=== PATIENT | female | born 1945 | race Two or more races ===

== ENCOUNTER 2016-12-18 13:26 | Inpatient (IN) | payer MEDICARE, OTHER ==
[~2016-12-18] VITALS: Ht 160 cm; Wt 63.5 kg
[~2016-12-18 13:26] MED LIST: ALENDRONATE SOD70 MG ORAL; AMLODIPINE BESY10 MG PO; ATENOLOL50 MG PO; CEFTIN500 MG ORAL; DIOVAN320 MG PO; HYDROCHLOROTHIA25 MG PO; HYDROCHLORTHIAZIDE PO; NORCO 5-325 TA1 EACH PO; OMEPRAZOLE20 M3 PO; PRAVASTATIN SOD80 M1 PO; SERTRALINE HCL50 MG ORAL; ZOFRAN4 M1 ORAL
[2016-12-18] MEDS ORDERED: Meclizine 25mg tab ORAL ONE (14:00)
[2016-12-18 14:05] VITALS: BP 135/91
[2016-12-18] MEDS ORDERED: CRESTOR20 MG ORAL (14:06)
[2016-12-18] MEDS ORDERED: NORCO 10/3251 EA ORAL (14:06)
[2016-12-18] MEDS ORDERED: COMPAZINE25 MG RECTAL ×2 (14:06→19:45)
--- NOTE | 2016-12-18 14:07 | Emergency Room Report ---
History of Present Illness General Chief Complaint: Nausea, Vomiting, and Diarrhea Source: Family Member Present Illness HPI Patient is a 71-year-old female who presented after increased dizziness. Patient reported having increased spinning sensation associated with nausea and vomiting. Patient also reported having some ringing sensation both years. She denied any recent trauma. She denied any abdominal pain. She had not been having any fever she denied recent illness. The patient is nondiabetic. Allergies: Coded Allergies: ACETAMINOPHEN (Unverified Allergy, Intermediate, Patient develop rashes all over, 06/03/15) OXYCODONE (Unverified Allergy, Intermediate, Patient develop rashes all over, 06/03/15) Uncoded Allergies: percocet (Allergy, Unknown, 06/03/15) Patient History Reviewed Nursing Documentation: PMH: Agreed, PSxH: Agreed Nursing Documentation-PMH Hx Cardiac Problems: Yes Hx Hypertension: Yes Hx Cancer: No Hx Gastrointestinal Problems: Yes Hx Neurological Problems: No Physical Exam Vital Signs Date Time Temp Pulse Resp B/P Pulse Ox O2 Delivery O2 Flow Rate FiO2 12/18/16 13:53 98.2 96 15 135/91 99 Room Air Medical Decision Making Diagnostic Impression: Primary Impression: Generalized weakness Additional Impressions: Dehydration Vertigo Unsteady gait ER Course Patient presented for generalized weakness.Patient presented for generalized weakness. Differential diagnosis included was not limited to anemia, urinary tract infection, electrolyte abnormality, hypothyroidism, myocardial infarction , myasthenia gravis, dehydration, among others. Because of complexity of patient's case laboratory testing and imaging studies were ordered. EKG interpreted by me showed normal sinus rhythm patient had a prolonged QT interval there were no acute ST or T wave changes. The patient was given IV fluids as well as IV Zofran. CT the head read by read by radiology showed mild cerebral atrophy without evident acute hemorrhage or stroke. The patient was given meclizine. The patient started on IV antibiotics for urinary tract infection Laboratory Tests Test 12/18/16 14:05 White Blood Count 9.2 K/UL (4.8-10.8) Red Blood Count 4.71 M/UL (4.20-5.40) Hemoglobin 13.6 G/DL (12.0-16.0) Hematocrit 41.8 % (37.0-47.0) Mean Corpuscular Volume 89 FL (80-99) Mean Corpuscular Hemoglobin 28.9 PG (27.0-31.0) Mean Corpuscular Hemoglobin Concent 32.5 G/DL (32.0-36.0) Red Cell Distribution Width 13.0 % (11.6-14.8) Platelet Count 319 K/UL (150-450) Mean Platelet Volume 7.5 FL (6.5-10.1) Neutrophils (%) (Auto) 65.4 % (45.0-75.0) Lymphocytes (%) (Auto) 24.7 % (20.0-45.0) Monocytes (%) (Auto) 7.0 % (1.0-10.0) Eosinophils (%) (Auto) 1.7 % (0.0-3.0) Basophils (%) (Auto) 1.2 % (0.0-2.0) Urine Color Yellow Urine Appearance Slightly cloudy Urine pH 5 (4.5-8.0) Urine Specific [place] 1.020 (1.005-1.035) Urine Protein 2+ (NEGATIVE) H Urine Glucose (UA) Negative (NEGATIVE) Urine Ketones 1+ (NEGATIVE) H Urine Occult Blood 2+ (NEGATIVE) H Urine Nitrite Negative (NEGATIVE) Urine Bilirubin 1+ (NEGATIVE) H Urine Ictotest Negative Urine Urobilinogen 1 MG/DL (0.0-1.0) H Urine Leukocyte Esterase 3+ (NEGATIVE) H Urine RBC 2-4 /HPF (0 - 2) H Urine WBC 10-15 /HPF (0 - 2) H Urine Squamous Epithelial Cells Few /LPF (NONE/OCC) Urine Bacteria Few /HPF (NONE) Sodium Level 146 mEQ/L (135-145) H Potassium Level 3.0 mEQ/L (3.4-4.9) L Chloride Level 100 mEQ/L (98-107) Carbon Dioxide Level 26 mEQ/L (20-30) Anion Gap 20 (5-15) H Blood Urea Nitrogen 9 mg/dL (7-23) Creatinine 1.0 mg/dL (0.5-0.9) H Estimate Glomerular Filtration Rate 54.8 mL/min (>60) Glucose Level 133 mg/dL (74-106) H Calcium Level 10.0 mg/dL (8.6-10.2) Total Bilirubin 0.5 mg/dL (0.0-1.2) Aspartate Amino Transferase (AST) 17 U/L (5-40) Alanine Aminotransferase (ALT) 11 U/L (3-33) Alkaline Phosphatase 84 U/L (35-104) Troponin I < 0.30 ng/mL (<=0.30) Total Protein 7.1 g/dL (6.6-8.7) Albumin 4.3 g/dL (3.5-5.2) Globulin 2.8 g/dL Albumin/Globulin Ratio 1.5 (1.0-2.7) EKG Diagnostic Results Rate: normal Rhythm: NSR ST Segments: no acute changes Rhythm Strip Diag. Results EP Interpretation: yes Rhythm: NSR, no PVC's, no ectopy Last Vital Signs Date Time Temp Pulse Resp B/P Pulse Ox O2 Delivery O2 Flow Rate FiO2 12/18/16 14:05 98.2 15 135/91 99 Room Air 12/18/16 13:53 96 Status: unchanged Disposition: ADMITTED INPATIENT Condition: Serious Anthony Ritchie Dec 18, 2016 14:07
[2016-12-18 14:21] LABS: APPEARANCE,URINE SLIGHTLY CLOUDY; BASOPHILS % (AUTO) 1.2 % (0.0-2.0); EOSINOPHILS % (AUTO) 1.7 % (0.0-3.0); KETONES,URINE 1+ (NEGATIVE); LEUKOCYTE ESTERASE ,URINE 3+ (NEGATIVE); LYMPHOCYTES % (AUTO) 24.7 % (20.0-45.0); MEAN CORPUSCULAR HEMOGLOBIN 28.9 PG (27.0-31.0); MEAN CORPUSCULAR HGB CONC 32.5 G/DL (32.0-36.0); MEAN CORPUSCULAR VOLUME 89 FL (80-99); MEAN PLATELET VOLUME 7.5 FL (6.5-10.1); NEUTROPHILS % (AUTO) 65.4 % (45.0-75.0); NITRITE,URINE NEGATIVE (NEGATIVE); PH,URINE 5 (4.5-8.0); PLATELET COUNT 319 K/UL (150-450); PROTEIN,URINE 2+ (NEGATIVE); RED BLOOD COUNT 4.71 M/UL (4.20-5.40); UROBILINOGEN,URINE 1 MG/DL (0.0-1.0); WHITE BLOOD COUNT 9.2 K/UL (4.8-10.8)
[2016-12-18 14:28] LABS: BACTERIA,URINE FEW /HPF; SQUAMOUS EPITHELIAL CELL,UR FEW /LPF (NONE/OCC)
[2016-12-18 14:29] LABS: ICTOTEST NEGATIVE
[2016-12-18 14:32] LABS: ALBUMIN/GLOBULIN RATIO 1.5 (1.0-2.7); GLOMERULAR FILTRATION RATE 54.8 mL/min (>60); TOTAL PROTEIN 7.1 g/dL (6.6-8.7); TROPONIN I < 0.30 ng/mL (<=0.30)
[2016-12-18] MEDS ORDERED: cefTRIAXone 1 GM in NS 55 ML IVPB ONE (15:15)
[2016-12-18 15:30] VITALS: BP 130/62
--- NOTE | 2016-12-18 15:44 | Diagnostic Imaging Report ---
Indication: Back pain Comparison: None Findings: 3 views of the sacrum and coccyx were obtained. The bones are osteopenic. No definite fracture is identified. Sacroiliac are relatively symmetric. Degenerative changes of the lower lumbar spine with endplate and facet spur formation noted. There is a fracture of the left pubis which appears old. Impression: No acute sacral fracture identified. If there strong clinical suspicion or continued symptoms, suggest obtaining MRI. Osteopenia Old left pubis fracture Lower lumbar spondylosis
[2016-12-18] MEDS ORDERED: cefTRIAXone 1 GM in D5W 55 ML IVPB ONE (15:45)
--- NOTE | 2016-12-18 16:01 | Diagnostic Imaging Report ---
Indication: Dizziness Technique: Contiguous 5 mm thick transaxial imaging of the head obtained in a Siemens Sensation [address] scanner. Soft tissue and bone windows generated. Total Dose length Product (DLP): [address] Dose Index Volume (CTDIvol): 70.38 mGy Comparison: none Findings: There is mild prominence of the ventricles, basal cisterns, and cerebral sulci consistent with atrophy. Mild, nonspecific, white matter hypoattenuation is noted throughout the brain consistent with chronic small vessel disease. There is no midline shift, edema, acute hemorrhage, mass effect, or abnormal extra-axial fluid collections. Bones and extra osseous soft tissues are unremarkable. Impression: No acute intracranial bleed, mass effect or edema. Mild atrophy of the brain. Nonspecific white matter hypoattenuation probably due to chronic small vessel disease. The CT scanner at [facility] is accredited by the [employer] and the scans are performed using protocols designed to limit radiation exposure to as low as reasonably achievable to attain images of sufficient resolution adequate for diagnostic evaluation.
[2016-12-18] MEDS ORDERED: SERTRALINE HCL100 MG PO (19:45)
[2016-12-18] MEDS ORDERED: TENORMIN25 MG ORAL (19:45)
[2016-12-18 20:00] VITALS: BP 138/110
[2016-12-18] MEDS ORDERED: Meclizine 25mg tab ORAL PRN (20:30)
[2016-12-18] MEDS ORDERED: Pneumococcal Vaccine 25mcg/0.5ml IM ONE (22:00)
[2016-12-18] MEDS: Heparin 5000 units/ml inj SUBQ SCH (22:50)
[2016-12-18] MEDS: Norco 10mg/325mg tab ORAL PRN (22:52)
[2016-12-19 00:43] VITALS: BP 125/111
[2016-12-19 04:00] VITALS: BP 113/81
[2016-12-19 07:21] LABS: EOSINOPHILS % (AUTO) 3.5 % (0.0-3.0); LYMPHOCYTES % (AUTO) 36.3 % (20.0-45.0); MEAN CORPUSCULAR HEMOGLOBIN 29.4 PG (27.0-31.0); MEAN CORPUSCULAR HGB CONC 33.3 G/DL (32.0-36.0); MEAN CORPUSCULAR VOLUME 88 FL (80-99); MEAN PLATELET VOLUME 8.3 FL (6.5-10.1); MONOCYTES % (AUTO) 9.4 % (1.0-10.0); NEUTROPHILS % (AUTO) 49.8 % (45.0-75.0); PLATELET COUNT 256 K/UL (150-450); RED BLOOD COUNT 3.81 M/UL (4.20-5.40); RED CELL DISTRIBUTION WIDTH 12.8 % (11.6-14.8)
[2016-12-19 07:37] LABS: ALANINE AMINOTRANSFERASE 9 U/L (3-33); ALBUMIN/GLOBULIN RATIO 1.4 (1.0-2.7); ANION GAP 14 (5-15); ASPARTATE AMINO TRANSFERASE 14 U/L (5-40); CALCIUM 9.5 mg/dL (8.6-10.2); CARBON DIOXIDE 27 mEQ/L (20-30); CHLORIDE 103 mEQ/L (98-107); CHOLESTEROL 128 mg/dL (< 200); CHOLESTEROL/HDL RATIO 2.7 (3.3-4.4); CREATININE 0.8 mg/dL (0.5-0.9); GLOMERULAR FILTRATION RATE > 60 mL/min (>60); HEMOLYSIS 3; LDL CHOLESTEROL (CALC.) 55 mg/dL (60-99); POTASSIUM 3.7 mEQ/L (3.4-4.9); SODIUM 144 mEQ/L (135-145); TOTAL PROTEIN 6.2 g/dL (6.6-8.7)
[2016-12-19 08:00] VITALS: BP 144/104
[2016-12-19] MEDS: Sertraline 100mg tab ORAL SCH (08:34)
[2016-12-19] MEDS: Atenolol 25mg tab ORAL SCH (08:34)
[2016-12-19] MEDS: Irbesartan 150mg tablet ORAL SCH (08:36)
[2016-12-19] MEDS: Heparin 5000 units/ml inj SUBQ SCH ×2 (08:39→20:44)
[2016-12-19 12:00] VITALS: BP 136/82
[2016-12-19] MEDS: Norco 10mg/325mg tab ORAL PRN ×2 (13:13→20:50)
[2016-12-19] MEDS: D5 1/2NS w/KCl 20mEq 1,000 ML IV SCH ×3 (13:14→18:28)
[2016-12-19 16:00] VITALS: BP 118/74
[2016-12-19] MEDS: cefTRIAXone 1 GM in D5W 55 ML IVPB SCH (16:23)
--- NOTE | 2016-12-19 16:51 | Consultation ---
Consult Note Consult Note NEUROLOGY CONSULTATION: Full note dictated #[id number] 71 y/o, RH, HF with PH of HTN, high cholesterol, arthritis. About 1 week ago started to have episodes of positional vertigo. Yesterday vertigo became more frequent and severe and thus hospitalized. ON EXAM: Mild memory problems. Vertigo when head turned to left with nystagmus. IMPRESSION; Labyrinthine vertigo - possibly due to labyrinthitis vs initial presentation of BPV. REC: Valium 2 mg PO q HS. Rx of UTI When better will instruct on how to perform BD Exercises. Michele Beaver M.D., M.S.P.H. MICHELE BEAVER Dec 19, 2016 16:51
[2016-12-19 18:11] LABS: HEMOGLOBIN A1C 5.2 % (< 6.0)
[2016-12-19 20:00] VITALS: BP 124/77
[2016-12-19] MEDS ORDERED: cefTRIAXone 1gm/D5W 55ml IVPB SCH ×2 (22:00)
--- NOTE | 2016-12-19 22:17 | Consultation ---
DATE OF CONSULTATION: 12/19/2016 NEUROLOGY CONSULTATION CONSULTING PHYSICIAN: Andrés Beaver M.D. REQUESTING PHYSICIAN: Aman Hardin M.D. HISTORY: Ms. Lesia Wallace is a 71-year-old, right-handed lady who does have a past history of hypertension, dyslipidemia, and arthritis. She was functioning relatively well until approximately a week ago when she started to have episodes of vertigo. These episodes of vertigo consist of a spinning sensation, and the first time she noticed this sensation she was when she was turning in bed. Since then, she has had multiple similar episodes lasting for a few seconds to what she thinks is a minute or so and these episodes almost always occur when she is turning in bed or when she is walking around. She denies any change in her hearing, any viral syndrome prior to this problem starting, any weakness on one side or the other, numbness on one side or the other, problems with speech, problems with language, problems with vision, or any other neurological symptoms. She says that she did have an episode of vertigo approximately 25 years ago but she does not remember the exact details of what happened at that time. PAST MEDICAL HISTORY: Significant for hypertension, dyslipidemia, and arthritis. FAMILY HISTORY: One of her daughters has hypertension and arthritis, another daughter from liver disease. PERSONAL HISTORY: Home: She lives with other family members. 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 Habits: There is no history of alcohol, tobacco, or illicit drug use. PRESENT MEDICATIONS: Include ceftriaxone, Norvasc, Tenormin, Zoloft, Protonix, Avapro, Pravachol, heparin for DVT prophylaxis, [place] as needed, Zofran as needed, Compazine as needed, Antivert as needed. PHYSICAL EXAMINATION: GENERAL: She is a well-developed, well-nourished, pleasant lady, lying in bed, in no acute distress. VITAL SIGNS: Pulse 96 per minute, blood pressure 136/82 mmHg, respirations 20 per minute, and temperature 98.9 degrees Fahrenheit. HEAD: Normocephalic and atraumatic. EENT: Examination benign NECK: No neck rigidity was observed. NEUROLOGICAL EXAMINATION: MENTAL STATUS EXAMINATION: She was alert and awake. She was oriented to person, place, and time except for the exact date. She was able to recall 3/3 words immediately after 1 minute and after 3 minutes. She was able to remember president Obama but could not remember presidents prior to that. Her mathematical skills were fairly good. Her visuospatial function was impaired. SPEECH: She had no dysarthria. LANGUAGE: She had no aphasia in Sami. CRANIAL NERVE EXAMINATION: II: The visual min were intact to confrontation testing. III, IV & : External ocular movements were full and the pupils 3 mm in diameter equal, round, regular, and reactive to light. V: She had normal facial sensations and the temporales, masseters, and pterygoids functioned normally. VII: She had normal facial expressions and no facial asymmetry. VIII: She was able to hear well bilaterally and had no nystagmus. IX: The palate moved symmetrically on phonation. X: She had no hoarseness of voice. XI: The sternocleidomastoids and trapezii functioned normally. XII: The tongue was in the midline without any fasciculations or atrophy. MOTOR SYSTEM: The tone was normal in all four extremities. Examination of muscle mass revealed no focal wasting. Examination of power revealed grade 5/5 power in all muscle groups tested. SENSORY EXAMINATION: She had intact sensations to pinprick, light touch, and graphesthesia. COORDINATION: She performed well on oerrow-xt-afvf and ilfg-sw-fwus testing. Romberg test was negative. REFLEXES: A 1++ and bilaterally symmetrical at the biceps, triceps, and brachioradialis. 1+ at both knees, 0 at both ankles. The plantar responses were flexor bilaterally. STANCE: She had a normal stance. GAIT: She had a normal gait. Hallpike maneuver: She had vertigo and nystagmus when the head was moved to the left side. This lasted for approximately 15 seconds and then fatigued. She felt much better when her head was placed in the midline. She had no nystagmus or vertigo when her head was turned to the right side. When the head was done to the left side again she again had a vertigo but this time the nystagmus and vertigo only lasted for approximately 5 seconds. DIAGNOSTIC IMPRESSION: 1. Ms. Lesia Wallace is a 71-year-old, right-handed lady who does have a past history of hypertension and dyslipidemia, who approximately a week ago started to have spells of vertigo, these vertiginous spells usually occur with a change in position either in bed or when she is up and about. 2. On neurological examination, at this time, she does have mild problems with orientation, memory, and visuospatial function. She also has globally diminished reflexes and has vertigo and nystagmus when the head is turned to the left side on Hallpike maneuver, this vertigo and nystagmus is fatigable. 3. Laboratory data obtained thus far revealed that she is mildly anemic with a hemoglobin of 11.2. The chemistry panel is relatively benign. The TSH is normal. However her urinalysis reveals 3+ leukocyte esterase, 2 to 4 red blood cells, and 10 to 15 white blood cells per high-power field compatible with a urinary tract infection. 4. The patient's history and neurological examination are most compatible with labyrinthine vertigo. This labyrinthine vertigo could either be due to labyrinthitis most probably of a viral nature, versus the initial presentation of benign positional vertigo. RECOMMENDATIONS: 1. The patient was given an explanation of the above mentioned findings. 2. She will be started on Valium 2 mg p.o. at bedtime. 3. If she is feeling a little better tomorrow, we will instruct her on how to perform Flowers-Daroff exercises. 4. She should be worked up thoroughly for other treatable causes of vertigo with in addition to the laboratory tests already done, a B12 level, folate level, vitamin D level, RPR glycohemoglobin, Westergren sedimentation rate, and TSH. Thank you for entrusting me with the care of Ms. Poli Wallace. I shall follow her with you. Andrés Beaver M.D., M.S.P.H. DR: Ermelinda JOB#: [id number] ALEX
--- NOTE | 2016-12-19 23:28 | History and Physical Report ---
DATE OF ADMISSION: 12/18/2016 HISTORY OF PRESENT ILLNESS: The patient is a very pleasant 71-year-old female with a history of hypertension who presented to the emergency room with complaints of dizziness over the past few days, room spinning, some nausea and vomiting. She did also complain of some ringing sensation in both ears. She denies any fall or trauma. She admits to having had a headache. She denies any fevers or chills. Denies any URI symptoms. Denies any abdominal pain. No changes in her bowel habits. Denies any fevers or chills. PAST MEDICAL HISTORY: History of hypertension, history of chronic back pain, history of vertigo in the past, history of nausea in the past, history of osteoarthritis, history of hyperlipidemia and history of arthritis. MEDICATIONS: Please see reconciled medication list. ALLERGIES: She is allergic apparently to oxycodone and acetaminophen. The patient developed a rash in June 2015. SOCIAL HISTORY: She does not smoke and does not drink any alcohol. She has a very supportive family. FAMILY HISTORY: Noncontributory. REVIEW OF SYSTEMS: She denies any visual problems. Denies any sore throat. She denies any cough. No fevers or chills. She states she fell as a result of her dizziness over the past few days. She also feels weak and fatigued. PHYSICAL EXAMINATION: GENERAL: She is well developed and well nourished, currently in no apparent distress. VITAL SIGNS: Blood pressure in the ER was 135/91, respirations of 15, temperature 98.2 degrees, pulse 96, and saturations 99% room air. HEENT: Head is normocephalic and atraumatic. Pupils are equal and reactive to light. Extraocular muscles are intact. Eyes are anicteric. NECK: Supple. No jugular venous distention. LUNGS: Clear. HEART: Tachycardic. S1 and S2. ABDOMEN: Soft. Positive bowel sounds. EXTREMITIES: No clubbing, cyanosis, or edema. NEUROLOGIC: Nonfocal. She has negative brain maneuver. LABORATORY AND DIAGNOSTIC: EKG reveals a sinus rhythm without any acute ST-T wave changes. Labs reveal a white count of 9.2, hemoglobin 13.6, hematocrit 41.8 and platelet count 319,000. Chemistry reveals a sodium 144, potassium 3.7, chloride 103, bicarbonate 27, BUN 7 and creatinine 0.8. Glycohemoglobin was 5.0. Lactic acid 0.8. Troponin less than 0.38. B12 level greater than 2000. TSH was normal. Cholesterol was 128, LDL was 55 and HDL was 48. Urinalysis reveals 10 to 15 WBCs, 3+ leukocyte esterase, 1+ ketones, and 2+ occult blood. Head CT reveals no acute intracranial bleed, mass-effect or edema. Mild atrophy of the brain. Nonspecific white matter hypoattenuation, probably due to chronic small vessel disease. They also did x-rays of her sacrum, which revealed osteopenia, old left pubis fracture. No acute sacral fracture. Lumbar spondylosis. ASSESSMENT AND PLAN: The patient is a very pleasant 71-year-old female, history of hypertension, hypercholesterolemia, and arthritis presented to the emergency room with dizziness, lightheadedness, room spinning and fall. The patient also complained of some tinnitus. The patient has been admitted. She also appears to be dehydrated and had urinary tract infection. She will be given IV fluids, given antibiotics for UTI, and check her cultures. I will order an MRI of her brain and have Neurology consultation see her as well from Dr. Beaver. The patient should be on DVT and ulcer prophylaxis. Aman Hardin M.D. DR: MARGY JOB#: [id number] CC:
[2016-12-20] VITALS: BP 136/96
[2016-12-20 04:00] VITALS: BP 128/89
[2016-12-20 07:08] LABS: EOSINOPHILS % (AUTO) 3.8 % (0.0-3.0); LYMPHOCYTES % (AUTO) 34.8 % (20.0-45.0); MEAN CORPUSCULAR HEMOGLOBIN 29.6 PG (27.0-31.0); MEAN CORPUSCULAR HGB CONC 32.9 G/DL (32.0-36.0); MEAN CORPUSCULAR VOLUME 90 FL (80-99); MEAN PLATELET VOLUME 8.2 FL (6.5-10.1); MONOCYTES % (AUTO) 8.1 % (1.0-10.0); NEUTROPHILS % (AUTO) 52.3 % (45.0-75.0); PLATELET COUNT 232 K/UL (150-450); RED BLOOD COUNT 3.84 M/UL (4.20-5.40); RED CELL DISTRIBUTION WIDTH 13.4 % (11.6-14.8)
[2016-12-20 07:24] LABS: ANION GAP 15 (5-15); CALCIUM 9.2 mg/dL (8.6-10.2); CARBON DIOXIDE 25 mEQ/L (20-30); CHLORIDE 107 mEQ/L (98-107); CREATININE 0.7 mg/dL (0.5-0.9); GLOMERULAR FILTRATION RATE > 60 mL/min (>60); HEMOLYSIS 14; POTASSIUM 4.4 mEQ/L (3.4-4.9); SODIUM 147 mEQ/L (135-145)
[2016-12-20] MEDS: D5 1/2NS w/KCl 20mEq 1,000 ML IV SCH (07:57)
[2016-12-20 08:00] VITALS: BP 133/90
[2016-12-20] MEDS: Sertraline 100mg tab ORAL SCH (08:51)
[2016-12-20] MEDS: Irbesartan 150mg tablet ORAL SCH (08:52)
[2016-12-20] MEDS: Atenolol 25mg tab ORAL SCH (08:52)
[2016-12-20] MEDS: Heparin 5000 units/ml inj SUBQ SCH (08:54)
[2016-12-20] MEDS: Norco 10mg/325mg tab ORAL PRN (09:00)
[2016-12-20 12:00] VITALS: BP 131/95
--- NOTE | 2016-12-20 12:52 | Neurology Progress Note ---
Interim History Interim History Interim History Ms. Poli Wallace feels better today. The vertigo has been less frequent and less severe. She denies any new neurologic symptoms. She specifically denies any weakness, numbness, hearing problems , visual problems, or language problems. Review of Systems Neuro Review of Systems Benign. Objective Physical Exam Last Vital Signs Date Time Temp Pulse Resp B/P Pulse Ox O2 Delivery O2 Flow Rate FiO2 12/20/16 12:00 97.2 89 18 131/95 96 Room Air Laboratory Tests Test 12/19/16 17:35 12/20/16 05:50 Erythrocyte Sedimentation Rate 40 MM/HR (0-30) H Hemoglobin A1c 5.2 % (< 6.0) Vitamin B12 Level > 2000 pg/mL (211-946) H Vitamin D 25-Hydroxy Pending 25-Hydroxy Vitamin D2 Pending 25-Hydroxy Vitamin D3 Pending Folate 13.1 ng/mL (>3.0) Rapid Plasma Reagin Non reactive (Non Reactive) White Blood Count 7.0 K/UL (4.8-10.8) Red Blood Count 3.84 M/UL (4.20-5.40) L Hemoglobin 11.4 G/DL (12.0-16.0) L Hematocrit 34.5 % (37.0-47.0) L Mean Corpuscular Volume 90 FL (80-99) Mean Corpuscular Hemoglobin 29.6 PG (27.0-31.0) Mean Corpuscular Hemoglobin Concent 32.9 G/DL (32.0-36.0) Red Cell Distribution Width 13.4 % (11.6-14.8) Platelet Count 232 K/UL (150-450) Mean Platelet Volume 8.2 FL (6.5-10.1) Neutrophils (%) (Auto) 52.3 % (45.0-75.0) Lymphocytes (%) (Auto) 34.8 % (20.0-45.0) Monocytes (%) (Auto) 8.1 % (1.0-10.0) Eosinophils (%) (Auto) 3.8 % (0.0-3.0) H Basophils (%) (Auto) 1.0 % (0.0-2.0) Sodium Level 147 mEQ/L (135-145) H Potassium Level 4.4 mEQ/L (3.4-4.9) Chloride Level 107 mEQ/L (98-107) Carbon Dioxide Level 25 mEQ/L (20-30) Anion Gap 15 (5-15) Blood Urea Nitrogen 7 mg/dL (7-23) Creatinine 0.7 mg/dL (0.5-0.9) Estimat Glomerular Filtration Rate > 60 mL/min (>60) Glucose Level 92 mg/dL (74-106) Calcium Level 9.2 mg/dL (8.6-10.2) Neurologic Exam Objective PHYSICAL EXAMINATION: GENERAL: She is a well-developed, well-nourished, pleasant lady, lying in bed, in no acute distress. HEAD: Normocephalic and atraumatic. EENT: Examination benign NECK: No neck rigidity was observed. NEUROLOGICAL EXAMINATION: MENTAL STATUS EXAMINATION: She was alert and awake. She was oriented to person, place, and time except for the exact date. She was able to recall 3/3 words immediately after 1 minute and after 3 minutes. She was able to remember president Obama but could not remember presidents prior to that. Her mathematical skills were fairly good. Her visuospatial function was impaired. SPEECH: She had no dysarthria. LANGUAGE: She had no aphasia in Yi. CRANIAL NERVE EXAMINATION: II: The visual min were intact to confrontation testing. III, IV & : External ocular movements were full and the pupils 3 mm in diameter equal, round, regular, and reactive to light. V: She had normal facial sensations and the temporales, masseters, and pterygoids functioned normally. VII: She had normal facial expressions and no facial asymmetry. VIII: She was able to hear well bilaterally and had no nystagmus. IX: The palate moved symmetrically on phonation. X: She had no hoarseness of voice. XI: The sternocleidomastoids and trapezii functioned normally. XII: The tongue was in the midline without any fasciculations or atrophy. MOTOR SYSTEM: The tone was normal in all four extremities. Examination of muscle mass revealed no focal wasting. Examination of power revealed grade 5/5 power in all muscle groups tested. SENSORY EXAMINATION: She had intact sensations to pinprick, light touch, and graphesthesia. COORDINATION: She performed well on keeeqj-hy-mfmo and xdxe-dg-dnyn testing. Romberg test was negative. REFLEXES: A 1++ and bilaterally symmetrical at the biceps, triceps, and brachioradialis. 1+ at both knees, 0 at both ankles. The plantar responses were flexor bilaterally. STANCE: She had a normal stance. GAIT: She had a normal gait. Hallpike maneuver: She had vertigo and nystagmus when the head was moved to the left side. This lasted for approximately 5 seconds and then fatigued. She felt much better when her head was placed in the midline. She had no nystagmus or vertigo when her head was turned to the right side. Impression/Recommendations Diagnostic Impression 1. Ms. Lesia Wallace is a 71-year-old, right-handed lady who does have a past history of hypertension and dyslipidemia, who approximately a week ago started to have spells of vertigo, these vertiginous spells usually occur with a change in position either in bed or when she is up and about. 2. She feels better today. The vertigo is less frequent and less severe today. 3. On neurological examination, at this time, she does have mild problems with orientation, memory, and visuospatial function. She also has globally diminished reflexes and has vertigo and nystagmus when the head is turned to the left side on Hallpike maneuver, this vertigo and nystagmus is fatigable. 4. Laboratory data obtained thus far revealed that she is mildly anemic with a hemoglobin of 11.2. The chemistry panel is relatively benign. The TSH is normal. However her urinalysis reveals 3+ leukocyte esterase, 2 to 4 red blood cells, and 10 to 15 white blood cells per high-power field compatible with a urinary tract infection. 5. The patient's history and neurological examination are most compatible with labyrinthine vertigo. This labyrinthine vertigo could either be due to labyrinthitis most probably of a viral nature, versus the initial presentation of benign positional vertigo. It is better today. Recommendations 1. Continue present management. 2. Continue Valium 2 mg p.o. at bedtime. 3. She was instructed on how to perform Flowers-Daroff exercises and was told to perform 5 rotations in the morning and at night.. 4. Increase activity as tolerated. Michele Najera M.D., eMaghan. MICHELE NAJERA Dec 20, 2016 12:52
[2016-12-20] MEDS: cefTRIAXone 1 GM in D5W 55 ML IVPB SCH (15:48)
[2016-12-20 16:00] VITALS: BP 130/88
[2016-12-20] MEDS ORDERED: Tubing IV Secondary IV ONE (19:59)
[2016-12-20] MEDS ORDERED: NS 275ml ONE (19:59)
--- NOTE | 2016-12-21 10:31 | Discharge Summary ---
Discharge Summary Hospital Course Date of Admission Dec 18, 2016 at 17:07 Date of Discharge Dec 20, 2016 at 20:00 Admitting Diagnosis GEN. WEAKNESS HPI Chitra Poli Wallace is a 71 year old female who was admitted on Dec 18, 2016 at 17:07 for Generalized Weakness Hospital Course [id number] Discharge Discharge Disposition Patient was discharged to Home (01) Discharge Diagnoses: Tammy Parsons NP Dec 21, 2016 10:31
--- NOTE | 2016-12-22 05:37 | Discharge Summary 2 SIG ---
DATE OF ADMISSION: 12/18/2016 DATE OF DISCHARGE: 12/20/2016 ABRASIVE GRINDER: Andrés Beaver M.D. BRIEF HOSPITAL COURSE: The patient is a pleasant 71-year-old female with history of hypertension, presented to emergency room complaining of dizziness for the past few days, described as the room spinning with associated nausea and vomiting. She also complained of ringing sensation in both ears. Denies any fall or trauma and admits to having headache. She has a history of hypertension, chronic back pain, vertigo in the past, osteoarthritis, hyperlipidemia, and arthritis. At ED, EKG revealed sinus rhythm without acute ST to T-wave changes. Head CT revealed no acute intracranial bleed, mass effect, or edema with mild atrophy of the brain and nonspecific white matter hypoattenuation. X-ray of the sacrum revealed osteopenia with an old left pubic fracture. No acute sacral fracture. She appeared dehydrated and urinalysis revealed 10 to 15 WBCs with 3+ leukocyte esterase, 2+ occult blood, and 1+ ketone. She was given IV fluids and IV antibiotic. Dr. Beaver was consulted. Neurologic examination was done. A Hallpike maneuver was done. The patient had vertigo and nystagmus when the head was moved to the left side. She had no nystagmus or vertigo when the head was turned to the right. The patient's history and neurologic examination are most compatible with labyrinthine vertigo. She was started on Valium 2 mg p.o. q.h.s. and was given instructions on how to perform Flowers-Daroff exercises and was told to perform five rotations in the morning and at night. Urine culture showed growth of E. coli. The patient was given IV ceftriaxone. She was eventually discharged home. FINAL DIAGNOSES: 1. Labyrinthine vertigo. 2. Urinary tract infection with Escherichia coli. 3. Hypertension. 4. Dyslipidemia. 5. Osteopenia. 6. Dehydration. 7. Arthritis. Aman Hardin M.D. I have been assigned to dictate discharge summary on this account and I was not involved in the patient's management. Tammy Parsons N.P. DR: JULIO JOB#: [id number] CC:
[2016-12-22 08:09] LABS: VITAMIN D 25-OH TOTAL 33 ng/mL (.)
--- NOTE | 2016-12-22 17:07 | Diagnostic Imaging Report ---
APPROVED REPORT CPT Code: 70860 Present Symptoms Comments: Pain R/O DVT BILATERAL: Imaging reveals a patent deep venous system bilaterally. There is no evidence of thrombus within the femoral, popliteal or tibial segments. The greater saphenous veins are also within normal limits. Doppler indicates normal spontaneous flow within these segments.
--- NOTE | 2016-12-23 11:45 | Diagnostic Imaging Report ---
Indication: Dizziness Technique: Study was performed in a 1.5 Janis magnet. Gadolinium-enhanced MR angiography of the extracranial portions of both carotid arteries performed from the thoracic arch to the skull base. Maximum intensity projection images displayed in different projections. Comparison: None Findings: Right carotid: No significant carotid stenosis is identified. Left carotid: No significant stenosis is identified. Vertebral arteries below the skull base appear unremarkable. Impression: Negative MRA of the neck. No significant extracranial carotid stenosis identified.
--- NOTE | 2016-12-23 11:45 | Diagnostic Imaging Report ---
Indication: Dizziness Technique: The head was imaged in a 1.5 Janis magnet. Sequences obtained include sagittal and axial T1 FLAIR, axial T2 fast spin echo with fat saturation, axial T2 FLAIR, diffusion and ADC map. Gadolinium-enhanced axial and coronal T1 FLAIR obtained also. Comparison: None Findings: There is mild prominence of the sulci, ventricles, and basal cisterns consistent with atrophy. Mild, nonspecific T2 hyperintensity noted within white matter. This may be due to chronic small vessel disease. No abnormal enhancement is identified. There is no restricted diffusion. Manrique-white differentiation is normal. There is no mass effect, midline shift, edema, or hemorrhage. There are no abnormal extra-axial or intra-axial fluid collections. The corpus callosum and sella are unremarkable. The brainstem and cerebellum are unremarkable. Bone marrow signal within the visualized osseous structures appears age appropriate and unremarkable otherwise. The colon thickening in the paranasal sinuses especially the right maxillary sinus noted. Impression: No acute intracranial findings. Age-related findings including atrophy and evidence of chronic small vessel disease involving white matter tracts. Sinusitis
--- NOTE | 2017-01-11 13:39 | Cardiology Report ---
APPROVED REPORT EXAM: Two-dimensional and M-mode echocardiogram with Doppler and color Doppler. INDICATION Dizziness and Vertigo M-Mode DIMENSIONS Aortic Root2.7 (2.0-3.7cm) Aortic Cusp Exc.1.8 (1.5-2.0cm) Normal left ventricular chamber size, systolic function and wall motion. M-mode measurements not obtainable due to cardiac structure. Left ventricular ejection fraction estimated to be 60-65 %. No evidence of left ventricular hypertrophy. Small anterior pericardial effusion. Moderate posterior pericardial effusion. All other cardiac chamber sizes are within normal limits. Focal aortic valve sclerosis with adequate cusp excursion Thickened mitral valve leaflets with normal excursion. Mild mitral annulus and aortic root calcification. Pulmonic valve not well visualized. Normal tricuspid valve structure. IVC is normal in size with physiologic collapse. A color flow and spectral Doppler study was performed and revealed: No aortic regurgitation. No mitral regurgitation. Left ventricular diastolic dysfunction grade 1. Mild tricuspid regurgitation. Tricuspid systolic velocities suggests peak right ventricular systolic pressure of 24 mmHg
== END 2016-12-20 20:00 | disposition home or self-care (01) | DRG 149 ==
LOC: EMR 14:28 → 3E 17:07 → EDBEDREQ 17:35
DX: H81.09 Meniere's disease, unspecified ear (principal); N39.0 Urinary tract infection, site not specified; E86.0 Dehydration; I10 Essential (primary) hypertension; E78.00 Pure hypercholesterolemia, unspecified; M19.90 Unspecified osteoarthritis, unspecified site; H93.19 Tinnitus, unspecified ear; B96.20 Unspecified Escherichia coli [E. coli] as the cause of diseases classified elsewhere; E78.5 Hyperlipidemia, unspecified; Z23 Encounter for immunization
CPT/HCPCS: 36415; 70450; 70548; 70553; 72220; 80048; 80053; 80061; 81001; 82306; 82607; 82746; 83036; 83605; 83880; 84443; 84484; 85025; 85651; 86592; 86710; 87040; 87086; 87181; 90732; 93306; 93970; A9585; J2405; J8499

== ENCOUNTER 2018-01-13 14:06 | Outpatient (CLI) | payer MEDICARE, OTHER ==
[~2018-01-13 14:06] MED LIST changes: +COMPAZINE25 MG RECTAL; +CRESTOR20 MG ORAL; +NORCO 10/3251 EA ORAL; +SERTRALINE HCL100 MG PO; +TENORMIN25 MG ORAL
--- NOTE | 2018-01-13 15:23 | Diagnostic Imaging Report ---
Indication: Dyspnea Comparison: 01/30/2013 2 views of the chest obtained. The lungs are clear. Heart size is normal. The aorta is ectatic and moderately calcified. Bones are osteopenic. IMPRESSION: No acute disease
== END 2018-01-13 16:06 | disposition home or self-care (01) ==
LOC: RAD 14:06
DX: I10 Essential (primary) hypertension (principal); M85.80 Other specified disorders of bone density and structure, unspecified site; R06.00 Dyspnea, unspecified
CPT/HCPCS: 71046

== ENCOUNTER 2018-05-21 06:32 | Day surgery (SDC) | payer MEDICARE, OTHER ==
--- NOTE | 2018-05-20 23:37 | Pre-Procedure Note/Attestation ---
Pre-Procedure Note/Attestation Complete Prior to Procedure Planned Procedure: right - Removal of cataract and placement of intraocular lens right eye Procedure Narrative: Removal of cataract and placement of intraocular lens, right eye Indications for Procedure Pre-Operative Diagnosis: Cataract, combined, right eye Attestation I attest that I discussed the nature of the procedure; its benefits; risks and complications; and alternatives (and the risks and benefits of such alternatives ), prior to the procedure, with the patient (or the patient's legal insurance healthcare representative). I attest that, if there was a reasonable possibility of needing a blood transfusion, the patient (or the patient's legal insurance healthcare representative) was given the [place] Department of Health Services standardized written summary, pursuant to the Ariel Selena Blood Safety Act ([place] Health and Safety Code # 1645, as amended). I attest that I re-evaluated the patient just prior to the surgery and that there has been no change in the patient's H&P, except as documented below: Toby Sheehan MD May 20, 2018 23:37
[~2018-05-21] VITALS: Ht 152.4 cm; Wt 67.1 kg
[2018-05-21] VITALS (8 sets, daily range): BP systolic 125–156; BP diastolic 75–98
[~2018-05-21 06:32] MED LIST changes: +Pred Forte 1% Opth Susp 1ml RIGHT EYE ONE
[2018-05-21] MEDS ORDERED: Pred Forte 1% Opth Susp 1ml ONE ×2 (07:13→13:34)
[2018-05-21] MEDS ORDERED: Pred Forte 1% Opth Susp 1ml RIGHT EYE ONE (07:30)
[2018-05-21] MEDS: Ciprofloxacin Opth Soln 2.5ml RIGHT EYE SCH ×3 (07:31→07:49)
[2018-05-21] MEDS: Cyclopentolate 1% Opth Sol 2ml RIGHT EYE SCH ×3 (07:31→07:49)
[2018-05-21] MEDS: Tropicamide 1% Opth 15ml Soln RIGHT EYE SCH ×3 (07:31→07:49)
[2018-05-21] MEDS: Phenylephrine 10% Opth Soln 5ml RIGHT EYE SCH ×3 (07:31→07:49)
[2018-05-21] MEDS: Akten 3.5% 1ml Btl RIGHT EYE SCH ×3 (07:32→07:50)
[2018-05-21] MEDS ORDERED: fentaNYL 100 mcg/2 mL IV ONE (12:05)
[2018-05-21] MEDS ORDERED: Lidocaine 1% MPF 10mg/ml 5ml ONE ×3 (12:05→13:59)
[2018-05-21] MEDS ORDERED: LR 1000ml 1,000 ML IVLG SCH (12:24)
--- NOTE | 2018-05-21 12:24 | Anethesia Preoperative Eval ---
Anesthesia Pre-op PMH/ROS General Date of Evaluation: May 21, 2018 Anesthesiologist: Ozzie ASA Score: ASA 2 Mallampati Score Class I : Soft palate, uvula, fauces, pillars visible Class II: Soft palate, uvula, fauces visible Class III: Soft palate, base of uvula visible Class IV: Only hard plate visible Mallampati Classification: Class II Surgeon: Sissy Diagnosis: Right cataract Surgical Procedure: Right cataract extraaction with IOL Anesthesia History: none Family History: no anesthesia problems Allergies: Coded Allergies: No Known Allergies (Unverified , 05/21/18) Medications: see eMAR Past Medical History Cardiovascular: Reports: HTN, other - HLD; Denies: CAD, VT, valve dz, arrhythmia Pulmonary: Denies: asthma, COPD, ERIBERTO, other Gastrointestinal/Genitourinary: Reports: GERD; Denies: CRI, ESRD, other Neurologic/Psychiatric: Reports: depression/anxiety; Denies: dementia, CVA, TIA, other Endocrine: Denies: DM, hypothyroidism, steroids, other HEENT: Denies: cataract (L), cataract (R), glaucoma, YUHAAVIATAM (L), YUHAAVIATAM (R), other Hematology/Immune: Denies: anemia, DVT, bleeding disorder, other Musculoskeletal/Integumentary: Denies: OA, RA, DJD, DDD, edema, other PSxH Narrative: Right TKR, TESSIE, T&A Anesthesia Pre-op Phys. Exam Physician Exam Last Vital Signs Date Time Temp Pulse Resp B/P (MAP) Pulse Ox O2 Delivery O2 Flow Rate FiO2 05/21/18 07:25 98.3 65 18 125/79 95 Room Air 98.3 Constitutional: NAD Cardiovascular: RRR Respiratory: CTA Airway Exam Mallampati Score: Class II MO: full ROM: full Anesthesia Pre-op A/P Labs see chart Studies Pre-op Studies: EKG - sr Risk Assessment & Plan Assessment: ASA II Plan: MAC Status Change Before Surgery: No Pre-Antibiotics Drug: N/A MARVIN RANDLE M.D. May 21, 2018 12:24
[2018-05-21] MEDS ORDERED: EPINEPHrine 1mg/1ml Amp ONE (12:25)
--- NOTE | 2018-05-21 12:25 | Immediate Post-Op Evaluation ---
Immediate Post-Op Evalulation Immediate Post-Op Evalulation Procedure: Right cataract exctraction with IOL Date of Evaluation: May 21, 2018 Time of Evaluation: 15:03 IV Fluids: 600 Blood Products: 0 Estimated Blood Loss: 0 Urinary Output: 0 Blood Pressure Systolic: 151 Blood Pressure Diastolic: 93 Pulse Rate: 80 Respiratory Rate: 17 O2 Sat by Pulse Oximetry: 99 Temperature (Fahrenheit): 98.6 Pain Score (1-10): 0 Nausea: No Vomiting: No Complications 0 Patient Status: awake, reacts, patent, none Hydration Status: adequate Drug: N/A MARVIN RANDLE M.D. May 21, 2018 12:25
[2018-05-21] MEDS ORDERED: Labetalol 5mg/ml 20ml vial IV PRN (12:30)
[2018-05-21] MEDS ORDERED: fentaNYL 100 mcg/2 mL IV PRN (12:30)
[2018-05-21] MEDS ORDERED: DiphenhydrAMINE 50mg/ml Inj IVP PRN (12:30)
[2018-05-21] MEDS ORDERED: LR 1000ml ONE (13:30)
[2018-05-21] MEDS ORDERED: NS Irrig 1000ml ONE (13:30)
[2018-05-21] MEDS ORDERED: Sterile Water Irrig 1000ml IRRIG ONE (13:30)
[2018-05-21] MEDS ORDERED: DiphenhydrAMINE 50mg/ml Inj ONE (13:30)
[2018-05-21] MEDS ORDERED: BSS 500ml btl ONE ×2 (13:34→14:28)
[2018-05-21] MEDS ORDERED: Povidone-Iodine 5% opth solution ONE (13:34)
[2018-05-21] MEDS ORDERED: BSS 15ml BTL ONE (13:34)
[2018-05-21] MEDS ORDERED: Timolol 0.5% Op Soln 2.5ml ONE (13:34)
[2018-05-21] MEDS ORDERED: Dexamethasone 4mg/ml vial ONE (13:34)
[2018-05-21] MEDS ORDERED: Lidocaine 4% Amp ONE (13:34)
[2018-05-21] MEDS ORDERED: Tetracaine 0.5% Opth 4ml Soln ONE (13:34)
[2018-05-21] MEDS ORDERED: Maxitrol Opth Oint 3.5gm ONE (13:34)
[2018-05-21] MEDS ORDERED: Sodium Hyaluronate 10 mg/ml 0.85ml ONE (13:35)
[2018-05-21] MEDS ORDERED: Midazolam 2mg/2ml Inj ONE ×2 (13:48→14:01)
--- NOTE | 2018-05-21 13:52 | 48 Hour Post Anesthesia Eval ---
Post Anesthesia Evaluation Procedure: Right cataract exctraction with IOL Date of Evaluation: May 21, 2018 Airway: patent Nausea: No Vomiting: No Pain Intensity: 0 Hydration Status: adequate Cardiopulmonary Status: at baseline Mental Status/LOC: patient returned to baseline Post-Anesthesia Complications: 0 Follow-up care needed: ready to discharge MARVIN RANDLE M.D. May 21, 2018 13:52
[2018-05-21] MEDS ORDERED: Flumazenil 0.1mg/ml 5ml Inj IV ONE (14:04)
--- NOTE | 2018-05-21 14:55 | Discharge Instructions ---
Discharge Instructions Discharge Instructions Follow Up Orders Continue pre op eye drops Wear shield at all times except to place eye drops Followup in Dr Sheehan's office tomorrow Return to Work/School on: May 21, 2018 For Congestive Heart Failure Reminder Report to your physician any weight gain of 5 pounds or more in one week. Toby Sheehan MD May 21, 2018 14:55
--- NOTE | 2018-05-21 14:56 | Brief Operative Note ---
Immediate Post Operative Note Operative Note Pre-op Diagnosis: Cataract, combined, right eye Procedure: Phaco PC IOL, OD Post-op Diagnosis: same as pre-op Surgeon: Lashonda Sheehan MD [employer] Teacher: none Anesthesiologist: Dr Walter Anesthesia: local, MAC Specimen: none Complications: none Fluids: as per chart Implant(s) used?: Yes - ajit sn 60 wf 22.5 Toby Sheehan MD May 21, 2018 14:56
--- NOTE | 2018-05-21 18:15 | Operative Note - Dictated ---
DATE OF OPERATION: 05/21/2018 SURGEON: Toby Sheehan M.D. [employer] S[employer] SPECIALIST SURGEON: None. ANESTHESIOLOGIST: Dr. Walter. ANESTHESIA: Local/standby/monitored anesthesia care. PREOPERATIVE DIAGNOSIS: Combined cataract, right eye. POSTOPERATIVE DIAGNOSIS: Combined cataract, right eye. PROCEDURE: 1. Phacoemulsification of cataract, right eye. 2. Placement of posterior chamber intraocular lens, right eye (model Phill [id number], power 22.5). SPECIMENS: None. COMPLICATIONS: None. INDICATIONS FOR SURGERY: The patient had painless progressive decrease in the visual acuity in the right eye secondary to cataract. The patient understands the risks of surgery including infection, bleeding, need for further surgery, loss of vision, no improvement in vision, loss of the eye, loss of life, glaucoma, retinal detachment, understands these risks and elects to proceed with surgery. FINDINGS: The patient had a +3 to 4 nuclear sclerotic cataract as well as a +2 cortical cataract. In addition, the capsule was thin, but it remained intact during the entire procedure. OPERATIVE NOTE: After informed consent was obtained, the patient was brought into the operating room and placed in supine position. Time-out was performed and all criteria were met and everyone in the room agreed. The right eye was then draped and prepped in sterile manner for ocular surgery. A lid speculum was placed in the eye. A 1% lidocaine preservative-free was injected at the approximate 8:30 limbus. A conjunctival peritomy from approximately 8:30 to 9:30 was made and dissected posteriorly. Hemostasis was maintained with bipolar cautery. A 2.8 mm limbal incision was made centered at approximately 8:45 and dissected anteriorly. Attention was paid to the approximate 12 o'clock limbus where paracentesis was made and Shugarcaine was injected into the anterior chamber followed by Healon. The anterior chamber was then entered using a 2.8 mm keratome through the limbal incision. An anterior capsulorrhexis was then performed. Hydrodissection and hydrodelineation of the lens was then performed. The lens was then phacoemulsified using divide and conquer four-quadrant technique. Note, the lens was denser than I thought it would be. This necessitated starting the power of the phacoemulsification unit at grade 3 right from the beginning. After the lens was phacoemulsified using a divide and conquer four-quadrant technique, residual cortical material was then aspirated. The lens was taken from its package, placed into the cartridge, and Healon was placed into the anterior chamber and capsular bag. The lens was then injected into the capsular bag, but the trailing haptic was not curved in within the taco of the lens. I used a Sinskey hook to rotate the lens and place it into the capsular bag. Then there was a small rent on the anterior capsule at approximately 10 o'clock, but this did not go past the equator of the capsular bag. The entire capsular bag otherwise was totally intact. The lens was rotated so that it was aligned at the approximate 8:30 to 2:30 axis. Healon was then aspirated from the anterior chamber and capsular bag. Miochol was injected into the anterior chamber and the pupil came down nicely. The lens was visually inspected and both haptics and the optic were within the capsular bag. Two 10-0 nylon interrupted sutures were then placed through the limbal incision and both knots were rotated and buried. The wounds were checked and found to be watertight. The conjunctiva was then closed with forceps cautery. The lid speculum and drapes were removed from the eye and drops of Timoptic, ciprofloxacin, Pred Forte were placed in the eye followed by Maxitrol ointment and a shield. The patient tolerated the procedure well and left the operating room awake, alert, in stable condition. Toby Sheehan M.D. DR: Semaj JOB#: [id number] CC:
== END 2018-05-21 16:20 | disposition home or self-care (01) ==
LOC: SUR 06:32
DX: H25.11 Age-related nuclear cataract, right eye (principal); H25.011 Cortical age-related cataract, right eye; I10 Essential (primary) hypertension; E78.5 Hyperlipidemia, unspecified; K21.9 Gastro-esophageal reflux disease without esophagitis; F32.9 Major depressive disorder, single episode, unspecified; F41.9 Anxiety disorder, unspecified; Z96.651 Presence of right artificial knee joint
CPT/HCPCS: 66984; J0171; J1100; J1200; J2250; J3010; J7120; V2632; 94003; 94150

== ENCOUNTER 2018-07-25 21:39 | Emergency (ER) | payer MEDICARE, OTHER ==
[~2018-07-25] VITALS: Ht 162.6 cm; Wt 66.2 kg
[~2018-07-25 21:39] MED LIST changes: -Pred Forte 1% Opth Susp 1ml RIGHT EYE ONE
[2018-07-25 22:11] VITALS: BP 160/88
--- NOTE | 2018-07-25 22:22 | Emergency Room Report ---
History of Present Illness General Chief Complaint: Vomiting Source: Patient, Family Member Present Illness HPI Is a 73-year-old female with a history of hypertension. She presents with chief complaint of nausea and vomiting. According to her daughter she's been feeling nauseous for the last 8-9 days. Started vomiting today. Also with fever last night. Mild abdominal pain. Has body pain from arthritis. And diarrhea initially per patient. None now. Nothing made it better. Nothing made it worse. Pain is 5 out of 10. Denies any urinary complaint. Allergies: Coded Allergies: No Known Allergies (Unverified , 05/21/18) Patient History Past Medical History: see triage record, old chart reviewed, HTN Past Surgical History: hysterectomy Pertinent Family History: none Social History: Denies: smoking Now: No Immunizations: other Reviewed Nursing Documentation: PMH: Agreed; PSxH: Agreed Nursing Documentation-PMH Hx Cardiac Problems: Yes - ARTHRITIS Hx Hypertension: Yes Hx Cancer: No Hx Gastrointestinal Problems: No Hx Neurological Problems: No Review of Systems Eye: Denies: eye pain, blurred vision ENT: Denies: ear pain, nose congestion, throat swelling Respiratory: Denies: cough, shortness of breath Cardiovascular: Denies: chest pain, palpitations Gastrointestinal: Reports: abdominal pain, nausea, vomiting; Denies: diarrhea Musculoskeletal: Denies: back pain, joint pain Skin: Denies: rash Neurological: Denies: headache, numbness Endocrine: Denies: increased thirst, increased urine Hematologic/Lymphatic: Denies: easy bruising All Other Systems: negative except mentioned in HPI Physical Exam Vital Signs Date Time Temp Pulse Resp B/P (MAP) Pulse Ox O2 Delivery O2 Flow Rate FiO2 07/25/18 21:50 98.4 74 16 162/91 95 Room Air 98.4 vitals with high blood pressure Sp02 EP Interpretation: reviewed, normal General Appearance: well appearing, no apparent distress, alert Head: normocephalic, atraumatic Eyes: bilateral eye PERRL, bilateral eye EOMI ENT: hearing grossly normal, normal pharynx Neck: full range of motion, supple, no meningismus Respiratory: chest non-tender, lungs clear, normal breath sounds Cardiovascular #1: regular rate, rhythm, no murmur Gastrointestinal: normal bowel sounds, non tender, no mass, no organomegaly, no bruit, non-distended Musculoskeletal: back normal, gait/station normal, normal range of motion Psychiatric: mood/affect normal Skin: warm/dry Medical Decision Making Diagnostic Impression: Primary Impression: Nausea vomiting and diarrhea Additional Impressions: Cholelithiasis Qualified Codes: K80.20 - Calculus of gallbladder without cholecystitis without obstruction Hypokalemia ER Course Patient presents with mild abdominal pain with nausea and vomiting. She felt better now. No evidence of obstruction. CT scan showed large gallstone. No obstruction or infection. No acute abdomen. We'll discharge home. Lab Results Impression labs unremarkable CT/MRI/US Diagnostic Results CT/MRI/US Diagnostic Results : Imaging Test Ordered: CT abdomen pelvis Impression read by radiologist. Gallstone. Last Vital Signs Date Time Temp Pulse Resp B/P (MAP) Pulse Ox O2 Delivery O2 Flow Rate FiO2 07/25/18 22:11 98.4 70 16 160/88 95 Room Air 98.4 Status: improved Disposition: HOME, SELF-CARE Condition: Stable Scripts Ondansetron (Zofran) 4 Mg Tablet 4 MG ORAL Q6H PRN for Nausea & Vomiting, #15 TAB 0 Refills Prov: RENETTA CHARLTON M.D. 07/25/18 Referrals: Aman Hardin MD (PCP) Patient Instructions: Nausea and Vomiting, Adult Additional Instructions: Follow-up with your doctor in 7 days. Return if symptom worsen. RENETTA CHARLTON M.D. Jul 25, 2018 22:22
[2018-07-25] MEDS ORDERED: Acetaminophen 500mg (ES) tab ORAL ONE (22:30)
[2018-07-25 22:31] LABS: APPEARANCE,URINE CLEAR; BILIRUBIN, URINE NEGATIVE (NEGATIVE); COLOR,URINE PALE YELLOW; GLUCOSE, URINE (UA) NEGATIVE (NEGATIVE); KETONES,URINE NEGATIVE (NEGATIVE); LEUKOCYTE ESTERASE ,URINE NEGATIVE (NEGATIVE); NITRITE,URINE NEGATIVE (NEGATIVE); PH,URINE 9 (4.5-8.0); PROTEIN,URINE 2+ (NEGATIVE); UROBILINOGEN,URINE NORMAL MG/DL (0.0-1.0)
[2018-07-25 22:33] LABS: BASOPHILS % (AUTO) 1.1 % (0.0-2.0); EOSINOPHILS % (AUTO) 3.8 % (0.0-3.0); HEMATOCRIT 44.4 % (37.0-47.0); HEMOGLOBIN 15.3 G/DL (12.0-16.0); LYMPHOCYTES % (AUTO) 27.7 % (20.0-45.0); MEAN CORPUSCULAR VOLUME 91 FL (80-99); MONOCYTES % (AUTO) 6.6 % (1.0-10.0); NEUTROPHILS % (AUTO) 60.8 % (45.0-75.0); PLATELET COUNT 261 K/UL (150-450); RED BLOOD COUNT 4.87 M/UL (4.20-5.40); RED CELL DISTRIBUTION WIDTH 12.5 % (11.6-14.8); WHITE BLOOD COUNT 7.5 K/UL (4.8-10.8)
[2018-07-25 22:43] LABS: ANION GAP 12 mmol/L (5-15); BLOOD UREA NITROGEN 10 mg/dL (7-18); CALCIUM 8.2 MG/DL (8.5-10.1); CARBON DIOXIDE 29 MMOL/L (21-32); CHLORIDE 105 MMOL/L (98-107); CREATININE 0.7 MG/DL (0.55-1.30); SODIUM 146 MMOL/L (136-145)
[2018-07-25 22:49] LABS: ALANINE AMINOTRANSFERASE 21 U/L (12-78); ALKALINE PHOSPHATASE 95 U/L (46-116); ASPARTATE AMINO TRANSFERASE 19 U/L (15-37); BILIRUBIN,TOTAL 0.4 MG/DL (0.2-1.0)
--- NOTE | 2018-07-25 23:26 | Diagnostic Imaging Report ---
EXAM: CT Abdomen and Pelvis Without Intravenous Contrast CLINICAL HISTORY: ABD PAIN TECHNIQUE: Axial computed tomography images of the abdomen and pelvis without intravenous contrast. CTDI is 0.15, 17.25 mGy and DLP is 905 mGy-cm. One or more of the following dose reduction techniques were used: automated exposure control, adjustment of the mA and/or kV according to patient size, use of iterative reconstruction technique. COMPARISON: CT abdomen and pelvis dated 11/09/2015 FINDINGS: Lung bases: Clinical atelectasis. ABDOMEN: Liver: Probable cyst in the right hepatic lobe adjacent to the gallbladder fossa. Gallbladder and bile ducts: Gallstones. No CT evidence of acute cholecystitis. Pancreas: Unremarkable. Spleen: Unremarkable. Adrenals: Unremarkable. Kidneys and ureters: Peripelvic and cortical cysts seen in the kidneys. Stomach and bowel: Noninflamed colonic diverticulosis. PELVIS: Appendix: Appendix is unremarkable. Bladder: Gas within the urinary bladder likely secondary to recent instrumentation. Reproductive: Uterus is surgically absent. ABDOMEN and PELVIS: Intraperitoneal space: Unremarkable. Bones/joints: No compression forms within the thoracolumbar spine, unchanged. No dislocation. Soft tissues: Unremarkable. Vasculature: Unremarkable. No abdominal aortic aneurysm. Lymph nodes: Unremarkable. IMPRESSION: No acute findings.
[2018-07-25] MEDS ORDERED: ZOFRAN4 MG ORAL (23:48)
[2018-07-25 23:59] VITALS: BP 142/80
[2018-07-26] VITALS: BP 160/88
== END 2018-07-26 | disposition home or self-care (01) ==
LOC: EMR 22:04
DX: K80.20 Calculus of gallbladder without cholecystitis without obstruction (principal); I10 Essential (primary) hypertension
CPT/HCPCS: 36415; 74176; 80053; 81003; 83690; 85025; 96361; 96374; 99284; J2405; J8499

== ENCOUNTER 2018-12-31 06:59 | Day surgery (SDC) | payer MEDICARE, OTHER ==
--- NOTE | 2018-12-30 13:40 | NUR ---
LEFT MESSAGE WITH INSTRUCTION VIA LIBYAN Booker,[employer] #[id number].
[2018-12-31] VITALS (7 sets, daily range): BP systolic 101–131; BP diastolic 58–77
[~2018-12-31] VITALS: Ht 160 cm; Wt 65.8 kg
[~2018-12-31 06:59] MED LIST changes: +Indocyanine Green 25mg Inj INJ ONE; +Pred Forte 1% Opth Susp 1ml RIGHT EYE SCH; +ZOFRAN4 MG ORAL
[2018-12-31] MEDS ORDERED: EPINEPHrine 1mg/1ml Amp ONE (07:05)
[2018-12-31] MEDS ORDERED: Lidocaine 2% MPF 5ml Vial INJ ONE (07:06)
[2018-12-31] MEDS ORDERED: Pred Forte 1% Opth Susp 1ml ONE (07:06)
[2018-12-31] MEDS ORDERED: Kenalog-40 1ml Vial ONE (07:06)
[2018-12-31] MEDS ORDERED: Maxitrol Opth Oint 3.5gm ONE (07:06)
[2018-12-31] MEDS ORDERED: Kenalog-10 5ml Inj ONE (07:06)
[2018-12-31] MEDS ORDERED: Dexamethasone 4mg/ml vial ONE (07:06)
[2018-12-31] MEDS ORDERED: BSS 15ml BTL ONE (07:07)
[2018-12-31] MEDS ORDERED: Bupivacaine 0.75% 30ml vial INJ ONE (07:07)
[2018-12-31] MEDS ORDERED: Tetracaine 0.5% Opth 4ml Soln ONE (07:07)
[2018-12-31] MEDS ORDERED: BSS 500ml btl ONE (07:07)
[2018-12-31] MEDS ORDERED: Sodium Hyaluronate 10 mg/ml 0.85ml ONE (07:08)
[2018-12-31] MEDS: Cyclopentolate 1% Opth Sol 2ml RIGHT EYE SCH ×3 (07:20→07:35)
[2018-12-31] MEDS: Vigamox Opth Soln 3ml RIGHT EYE SCH ×3 (07:20→07:35)
[2018-12-31] MEDS: Phenylephrine 2.5% Op 2ml Soln RIGHT EYE SCH ×3 (07:20→07:35)
[2018-12-31] MEDS: Flurbiprofen 0.03% Opth Sol 2.5ml RIGHT EYE SCH ×3 (07:20→07:35)
[2018-12-31] MEDS ORDERED: Propofol 200mg/20ml IV ONE (07:25)
[2018-12-31] MEDS ORDERED: Alfentanil 2ml Inj ONE (07:26)
[2018-12-31] MEDS ORDERED: Midazolam 2mg/2ml Inj ONE (07:26)
[2018-12-31] MEDS ORDERED: TIMOLOL MALEATE10 M1 BOTH EYES (07:28)
[2018-12-31] MEDS ORDERED: LATANOPROST 0.7.5 ML BOTH EYES (07:28)
[2018-12-31] MEDS ORDERED: TIZANIDINE HCL4 MG ORAL (07:28)
[2018-12-31] MEDS ORDERED: DIOVAN320 MG ORAL (07:28)
[2018-12-31] MEDS ORDERED: TENORMIN25 MG ORAL (07:28)
[2018-12-31] MEDS ORDERED: ZETIA10 MG ORAL (07:28)
[2018-12-31] MEDS ORDERED: NORCO 10/3251 EA ORAL (07:28)
[2018-12-31] MEDS ORDERED: AMLODIPINE BESY10 MG ORAL (07:28)
[2018-12-31] MEDS ORDERED: SERTRALINE HCL100 MG PO (07:28)
[2018-12-31] MEDS ORDERED: OMEPRAZOLE20 M2 ORAL (07:28)
--- NOTE | 2018-12-31 07:32 | Pre-Procedure Note/Attestation ---
Pre-Procedure Note/Attestation Complete Prior to Procedure Planned Procedure: right Procedure Narrative: PPV, ICG assisted membrane peel, endolaser, possible gas injection Right eye Indications for Procedure Pre-Operative Diagnosis: Macular pucker Right eye, Branch Retinal vein occlusion Right eye Attestation I attest that I discussed the nature of the procedure; its benefits; risks and complications; and alternatives (and the risks and benefits of such alternatives ), prior to the procedure, with the patient (or the patient's legal employee relations representative). I attest that, if there was a reasonable possibility of needing a blood transfusion, the patient (or the patient's legal employee relations representative) was given the [place] Department of Health Services standardized written summary, pursuant to the Ariel Selena Blood Safety Act ([place] Health and Safety Code # 1645, as amended). I attest that I re-evaluated the patient just prior to the surgery and that there has been no change in the patient's H&P, except as documented below: Fredo Sidhu MD Dec 31, 2018 07:32
[2018-12-31] MEDS ORDERED: Povidone-Iodine 5% opth solution ONE (07:33)
[2018-12-31] MEDS ORDERED: Norco 5mg/325mg tab ORAL PRN ×2 (07:45→08:00)
[2018-12-31] MEDS ORDERED: LR 1000ml 1,000 ML IVLG SCH (07:46)
--- NOTE | 2018-12-31 07:47 | Anethesia Preoperative Eval ---
Anesthesia Pre-op PMH/ROS General Date of Evaluation: Dec 31, 2018 Time of Evaluation: 07:42 Anesthesiologist: Benjamin ASA Score: ASA 3 Mallampati Score Class I : Soft palate, uvula, fauces, pillars visible Class II: Soft palate, uvula, fauces visible Class III: Soft palate, base of uvula visible Class IV: Only hard plate visible Mallampati Classification: Class II Surgeon: Thea Diagnosis: Macular Pucker OD Surgical Procedure: Cat Ext IOL OD Anesthesia History: none Family History: no anesthesia problems Allergies: Coded Allergies: No Known Allergies (Unverified , 12/30/18) Medications: see eMAR Patient NPO?: Yes Past Medical History Cardiovascular: Reports: HTN, other - HL Gastrointestinal/Genitourinary: Reports: GERD Neurologic/Psychiatric: Reports: depression/anxiety HEENT: Reports: cataract (L) PSxH Narrative: L Wrist SX, L Cat Ext IOL OS Anesthesia Pre-op Phys. Exam Physician Exam Last Vital Signs Date Time Temp Pulse Resp B/P (MAP) Pulse Ox O2 Delivery O2 Flow Rate FiO2 12/31/18 07:30 Room Air 12/31/18 07:23 98.9 66 18 122/72 99 Constitutional: NAD Neurologic: CN 2-12 intact Cardiovascular: RRR Respiratory: CTA Gastrointestinal: S/NT/ND Airway Exam Mallampati Score: Class II MO: limited ROM: limited Teeth: missing Dentures: upper Anesthesia Pre-op A/P Risk Assessment & Plan Assessment: ASA 3 Plan: GA Status Change Before Surgery: No Jere Alexander MD Dec 31, 2018 07:47
--- NOTE | 2018-12-31 07:57 | Immediate Post-Op Evaluation ---
Immediate Post-Op Evalulation Immediate Post-Op Evalulation Procedure: Cat Ext IOL OD Date of Evaluation: Dec 31, 2018 Time of Evaluation: 09:04 IV Fluids: 600 LR Blood Products: 0 Estimated Blood Loss: 1 Urinary Output: 0 Blood Pressure Systolic: 131 Blood Pressure Diastolic: 73 Pulse Rate: 69 Respiratory Rate: 16 O2 Sat by Pulse Oximetry: 93 Temperature (Fahrenheit): 97.6 Pain Score (1-10): 1 Nausea: No Vomiting: No Complications 0 Patient Status: awake, reacts, patent, none Hydration Status: adequate Jere Alexander MD Dec 31, 2018 07:57
--- NOTE | 2018-12-31 07:57 | 48 Hour Post Anesthesia Eval ---
Post Anesthesia Evaluation Procedure: Cat Ext IOL OD Date of Evaluation: Dec 31, 2018 Time of Evaluation: 11:12 Blood Pressure Systolic: 134 0: 72 Pulse Rate: 68 Respiratory Rate: 18 Temperature (Fahrenheit): 98.2 O2 Sat by Pulse Oximetry: 98 Airway: patent Nausea: No Vomiting: No Pain Intensity: 1 Hydration Status: adequate Cardiopulmonary Status: Stable Mental Status/LOC: patient returned to baseline Follow-up Care/Observations: 0 Post-Anesthesia Complications: 0 Follow-up care needed: ready to discharge Jere Alexander MD Dec 31, 2018 07:57
[2018-12-31] MEDS ORDERED: Sterile Water Irrig 1000ml IRRIG ONE (08:00)
[2018-12-31] MEDS ORDERED: fentaNYL 100 mcg/2 mL IV PRN (08:00)
[2018-12-31] MEDS ORDERED: LR 1000ml ONE (08:00)
[2018-12-31] MEDS ORDERED: Metoclopramide 10mg/2ml Inj IVP PRN (08:00)
[2018-12-31] MEDS ORDERED: Hydromorphone 0.5mg/0.5ml inj IVP PRN (08:00)
[2018-12-31] MEDS ORDERED: NS Irrig 1000ml ONE (08:00)
[2018-12-31] MEDS ORDERED: LORazepam Inj 2mg/ml 1ml IV PRN (08:00)
[2018-12-31] MEDS ORDERED: Meperidine 50mg/ml Inj(FOR RIGORS ONLY) IVP PRN (08:00)
[2018-12-31] MEDS ORDERED: DiphenhydrAMINE 50mg/ml Inj IVP PRN (08:00)
[2018-12-31] MEDS ORDERED: HYDROcodone/Acetamin 7.5/325 tab ORAL PRN (08:00)
[2018-12-31] MEDS ORDERED: Atropine Sulfate 0.4mg/ml inj IVP PRN (08:00)
[2018-12-31] MEDS ORDERED: oxyCODONE HCL/Acetaminophen 5/325mg ORAL PRN (08:00)
[2018-12-31] MEDS ORDERED: Lidocaine 1% MPF 10mg/ml 5ml ONE (08:00)
[2018-12-31] MEDS ORDERED: Midazolam 2mg/2ml Inj IVP PRN (08:00)
--- NOTE | 2018-12-31 09:00 | Pre-op HX & Phy Repo 2 SIG ---
DATE OF ADMISSION: 12/30/2018 PREOPERATIVE HISTORY AND PHYSICAL DATE OF SURGERY: 12/31/2018 PREOPERATIVE DIAGNOSIS: Macular pucker, right eye. BRIEF NOTE: This is the first [facility] admission for this patient who is a very nice 73-year-old lady with a history of poor vision in the right eye associated with vein occlusion. The vein occlusion has been successfully stabilized but she has a dense epiretinal membrane on that side which is limiting vision and causing distortion. She was admitted for vitrectomy. PAST OCULAR HISTORY: Remarkable for cataract surgery done in both eyes in 2018. She has also been treated for glaucoma. PAST MEDICAL HISTORY: Remarkable for arthritis and hypertension. MEDICATIONS: She is maintained on Zetia 10 mg daily, amlodipine 10 mg, atenolol, omeprazole, and ondansetron. ALLERGIES: She has no known allergies. PHYSICAL EXAMINATION: Best vision at the time of admission was 20/80 in the right eye and 20/30 in the left with pressures of 20 and 16. The anterior segments were quiet with posterior chamber lens on the right. A nuclear cataract was seen on the left. Funduscopic exam of the right eye showed glaucomatous cupping. There was no branch retinal vein occlusion superotemporally that was well compensated. In addition a very dense epiretinal membrane with thickening of the retina was noted. The left fundus showed glaucomatous cupping and mild hypertensive change but was otherwise benign. General physical examination will be completed by Dr. Hardin. ASSESSMENT: Macular pucker status post venous occlusive disease, right eye. The plan is to perform a pars plana vitrectomy with ICG assisted membrane peeling on the right eye. The risks and benefits of surgery have been gone over with the patient with potential for infection, hemorrhage, glaucoma, retinal detachment, remote possibility of loss of the eye. The risk of anesthesia was discussed. The patient understands and consents to surgery to be performed on tomorrow morning. Fredo Sidhu M.D. DR: Ede JOB#: [id number] CC:
--- NOTE | 2018-12-31 09:05 | Brief Operative Note ---
Immediate Post Operative Note Operative Note Pre-op Diagnosis: Macular pucker Right eye, Branch Retinal vein occlusion Right eye Procedure: PPV, ICG assisted membrane peel, Endolaser 438 spots, Kenalog injection, gas- fluid exchange Right eye. Post-op Diagnosis: same as pre-op plus - Suspect partial thickness macular hole Surgeon: sofia Anesthesiologist: Luis Anesthesia: MAC Specimen: none Complications: none Condition: stable Fluids: per anesthesia Estimated Blood Loss: none Drains: none Implant(s) used?: No Fredo Sidhu MD Dec 31, 2018 09:05
--- NOTE | 2018-12-31 14:45 | Operative Note - Dictated ---
DATE OF OPERATION: 12/31/2018 PREOPERATIVE DIAGNOSIS: Dense epiretinal membrane with partial thickness macular hole, right eye. POSTOPERATIVE DIAGNOSIS: Dense epiretinal membrane with partial thickness macular hole, right eye. PROCEDURES: 1. Pars plana vitrectomy. 2. ICG-assisted membrane peel. 3. Endolaser. 4. Kenalog injection. 5. Gas fluid exchange, right eye. SURGEON: Fredo Sidhu M.D. NETWORK OPERATIONS ANALYST: None. ANESTHESIA: Local sedation. JUSTIFICATION FOR SURGERY: This 73-year-old lady developed a branch retinal vein occlusion sometime ago, which was treated with Avastin and laser. She developed dense epiretinal membrane with distortion of the macula. She was admitted for peeling. BRIEF NOTE: The patient was brought to the operating room, placed on the OR table in supine position. After a time-out was performed and agreed upon by the staff, and general monitoring was done by Dr. Alexander. Retrobulbar and Van Lint blocks were given in the standard way. When the blocks taken effect, she was prepped and draped in normal manner. A lid speculum was inserted into the right eye. Using a 23-gauge trocar system, cannulas were placed in all except infranasal quadrant. Infusion was secured inferotemporally. Vitrectomy was begun posterior to the lens implant. A central core vitrectomy was done followed by peripheral vitrectomy leaving a small vitreous skirt. Kenalog was used to aid in visualization of the vitreous. A posterior viewing lens was then inserted and attention paid to the macula. ICG, 1 drop was used to stain the posterior pole and ILM. This went without difficulty. Using ILM forceps, the superficial membrane was engaged and lifted from the retina followed by engagement of the internal limiting lamina, which was gently removed in a circular pattern roughly 2.5 disc diameters in size. The macula was noted to be unencumbered at this point. The posterior lens was removed and the wide-angle viewing system repositioned. Vitrectomy was continued removing membrane debris and leaving an even small vitreous skirt. Scleral depression was done. No peripheral breaks, tears, or detachments were seen. Endolaser was brought to the eye and a power of 0.3 schaefer, duration 0.2 seconds, a total of 438 lesions were applied in the bed of the vein occlusion where there was light treatment. No problems were encountered. An air-fluid exchange was then performed followed by gas-gas exchange of 24% SF6. The eye was left normotensive and each sclerotomy was closed with a single stitch of 8-0 Vicryl with the knots buried. Subconjunctival Decadron and gentamicin were then injected and topical moxifloxacin drops, prednisolone drops, and Maxitrol ointments were instilled. The eye was patched and shielded. The patient was taken to recovery in excellent condition. There were no complications. Fredo Sidhu M.D. DR: OMID JOB#: [id number] CC:
== END 2018-12-31 10:30 | disposition home or self-care (01) ==
LOC: SUR 06:59 → MERGE 06:59 → SUR 10:30
DX: H35.371 Puckering of macula, right eye (principal); H35.341 Macular cyst, hole, or pseudohole, right eye; M15.9 Polyosteoarthritis, unspecified; I10 Essential (primary) hypertension; E78.5 Hyperlipidemia, unspecified; K21.9 Gastro-esophageal reflux disease without esophagitis; M81.0 Age-related osteoporosis without current pathological fracture; F32.9 Major depressive disorder, single episode, unspecified; R42 Dizziness and giddiness; Z90.49 Acquired absence of other specified parts of digestive tract
CPT/HCPCS: 67042; J0171; J1100; J2250; J2704; J3301; J3470; J3490; 94003; 94150

== ENCOUNTER 2019-07-15 14:36 | Inpatient (IN) | payer MEDICARE, OTHER ==
[~2019-07-15] VITALS: Ht 152.4 cm; Wt 74.8 kg
[~2019-07-15 14:36] MED LIST changes: +AMLODIPINE BESY10 MG ORAL; +DIOVAN320 MG ORAL; -Indocyanine Green 25mg Inj INJ ONE; +LATANOPROST 0.7.5 ML BOTH EYES; +OMEPRAZOLE20 M2 ORAL; -Pred Forte 1% Opth Susp 1ml RIGHT EYE SCH; +TIMOLOL MALEATE10 M1 BOTH EYES; +TIZANIDINE HCL4 MG ORAL; +ZETIA10 MG ORAL
--- NOTE | 2019-07-15 14:46 | NUR ---
ED Nurse Note: Patient walked in with family member from home due to generalized body pain, fever x 2 days and wheezing. Spo2 89 and afebrile 98.2 at the ER. Patient is alert and oriented x4, verbally reponsive. VS is stable. Family member at bedside.
[2019-07-15] MEDS ORDERED: Albuterol ud Inhalation HHN ONE (15:15)
[2019-07-15] MEDS ORDERED: Acetaminophen 500mg (ES) tab ORAL ONE (15:15)
[2019-07-15] MEDS ORDERED: Ipratropium 0.02% Inh Soln 2.5ml UD HHN ONE (15:15)
--- NOTE | 2019-07-15 15:31 | Emergency Room Report ---
History of Present Illness General Chief Complaint: Dyspnea/Respdistress Source: Patient Present Illness HPI 74-year-old female presents ED for evaluation. Complaining of body aches and weakness for the last 2 days. Also states that she is wheezing. States she has a cough which is productive with yellowish phlegm. States she has chills. Afebrile in triage. Denies chest pain or shortness of breath. Denies sick contacts or recent travel. No other aggravating relieving factors. Denies any other associated symptoms Allergies: Coded Allergies: No Known Allergies (Unverified , 05/21/18) Patient History Past Medical History: HTN Past Surgical History: none Pertinent Family History: none Social History: Denies: smoking, alcohol use, drug use Last Menstrual Period: menopause Now: No Immunizations: UTD Reviewed Nursing Documentation: PMH: Agreed; PSxH: Agreed Nursing Documentation-PMH Hx Cardiac Problems: Yes - ARTHRITIS Hx Hypertension: Yes Hx Cancer: No Hx Gastrointestinal Problems: No Hx Neurological Problems: No Review of Systems All Other Systems: negative except mentioned in HPI Physical Exam Vital Signs Date Time Temp Pulse Resp B/P (MAP) Pulse Ox O2 Delivery O2 Flow Rate FiO2 07/15/19 14:46 98.4 72 20 92/60 (71) 88 Room Air Sp02 EP Interpretation: reviewed, normal General Appearance: no apparent distress, alert, GCS 15, non-toxic Head: normocephalic, atraumatic Eyes: bilateral eye normal inspection, bilateral eye PERRL ENT: hearing grossly normal, normal pharynx, no angioedema, normal voice Neck: full range of motion, supple/symm/no masses Respiratory: chest non-tender, lungs clear, normal breath sounds, speaking full sentences Cardiovascular #1: regular rate, rhythm, no edema Cardiovascular #2: 2+ carotid (R), 2+ carotid (L), 2+ radial (R), 2+ radial (L) , 2+ dorsalis pedis (R), 2+ dorsalis pedis (L) Gastrointestinal: normal bowel sounds, non tender, soft, non-distended, no guarding, no rebound Rectal: deferred Genitourinary: normal inspection, no CVA tenderness Musculoskeletal: back normal, gait/station normal, normal range of motion, non- tender Neurologic: alert, oriented x3, responsive, motor strength/tone normal, sensory intact, speech normal Psychiatric: judgement/insight normal, memory normal, mood/affect normal, no suicidal/homicidal ideation Reflexes: 3+ bicep (R), 3+ bicep (L), 3+ tricep (R), 3+ tricep (L), 3+ knee (R) , 3+ knee (L) Skin: no rash Lymphatic: no adenopathy Medical Decision Making Diagnostic Impression: Primary Impression: CHF exacerbation Qualified Codes: I50.9 - Heart failure, unspecified ER Course Hospital Course 74-year-old female presents ED complaining of shortness of breath, wheezing Differential diagnoses include: SC/unstable angina, contusion, muscle strain, PTX, rib fracture Clinical course Patient placed on stretcher. on hall monitor. After initial history and physical I ordered labs, EKG, chest x-ray, nebs labs reviewed- no leukocytosis, hemoglobin/hematocrit stable, trop negative, BNP elevated EKG - NSR no acute ischemic changes interpreted by me Chest x-ray- widened cardiac silouette. no prior history of CHF. concern for dissection - ordering CTA CTA shows no evidence of PE or dissection Initially hypotensive improved with IV fluids. Case discussed with Dr. Hardin and he agreed to accept the patient to his service for further care and support I. I feel this is a highly complex case requiring extensive working including EKG/Rhythm strip, Xray/CT/US, Blood/urine lab work, repeat exams while in ED, and administration of strong opiates/narcotics for pain control, admission to hospital or close patient follow up. Diagnosis - CHF exacerbation admitted to telemetry in serious condition Labs Test 07/15/19 15:18 07/15/19 16:44 White Blood Count 10.6 K/UL (4.8-10.8) Red Blood Count 3.36 M/UL (4.20-5.40) Hemoglobin 10.1 G/DL (12.0-16.0) Hematocrit 29.7 % (37.0-47.0) Mean Corpuscular Volume 88 FL (80-99) Mean Corpuscular Hemoglobin 30.1 PG (27.0-31.0) Mean Corpuscular Hemoglobin Concent 34.1 G/DL (32.0-36.0) Red Cell Distribution Width 13.2 % (11.6-14.8) Platelet Count 161 K/UL (150-450) Mean Platelet Volume 6.4 FL (6.5-10.1) Neutrophils (%) (Auto) 71.4 % (45.0-75.0) Lymphocytes (%) (Auto) 17.2 % (20.0-45.0) Monocytes (%) (Auto) 5.3 % (1.0-10.0) Eosinophils (%) (Auto) 5.4 % (0.0-3.0) Basophils (%) (Auto) 0.7 % (0.0-2.0) Sodium Level 136 MMOL/L (136-145) Potassium Level 3.9 MMOL/L (3.5-5.1) Chloride Level 101 MMOL/L (98-107) Carbon Dioxide Level 27 MMOL/L (21-32) Anion Gap 8 mmol/L (5-15) Blood Urea Nitrogen 24 mg/dL (7-18) Creatinine 1.2 MG/DL (0.55-1.30) Estimat Glomerular Filtration Rate mL/min (>60) Glucose Level 133 MG/DL (74-106) Calcium Level 9.3 MG/DL (8.5-10.1) Total Bilirubin 0.7 MG/DL (0.2-1.0) Aspartate Amino Transf (AST/SGOT) 29 U/L (15-37) Alanine Aminotransferase (ALT/SGPT) 33 U/L (12-78) Alkaline Phosphatase 89 U/L (46-116) Troponin I 0.000 ng/mL (0.000-0.056) Pro-B-Type Natriuretic Peptide 1440 pg/mL (0-125) Total Protein 7.2 G/DL (6.4-8.2) Albumin 3.3 G/DL (3.4-5.0) Globulin 3.9 g/dL Albumin/Globulin Ratio 0.8 (1.0-2.7) EKG Diagnostic Results Rate: normal Rhythm: NSR ST Segments: no acute changes ASA given to the pt in ED: No Rhythm Strip Diag. Results EP Interpretation: yes Rhythm: NSR, no PVC's, no ectopy Chest X-Ray Diagnostic Results Chest X-Ray Diagnostic Results : Chest X-Ray Ordered: Yes # of Views/Limited/Complete: 1 View Indication: Shortness of Breath EP Interpretation: Yes Interpretation: no consolidation, no effusion, other - cardiac silouette widened Impression: Other - ?CHF Electronically Signed by: Electronically signed by Yon Ching MD CT/MRI/US Diagnostic Results CT/MRI/US Diagnostic Results : Imaging Test Ordered: CTA chest/abd/pelvis Impression IMPRESSION: No evidence of aortic dissection or aneurysm. Moderate atherosclerotic vascular disease demonstrated. Multiple additional incidental findings as described above The CT scanner at [facility] is accredited by the [employer] and the scans are performed using dose optimization techniques as appropriate to a performed exam including Automatic Exposure control. Last Vital Signs Date Time Temp Pulse Resp B/P (MAP) Pulse Ox O2 Delivery O2 Flow Rate FiO2 07/15/19 14:46 98.4 72 20 92/60 (71) 88 Room Air Status: improved Disposition: ADMITTED INPATIENT Condition: Serious Referrals: Aman Hardin MD (PCP) Yon Chnig MD Jul 15, 2019 15:31
[2019-07-15] MEDS ORDERED: OYSTER SHELL+D1 EACH PO (15:39)
[2019-07-15] MEDS ORDERED: VITAMIN D22000 UNIT PO (15:39)
[2019-07-15] MEDS ORDERED: CRESTOR20 MG ORAL (15:39)
[2019-07-15] MEDS ORDERED: VENTOLIN HFA18 GM INH (15:39)
[2019-07-15] MEDS ORDERED: ZYPREXA2.5 MG ORAL (15:39)
[2019-07-15] MEDS ORDERED: TIZANIDINE HCL4 MG ORAL (15:40)
[2019-07-15 15:43] VITALS: BP 100/58
[2019-07-15 15:45] LABS: ANION GAP 8 mmol/L (5-15); BLOOD UREA NITROGEN 24 mg/dL (7-18); CALCIUM 9.3 MG/DL (8.5-10.1); CARBON DIOXIDE 27 MMOL/L (21-32); CHLORIDE 101 MMOL/L (98-107); CREATININE 1.2 MG/DL (0.55-1.30); POTASSIUM 3.9 MMOL/L (3.5-5.1); SODIUM 136 MMOL/L (136-145)
[2019-07-15 15:56] LABS: ALANINE AMINOTRANSFERASE 33 U/L (12-78); ALBUMIN 3.3 G/DL (3.4-5.0); ALBUMIN/GLOBULIN RATIO 0.8 (1.0-2.7); ALKALINE PHOSPHATASE 89 U/L (46-116); ASPARTATE AMINO TRANSFERASE 29 U/L (15-37); BILIRUBIN,TOTAL 0.7 MG/DL (0.2-1.0)
[2019-07-15] MEDS ORDERED: Isovue-370 150ml vial INJ PRN (16:00)
[2019-07-15 16:02] LABS: BASOPHILS % (AUTO) 0.7 % (0.0-2.0); EOSINOPHILS % (AUTO) 5.4 % (0.0-3.0); HEMATOCRIT 29.7 % (37.0-47.0); HEMOGLOBIN 10.1 G/DL (12.0-16.0); LYMPHOCYTES % (AUTO) 17.2 % (20.0-45.0); MEAN CORPUSCULAR VOLUME 88 FL (80-99); MONOCYTES % (AUTO) 5.3 % (1.0-10.0); NEUTROPHILS % (AUTO) 71.4 % (45.0-75.0); PLATELET COUNT 161 K/UL (150-450); RED BLOOD COUNT 3.36 M/UL (4.20-5.40); RED CELL DISTRIBUTION WIDTH 13.2 % (11.6-14.8); WHITE BLOOD COUNT 10.6 K/UL (4.8-10.8)
--- NOTE | 2019-07-15 16:34 | Diagnostic Imaging Report ---
Indication: Dyspnea Comparison: 01/13/2018 A single view chest radiograph was obtained. Findings: Lung volumes are low. The right hemidiaphragm is slightly obscured. Heart size is probably normal accounting for the low lung volumes. Aorta is calcified and slightly enlarged. Bones are osteopenic. IMPRESSION: Question of a right basilar pathology such as a pleural effusion or pneumonia. Correlate clinically. Consider repeating the study with better lung volumes
--- NOTE | 2019-07-15 16:40 | Diagnostic Imaging Report ---
Indication: Chest and abdominal pain. Shortness of breath. Concern for aortic dissection Technique: Continuous helical transaxial imaging of the chest, abdomen and pelvis was obtained from the thoracic inlet to the pubic symphysis during rapid intravenous contrast administration. Arterial phase of enhancement obtained. Coronal 2-D reformats were also obtained and maximum intensity projection images in multiple planes. Study obtained in a Siemens sensation [address] Total Dose length Product (DLP): [address] Dose Index Volume (CTDIvol): 0.15, 8.11, 56.78, 15.27 mGy Comparison: None Findings: The thoracic and abdominal aorta demonstrates mural calcium but is normal in caliber without evidence of dissection or aneurysm. Heart is unremarkable. The major aortic arch vessels including the left subclavian artery, left common carotid artery and brachiocephalic artery appear widely patent. There is some calcific plaque at the origin of the left subclavian artery which does not appear significant hemodynamically. In terms of the abdominal aorta there is mild calcific plaque at the origins of the celiac artery and SMA. This does not appear significant. Mild calcific plaque at the origins of both renal arteries also demonstrated. The iliac arteries are unremarkable. Nonvascular findings include multiple coarse linear densities at the lung bases likely atelectasis or scarring. Large gallstone demonstrated. Cortical and parapelvic renal cysts are present bilaterally. There is a 6 cm cyst noted in the left kidney. Appendix is normal. Diverticula demonstrated in the colon. There is a small left inguinal hernia containing fat. There is no ascites. Bowel gas pattern is nonobstructive. The liver may be slightly fatty with diffuse low-attenuation. IMPRESSION: No evidence of aortic dissection or aneurysm. Moderate atherosclerotic vascular disease demonstrated. Multiple additional incidental findings as described above The CT scanner at [facility] is accredited by the [employer] and the scans are performed using dose optimization techniques as appropriate to a performed exam including Automatic Exposure control.
[2019-07-15 17:09] VITALS: BP 103/56
--- NOTE | 2019-07-15 17:20 | NUR ---
ED Nurse Note: [facility].
[2019-07-15 17:26] LABS: APPEARANCE,URINE CLEAR; BILIRUBIN, URINE NEGATIVE (NEGATIVE); COLOR,URINE PALE YELLOW; GLUCOSE, URINE (UA) NEGATIVE (NEGATIVE); KETONES,URINE NEGATIVE (NEGATIVE); LEUKOCYTE ESTERASE ,URINE NEGATIVE (NEGATIVE); NITRITE,URINE NEGATIVE (NEGATIVE); PH,URINE 5 (4.5-8.0); PROTEIN,URINE 2+ (NEGATIVE); UROBILINOGEN,URINE NORMAL MG/DL (0.0-1.0)
--- NOTE | 2019-07-15 17:45 | NUR ---
TRANSFER TO FLOOR: Patient transferred to Telemetry unit as ordered accompannied by 2 RNs. Belongings given to the patient. Family and or S/O informed of transfer.
--- NOTE | 2019-07-15 17:50 | NUR ---
NURSE NOTES: Patient transferred from ED, and received report from Rima/RN, Patient is awake and alert no sing of distress/ SOB noted at this time. Heart monitor in place, Belonging check done. IV site patent, no bleeding or infiltration noted. Personal belonging and call light within reach. Bed in lowest position and locked. Will continue plan of care.
--- NOTE | 2019-07-15 18:00 | NUR ---
NURSE NOTES: Admission Vital :-Temp-99.0, B/P -117/67, HR -88, RR - 23, O2 - 92%
--- NOTE | 2019-07-15 18:05 | NUR ---
NURSE NOTES: Called Dr. Hardin for Admission order and left message. Awaiting assistant golf professional back.
[2019-07-15] MEDS ORDERED: Milk of Magnesia 30ml Ud ORAL PRN (19:15)
--- NOTE | 2019-07-15 19:57 | NUR ---
NURSE NOTES: RECEIVED PATIENT RESTING IN BED. BEATER HEAD AT BEDSIDE AND ECHO TEST IN PROGRESS. FALL PRECAUTIONS IN PLACE: CALL LIGHT AND BEDSIDE TABLE WITHIN REACH. WILL CONTINUE WITH PLAN OF CARE.
--- NOTE | 2019-07-15 19:58 | NUR ---
HAND-OFF: Report given to Gabriela/RN, Patient is in stable condition, Endorsed plan of care.
[2019-07-15 20:00] VITALS: BP 95/64
[2019-07-15] MEDS: Heparin 5000 units/ml inj SUBQ SCH (21:27)
[2019-07-15] MEDS: Doxycycline Monohydrate 100mg ORAL SCH (21:27)
[2019-07-15] MEDS: cefTRIAXone 1 GM in D5W 55 ML IVPB SCH (22:05)
[2019-07-15] MEDS: HYDROcodone/Acetamin 10/325 tab ORAL PRN (22:14)
[2019-07-16] VITALS: BP 101/57
[2019-07-16 04:00] VITALS: BP 111/66
[2019-07-16] MEDS: HYDROcodone/Acetamin 10/325 tab ORAL PRN ×2 (04:52→11:13)
--- NOTE | 2019-07-16 05:30 | History and Physical Report ---
DATE OF ADMISSION: 07/15/2019 HISTORY: The patient is a 74-year-old female with a history of chronic back pain, arthritis, history of compression fractures of the spine, history of osteoporosis, history of hypertension, and hyperlipidemia who presented to the emergency room with complaints of fevers, chills, cough, dyspnea, and wheezing. She denies any chest pain. Denies any sore throat or headaches. No abdominal pain. No urinary symptoms. She admits to body aches. Denies any urinary symptoms. PAST MEDICAL HISTORY: Includes a history of chronic back pain, history of osteoporosis, history of compression fractures of the spine, history of hypertension, history of hyperlipidemia, history of depression, history of vertigo, history of right foot surgery in the past, history of thyroid surgery in the past, history of cholecystectomy many years ago, history of osteoarthritis, and history of right knee surgery in 2018. MEDICATIONS: Medications she is on, please see reconciled med list. ALLERGIES: She is allergic to Keflex. SOCIAL HISTORY: She does not smoke. Does not drink any alcohol. Does not use any drugs. She has supportive family. REVIEW OF SYSTEMS: A 12-point review of systems reviewed, negative except for above. FAMILY HISTORY: Noncontributory. PHYSICAL EXAMINATION: GENERAL: She is well developed, well nourished, currently in no apparent distress. VITAL SIGNS: Revealed blood pressure 103/56, pulse of 85, respirations 14, saturations on room air 100%. T-max 99.1. HEENT: Head is normocephalic and atraumatic. Pupils are equal, reactive to light. Extraocular muscles are intact. Eyes are anicteric. LUNGS: She does have end-expiratory wheezes. Few crackles at the bases. HEART: Regular rate and rhythm. ABDOMEN: Soft. Positive bowel sounds. EXTREMITIES: No clubbing, cyanosis, or edema. NEUROLOGIC: Nonfocal. LABORATORY DATA: White count 10.6, hemoglobin 10.1, hematocrit 29.7, and platelet count 161,000. Sodium 136, potassium 3.9, chloride 101, bicarbonate 27, BUN 24, creatinine 1.2, and glucose 133. Troponin is 0. ProBNP is 1440. Urinalysis with 2 to 4 RBCs, 2+ blood, 2+ protein. Chest x-ray reveals a question of right basilar pathology, such as effusion or pneumonia. ASSESSMENT AND PLAN: The patient is a 74-year-old female who presents to the emergency room with fevers, chills, cough, dyspnea, wheezing, noted to be in CHF. White count is normal. Blood culture is pending. We will empirically start her on Rocephin and doxycycline. We will order sputum studies including viral studies. She does appear to be in CHF. We will order a 2D echo. Placed her on monitored bed. We will have Dr. Garnett from Cardiology see her. She is also anemic. We will order stools for occult blood, iron panel, and ferritin. She should be on DVT and ulcer prophylaxis. Aman Hardin M.D. DR: Hieug JOB#: [id number] CC:
--- NOTE | 2019-07-16 07:16 | NUR ---
HAND-OFF: Report given to Omaira GARCIA RN. PATIENT ASLEEP, NO SIGNS OF DISTRESS NOTED.
[2019-07-16 07:24] LABS: BASOPHILS % (AUTO) 0.6 % (0.0-2.0); EOSINOPHILS % (AUTO) 5.3 % (0.0-3.0); HEMATOCRIT 27.9 % (37.0-47.0); HEMOGLOBIN 9.2 G/DL (12.0-16.0); LYMPHOCYTES % (AUTO) 16.4 % (20.0-45.0); MEAN CORPUSCULAR VOLUME 91 FL (80-99); MONOCYTES % (AUTO) 6.8 % (1.0-10.0); PLATELET COUNT 152 K/UL (150-450); RED BLOOD COUNT 3.09 M/UL (4.20-5.40); RED CELL DISTRIBUTION WIDTH 13.1 % (11.6-14.8); WHITE BLOOD COUNT 7.8 K/UL (4.8-10.8)
--- NOTE | 2019-07-16 07:25 | NUR ---
NURSE NOTES: Received report from Gabriela/RN, Patient is asleep, lying semi-bennett, resting comfortably, No sign of distress/SOB noted. IV site patent, no bleeding or infiltration noted. Bed in low position and locked. Call light and personal belonging within reach. Will continue plan of care.
[2019-07-16 07:40] LABS: ANION GAP 6 mmol/L (5-15); BLOOD UREA NITROGEN 14 mg/dL (7-18); CALCIUM 8.8 MG/DL (8.5-10.1); CARBON DIOXIDE 29 MMOL/L (21-32); CHLORIDE 104 MMOL/L (98-107); CHOLESTEROL 126 MG/DL (< 200); CREATININE 0.8 MG/DL (0.55-1.30); HDL CHOLESTEROL 48 MG/DL (40-60); POTASSIUM 3.4 MMOL/L (3.5-5.1); SODIUM 138 MMOL/L (136-145); TRIGLYCERIDES 68 MG/DL (30-150)
[2019-07-16 07:51] LABS: % IRON SATURATION 10 % (15-50); IRON 35 ug/dL (50-175); TOTAL IRON BINDING CAPACITY 345 ug/dL (250-450)
[2019-07-16 08:00] VITALS: BP 112/55
--- NOTE | 2019-07-16 09:05 | NUR ---
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 Chest/Abdomen/Pelvis CTA: Moderate atherosclerotic vascular disease demonstrate IS: Proventil 5mg HHN Atrovent 500mcg HHN NS 1000ml IV Tylenol 500mg Oral Admitted to Telemetry Telemetry status DCP: Pending Hospital Stay
[2019-07-16] MEDS: Docusate 100mg cap ORAL SCH ×2 (09:21→17:20)
[2019-07-16] MEDS: Atenolol 25mg tab ORAL SCH (09:21)
[2019-07-16] MEDS: Sertraline 100mg tab ORAL SCH (09:21)
[2019-07-16] MEDS: Doxycycline Monohydrate 100mg ORAL SCH ×2 (09:21→21:07)
[2019-07-16] MEDS: OLANZapine 2.5mg tab ORAL SCH (09:21)
[2019-07-16] MEDS: Timolol 0.5% Op Soln 2.5ml BOTH EYES SCH ×2 (09:21→17:20)
[2019-07-16] MEDS: Heparin 5000 units/ml inj SUBQ SCH ×2 (09:30→21:17)
--- NOTE | 2019-07-16 09:40 | Consultation ---
History of Present Illness General Date patient seen: Jul 16, 2019 Time patient seen: 09:36 Chief Complaint: Dyspnea/Respdistress Present Illness HPI The patient is a 74-year-old female with a history of chronic back pain, arthritis, history of compression fractures of the spine, history of osteoporosis, history of hypertension, and hyperlipidemia who presented to the emergency room with complaints of fevers, chills, cough, dyspnea, and wheezing. She denies any chest pain. Denies any sore throat or headaches. No abdominal pain. No urinary symptoms. She admits to body aches. Denies any urinary symptoms. Cardiology consulted for SOB/HTN/HLD management Echo pending Troponin negative Allergies: Coded Allergies: No Known Allergies (Unverified , 05/21/18) Medication History Scheduled Albuterol Sulfate (Ventolin Hfa), 2 PUFFS INH EVERY 6 HOURS, (Reported) Amlodipine Besylate* (Amlodipine Besylate*), 10 MG PO DAILY, (Reported) Amlodipine Besylate* (Amlodipine Besylate*), 10 MG ORAL DAILY, (Reported) Atenolol (Tenormin), 25 MG ORAL DAILY, (Reported) Atenolol (Tenormin), 25 MG ORAL DAILY, (Reported) Ezetimibe (Zetia*), 10 MG ORAL BEDTIME, (Reported) Latanoprost/Pf (Latanoprost 0.005% Eye Drop), 1 DROP BOTH EYES DA, (Reported) Olanzapine* (Zyprexa*), 2.5 MG ORAL DAILY, (Reported) Omeprazole (Omeprazole), 20 MG ORAL DAILY, (Reported) Pravastatin Sod (Pravastatin Sod), 80 MG PO DAILY, (Reported) Rosuvastatin Calcium* (Crestor*), 20 MG ORAL DAILY, (Reported) Sertraline Hcl* (Zoloft*), 100 MG PO DAILY, (Reported) Sertraline Hcl* (Zoloft*), 100 MG PO DAILY, (Reported) Timolol Maleate (Timolol Maleate), 1 DROP BOTH EYES BID, (Reported) Tizanidine Hcl* (Zanaflex*), 4 MG ORAL BEDTIME, (Reported) Tizanidine Hcl* (Zanaflex*), 4 MG ORAL THREE TIMES A DAY, (Reported) Valsartan (Diovan), 320 MG PO DAILY, (Reported) Valsartan (Diovan), 320 MG ORAL DAILY, (Reported) Scheduled PRN Hydrocodone/Acetaminophen (Hydrocodon-Acetaminophn 10-325), 1 TAB ORAL Q6H PRN for For Pain, (Reported) Ondansetron (Zofran), 4 MG ORAL Q6H PRN for Nausea & Vomiting Miscellaneous Medications Calcium Carbonate/Vitamin D3 ([place]yster [place]+D 250 Mg Tablet), 1 EACH PO, ( Reported) Ergocalciferol (Vitamin D2) (Vitamin D2), 50,000 UNIT PO, (Reported) Patient History Healthcare decision maker N Resuscitation status Advanced Directive on File Review of Systems Constitutional: Reports: no symptoms Eye: Reports: no symptoms ENT: Reports: no symptoms Respiratory: Reports: orthopnea, shortness of breath, SOTO Cardiovascular: Reports: chest pain Gastrointestinal: Reports: no symptoms Genitourinary: Reports: no symptoms Musculoskeletal: Reports: no symptoms Skin: Reports: no symptoms Psychiatric: Reports: no symptoms Neurological: Reports: no symptoms Endocrine: Reports: no symptoms Hematologic/Lymphatic: Reports: no symptoms Physical Exam General Appearance: no apparent distress, alert Lines, tubes and drains: peripheral HEENT: normocephalic, mucous membranes moist, PERRL Neck: non-tender, supple, normal inspection, abnormal alignment Respiratory/Chest: lungs clear, normal breath sounds, crackles/rales Cardiovascular/Chest: normal peripheral pulses, normal rate, regular rhythm Extremities: normal range of motion, non-tender, normal inspection 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 grossly normal, no motor/sensory deficits Last 24 Hour Vital Signs Date Time Temp Pulse Resp B/P (MAP) Pulse Ox O2 Delivery O2 Flow Rate FiO2 07/16/19 09:21 68 112/55 07/16/19 09:21 68 112/55 07/16/19 08:00 99.9 68 18 112/55 (74) 94 07/16/19 04:00 72 07/16/19 04:00 98.8 71 18 111/66 (81) 98 07/16/19 00:00 99.3 70 18 101/57 (72) 95 07/16/19 00:00 72 07/15/19 21:00 Room Air 07/15/19 20:00 99.1 78 18 95/64 (74) 95 07/15/19 20:00 78 07/15/19 18:16 Room Air 07/15/19 17:45 97.3 85 19 103/56 100 Room Air 07/15/19 17:09 97.1 85 14 103/56 100 Room Air 21 07/15/19 16:06 98.3 07/15/19 15:47 73 16 07/15/19 15:44 70 16 100 Room Air 21 07/15/19 15:43 98.3 73 16 100/58 100 Room Air 07/15/19 15:30 70 18 100 Room Air 21 07/15/19 15:30 70 18 100 Room Air 21 07/15/19 14:46 98.4 72 20 92/60 (71) 88 Room Air Intake and Output 07/15/19 07/16/19 19:00 07:00 Intake Total 1240 ml 175 ml Output Total 550 ml Balance 1240 ml -375 ml Intake Oral 240 ml 120 ml IV Total 1000 ml 55 ml Output Urine Total 550 ml # Voids 3 Laboratory Tests Test 07/15/19 15:18 07/15/19 16:44 07/16/19 05:40 White Blood Count 10.6 K/UL (4.8-10.8) 7.8 K/UL (4.8-10.8) Red Blood Count 3.36 M/UL (4.20-5.40) L 3.09 M/UL (4.20-5.40) L Hemoglobin 10.1 G/DL (12.0-16.0) L 9.2 G/DL (12.0-16.0) L Hematocrit 29.7 % (37.0-47.0) L 27.9 % (37.0-47.0) L Mean Corpuscular Volume 88 FL (80-99) 91 FL (80-99) Mean Corpuscular Hemoglobin 30.1 PG (27.0-31.0) 29.7 PG (27.0-31.0) Mean Corpuscular Hemoglobin Concent 34.1 G/DL (32.0-36.0) 32.8 G/DL (32.0-36.0) Red Cell Distribution Width 13.2 % (11.6-14.8) 13.1 % (11.6-14.8) Platelet Count 161 K/UL (150-450) 152 K/UL (150-450) Mean Platelet Volume 6.4 FL (6.5-10.1) L 7.1 FL (6.5-10.1) Neutrophils (%) (Auto) 71.4 % (45.0-75.0) 71.0 % (45.0-75.0) Lymphocytes (%) (Auto) 17.2 % (20.0-45.0) L 16.4 % (20.0-45.0) L Monocytes (%) (Auto) 5.3 % (1.0-10.0) 6.8 % (1.0-10.0) Eosinophils (%) (Auto) 5.4 % (0.0-3.0) H 5.3 % (0.0-3.0) H Basophils (%) (Auto) 0.7 % (0.0-2.0) 0.6 % (0.0-2.0) Sodium Level 136 MMOL/L (136-145) 138 MMOL/L (136-145) Potassium Level 3.9 MMOL/L (3.5-5.1) 3.4 MMOL/L (3.5-5.1) L Chloride Level 101 MMOL/L (98-107) 104 MMOL/L (98-107) Carbon Dioxide Level 27 MMOL/L (21-32) 29 MMOL/L (21-32) Anion Gap 8 mmol/L (5-15) 6 mmol/L (5-15) Blood Urea Nitrogen 24 mg/dL (7-18) H 14 mg/dL (7-18) Creatinine 1.2 MG/DL (0.55-1.30) 0.8 MG/DL (0.55-1.30) Estimat Glomerular Filtration Rate mL/min (>60) mL/min (>60) Glucose Level 133 MG/DL (74-106) H 98 MG/DL (74-106) Calcium Level 9.3 MG/DL (8.5-10.1) 8.8 MG/DL (8.5-10.1) Total Bilirubin 0.7 MG/DL (0.2-1.0) Aspartate Amino Transf (AST/SGOT) 29 U/L (15-37) Alanine Aminotransferase (ALT/SGPT) 33 U/L (12-78) Alkaline Phosphatase 89 U/L (46-116) Troponin I 0.000 ng/mL (0.000-0.056) 0.000 ng/mL (0.000-0.056) Pro-B-Type Natriuretic Peptide 1440 pg/mL (0-125) H 1079 pg/mL (0-125) H Total Protein 7.2 G/DL (6.4-8.2) Albumin 3.3 G/DL (3.4-5.0) L Globulin 3.9 g/dL Albumin/Globulin Ratio 0.8 (1.0-2.7) L Urine Color Pale yellow Urine Appearance Clear Urine pH 5 (4.5-8.0) Urine Specific [place] 1.010 (1.005-1.035) Urine Protein 2+ (NEGATIVE) H Urine Glucose (UA) Negative (NEGATIVE) Urine Ketones Negative (NEGATIVE) Urine Blood 2+ (NEGATIVE) H Urine Nitrite Negative (NEGATIVE) Urine Bilirubin Negative (NEGATIVE) Urine Urobilinogen Normal MG/DL (0.0-1.0) Urine Leukocyte Esterase Negative (NEGATIVE) Urine RBC 2-4 /HPF (0 - 2) H Urine WBC 0-2 /HPF (0 - 2) Urine Squamous Epithelial Cells Few /LPF (NONE/OCC) Urine Bacteria Few /HPF (NONE) Hemoglobin A1c 5.5 % (4.3-6.0) Iron Level 35 ug/dL (50-175) L Total Iron Binding Capacity 345 ug/dL (250-450) Percent Iron Saturation 10 % (15-50) L Unsaturated Iron Binding 310 ug/dL (112-346) Ferritin 40 NG/ML (8-388) Triglycerides Level 68 MG/DL (30-150) Cholesterol Level 126 MG/DL (< 200) LDL Cholesterol 64 mg/dL (<100) HDL Cholesterol 48 MG/DL (40-60) Cholesterol/HDL Ratio 2.6 (3.3-4.4) L Vitamin B12 Level 1779 PG/ML (193-986) H Folate 10.3 NG/ML (8.6-58.9) Thyroid Stimulating Hormone (TSH) 0.908 uiU/mL (0.358-3.740) Height (Feet): 5 Height (Inches): 0.00 Weight (Pounds): 148 Medications Current Medications Medications (Trade) Dose Ordered Sig/Ethan Route PRN Reason Start Time Stop Time Status Last Admin Dose Admin Acetaminophen (Tylenol) 650 mg Q6H PRN ORAL Mild Pain/Temp > 100.5 07/15/19 19:15 08/14/19 19:14 Acetaminophen/ Hydrocodone Bitart ([place] 10/325) 1 tab Q6H PRN ORAL For Pain 4-10 07/15/19 19:15 07/22/19 19:14 07/16/19 04:52 Al Hydroxide/Mg Hydroxide (Mylanta) 30 ml BIDPRN PRN ORAL Abdominal cramps 07/15/19 21:00 08/14/19 20:59 Amlodipine Besylate (Norvasc) 10 mg DAILY ORAL 07/16/19 09:00 08/15/19 08:59 07/16/19 09:21 Atenolol (Tenormin) 25 mg DAILY ORAL 07/16/19 09:00 08/15/19 08:59 07/16/19 09:21 Ceftriaxone Sodium 1 gm/ Dextrose 55 ml @ 110 mls/hr Q24H IVPB 07/15/19 22:00 07/22/19 21:59 07/15/19 22:05 Docusate Sodium (Colace) 100 mg TWICE A DAY ORAL 07/16/19 09:00 08/15/19 08:59 07/16/19 09:21 Doxycycline Monohydrate (Doxycycline Monohydrate) 100 mg EVERY 12 HOURS ORAL 07/15/19 21:00 07/22/19 20:59 07/16/19 09:21 EZETIMIBE (Zetia) 10 mg BEDTIME ORAL 07/15/19 21:00 08/14/19 20:59 07/15/19 21:26 Heparin Sodium (Porcine) (Heparin 5000 units/ml) 5,000 units EVERY 12 HOURS SUBQ 07/15/19 21:00 08/14/19 20:59 07/16/19 09:30 Iopamidol (Isovue-370 150ml) 150 ml NOW PRN INJ Radiology Procedure 07/15/19 16:00 07/17/19 15:59 Magnesium Hydroxide (Mom) 30 ml BEDTIME PRN ORAL Constipation 07/15/19 19:15 08/14/19 19:14 Olanzapine (ZyPREXA) 2.5 mg DAILY ORAL 07/16/19 09:00 08/15/19 08:59 07/16/19 09:21 Ondansetron HCl (Zofran) 4 mg Q6H PRN ORAL Nausea & Vomiting 07/15/19 19:15 08/14/19 19:14 Pravastatin Sodium (Pravachol) 80 mg QHS ORAL 07/15/19 21:00 08/14/19 20:59 07/15/19 21:25 Sertraline HCl (Zoloft) 100 mg DAILY ORAL 07/16/19 09:00 08/15/19 08:59 07/16/19 09:21 Timolol Maleate (Timoptic 0.5% Op Soln) 1 drop BID BOTH EYES 07/16/19 09:00 08/15/19 08:59 07/16/19 09:21 Tizanidine HCl (Zanaflex) 4 mg BEDTIME ORAL 07/15/19 21:00 08/14/19 20:59 07/15/19 21:26 Assessment/Plan Status: stable Assessment/Plan: Assessment: HTN HLD SOB CHF Plan: Echocardiogram, BNP elevated CXR pleural effusion CTA with aortic atherosclerosis Serial EKG/Troponin - negative Outpatient stress test Mild diuresis as tolerated Maintain blood pressure medications Kosta Lawson MD Jul 16, 2019 09:39
[2019-07-16 12:00] VITALS: BP 117/78
[2019-07-16 16:00] VITALS: BP 122/70
[2019-07-16 20:00] VITALS: BP 116/58
--- NOTE | 2019-07-16 20:08 | NUR ---
NURSE NOTES: Received pt from CLARENCE Hutchinson. Pt awake, alert, and talkative. Bed in lowest position. Call light within reach. Will continue to monitor.
--- NOTE | 2019-07-16 20:13 | NUR ---
HAND-OFF: Report given to Jaycee/RN, Patient is in stable condition. Endorsed plan of care.
[2019-07-16] MEDS: cefTRIAXone 1 GM in D5W 55 ML IVPB SCH (21:11)
--- NOTE | 2019-07-16 22:16 | General Progress Note ---
Assessment/Plan Status: stable Assessment/Plan: fever cough chf chronic back pain anemia diabetes abx per ID fup culture reutls pulmonay hygine diuresis cards fup check 2decho start venofer check stool ob PT ambulate dvt and ulcer rpohylaxis Subjective Allergies: Coded Allergies: No Known Allergies (Unverified , 05/21/18) Subjective co fever wheezing some body aches no chest pain Objective Last 24 Hour Vital Signs Date Time Temp Pulse Resp B/P (MAP) Pulse Ox O2 Delivery O2 Flow Rate FiO2 07/16/19 20:00 98.3 63 18 116/58 (77) 97 07/16/19 16:00 66 07/16/19 16:00 98.7 67 18 122/70 (87) 99 07/16/19 12:00 96.6 66 18 117/78 (91) 100 07/16/19 12:00 61 07/16/19 09:21 68 112/55 07/16/19 09:21 68 112/55 07/16/19 09:00 Room Air 07/16/19 08:00 86 07/16/19 08:00 99.9 68 18 112/55 (74) 94 07/16/19 04:00 72 07/16/19 04:00 98.8 71 18 111/66 (81) 98 07/16/19 00:00 99.3 70 18 101/57 (72) 95 07/16/19 00:00 72 Intake and Output 07/15/19 07/16/19 19:00 07:00 Intake Total 1240 ml 175 ml Output Total 550 ml Balance 1240 ml -375 ml Intake Oral 240 ml 120 ml IV Total 1000 ml 55 ml Output Urine Total 550 ml # Voids 3 Laboratory Tests 07/16/19 05:40: White Blood Count 7.8, Red Blood Count 3.09L, Hemoglobin 9.2L, Hematocrit 27.9L , Mean Corpuscular Volume 91, Mean Corpuscular Hemoglobin 29.7, Mean Corpuscular Hemoglobin Concent 32.8, Red Cell Distribution Width 13.1, Platelet Count 152, Mean Platelet Volume 7.1, Neutrophils (%) (Auto) 71.0, Lymphocytes (% ) (Auto) 16.4L, Monocytes (%) (Auto) 6.8, Eosinophils (%) (Auto) 5.3H, Basophils (%) (Auto) 0.6, Sodium Level 138, Potassium Level 3.4L, Chloride Level 104, Carbon Dioxide Level 29, Anion Gap 6, Blood Urea Nitrogen 14, Creatinine 0.8, Estimat Glomerular Filtration Rate , Glucose Level 98, Hemoglobin A1c 5.5, Calcium Level 8.8, Iron Level 35L, Total Iron Binding Capacity 345, Percent Iron Saturation 10L, Unsaturated Iron Binding 310, Ferritin 40, Troponin I 0.000, Pro-B-Type Natriuretic Peptide 1079H, Triglycerides Level 68, Cholesterol Level 126, LDL Cholesterol 64, HDL Cholesterol 48, Cholesterol/HDL Ratio 2.6L, Vitamin B12 Level 1779H, Folate 10.3 , Thyroid Stimulating Hormone (TSH) 0.908 Height (Feet): 5 Height (Inches): 0.00 Weight (Pounds): 148 General Appearance: WD/WN, no apparent distress Neck: supple Cardiovascular: normal rate Respiratory/Chest: lungs clear Abdomen: soft 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
[2019-07-17] VITALS: BP 120/63
--- NOTE | 2019-07-17 01:15 | Consultation ---
DATE OF CONSULTATION: 07/16/2019 INFECTIOUS DISEASE CONSULTATION CONSULTING PHYSICIAN: Jonh Joel M.D. PRIMARY ATTENDING PHYSICIAN: Aman Hardin M.D. REASON FOR CONSULT: Bronchitis. HISTORY OF PRESENT ILLNESS: This is a 74-year-old female admitted yesterday from home complaining of body aches, weakness, wheezing, productive cough, and subjective fever. PAST MEDICAL HISTORY: Significant for hypertension, arthritis, chronic back pain, spinal compression fracture, hyperlipidemia, history of thyroid surgery, and history of right knee surgery. ALLERGIES: No known drug allergy. MEDICATIONS: Amlodipine, atenolol, olanzapine, sertraline,Doxycycline, ceftriaxone, pravastatin, tizanidine, magnesium hydroxide. SOCIAL HISTORY: No history of alcohol, drug abuse, or smoking. . REVIEW OF SYSTEMS: Subjective fever. No chest pain or wheezing. No significant coughing today. No nausea. No vomiting. No problem passing urine. PHYSICAL EXAMINATION: VITAL SIGNS: Temperature is 96.6, T-max is 99.9, pulse 66, respirations 17, and blood pressure 170/78. GENERAL APPEARANCE: No acute distress. Well developed. HEAD AND NECK: [place] conjunctivae. Has no teeth. HEART: Normal rate. LUNGS: Seems to be clear. ABDOMEN: Soft and nontender. EXTREMITIES: No edema. NEUROLOGIC: Awake, alert, and oriented x3. LABORATORY AND DIAGNOSTIC DATA: WBC 11.8, hemoglobin 9.2, hematocrit 27.9, and platelets 152,000. Sodium 138, potassium 3.4, chloride 104, bicarb 29, BUN 13, creatinine 0.8, and glucose 98. BNP was 1079. CT scan of the chest, abdomen and pelvis was done, no artery dissection or aneurysm. Incidental finding including slightly fatty liver, diverticulosis of colon, large gallstone, atelectasis or scarring in the base of lung. IMPRESSION: 1. Bronchitis. 2. Hypertension. 3. Arthritis. 4. Anemia. 5. Diastolic congestive heart failure. 6. Low back pain. 7. Spinal compression fracture. 8. Hyperlipidemia. RECOMMENDATION: 1. Continue ceftriaxone and doxycycline. 2. We will follow up the culture. At the end of my exam, I thank Dr. Hardin for involving me in the care of this patient. Jonh Joel M.D. DR: BRUNA JOB#: [id number] CC: ALEX
[2019-07-17 03:47] VITALS: BP 132/74
[2019-07-17] MEDS: HYDROcodone/Acetamin 10/325 tab ORAL PRN ×2 (04:09→16:37)
[2019-07-17 07:04] LABS: BASOPHILS % (AUTO) 0.9 % (0.0-2.0); EOSINOPHILS % (AUTO) 12.3 % (0.0-3.0); HEMATOCRIT 32.1 % (37.0-47.0); HEMOGLOBIN 10.5 G/DL (12.0-16.0); LYMPHOCYTES % (AUTO) 20.7 % (20.0-45.0); MEAN CORPUSCULAR VOLUME 90 FL (80-99); MONOCYTES % (AUTO) 6.4 % (1.0-10.0); NEUTROPHILS % (AUTO) 59.8 % (45.0-75.0); PLATELET COUNT 180 K/UL (150-450); RED BLOOD COUNT 3.58 M/UL (4.20-5.40); RED CELL DISTRIBUTION WIDTH 12.9 % (11.6-14.8); WHITE BLOOD COUNT 7.5 K/UL (4.8-10.8)
[2019-07-17 07:20] LABS: ANION GAP 7 mmol/L (5-15); BLOOD UREA NITROGEN 10 mg/dL (7-18); CALCIUM 9.4 MG/DL (8.5-10.1); CARBON DIOXIDE 28 MMOL/L (21-32); CHLORIDE 106 MMOL/L (98-107); CREATININE 0.6 MG/DL (0.55-1.30); POTASSIUM 3.8 MMOL/L (3.5-5.1); SODIUM 141 MMOL/L (136-145)
--- NOTE | 2019-07-17 07:23 | NUR ---
NURSE NOTES: Received report from Lola Champion. Pt is laying in bed. No distress noted. Bed is in lowest position, side rails up X2, and call light is within reach. Will continue to monitor.
--- NOTE | 2019-07-17 07:24 | NUR ---
HAND-OFF: Report given to CLARENCE Serna. Pt stable.
[2019-07-17 08:00] VITALS: BP 111/64
[2019-07-17] MEDS: Doxycycline Monohydrate 100mg ORAL SCH ×2 (08:46→20:42)
[2019-07-17] MEDS: OLANZapine 2.5mg tab ORAL SCH (08:46)
[2019-07-17] MEDS: Timolol 0.5% Op Soln 2.5ml BOTH EYES SCH ×2 (08:47→17:27)
[2019-07-17] MEDS: Docusate 100mg cap ORAL SCH ×2 (08:47→17:28)
[2019-07-17] MEDS: Atenolol 25mg tab ORAL SCH (08:47)
[2019-07-17] MEDS: Sertraline 100mg tab ORAL SCH (08:47)
[2019-07-17] MEDS: Heparin 5000 units/ml inj SUBQ SCH ×2 (08:49→20:44)
[2019-07-17] MEDS ORDERED: Iron Sucrose 100 MG in NS 55 ML IV SCH ×2 (09:00→21:00)
[2019-07-17] MEDS ORDERED: Tubing IV Secondary IV ONE (09:04)
[2019-07-17] MEDS ORDERED: NS 275ml ONE (09:04)
--- NOTE | 2019-07-17 09:48 | Infectious Diseases Prog Note ---
Assessment/Plan Assessment/Plan IMPRESSION: 1. Bronchitis. 2. Hypertension. 3. Arthritis. 4. Anemia. 5. Diastolic congestive heart failure. 6. Low back pain. 7. Spinal compression fracture. 8. Hyperlipidemia. RECOMMENDATION: 1. Continue ceftriaxone and doxycycline. 2. case was D/W Dr. Hardin Subjective ROS Limited/Unobtainable: No Constitutional: Reports: other - feels cold Respiratory: Reports: no symptoms Cardiovascular: Reports: no symptoms Gastrointestinal/Abdominal: Reports: no symptoms Genitourinary: Reports: no symptoms Allergies: Coded Allergies: No Known Allergies (Unverified , 05/21/18) Objective Vital Signs Last 24 Hour Vital Signs Date Time Temp Pulse Resp B/P (MAP) Pulse Ox O2 Delivery O2 Flow Rate FiO2 07/17/19 09:00 Room Air 07/17/19 08:47 76 111/64 07/17/19 08:46 76 111/64 07/17/19 08:00 74 07/17/19 08:00 97.7 76 18 111/64 (80) 97 07/17/19 04:00 67 07/17/19 03:47 97.4 59 19 132/74 (93) 96 07/17/19 00:00 54 07/17/19 00:00 96.6 65 18 120/63 (82) 97 07/16/19 21:00 Room Air 07/16/19 20:00 60 07/16/19 20:00 98.3 63 18 116/58 (77) 97 07/16/19 16:00 66 07/16/19 16:00 98.7 67 18 122/70 (87) 99 07/16/19 12:00 96.6 66 18 117/78 (91) 100 07/16/19 12:00 61 Height (Feet): 5 Height (Inches): 0.00 Weight (Pounds): 148 General Appearance: no acute distress HEENT: mucous membranes moist Cardiovascular: normal rate Abdomen: soft, non tender Extremities: no edema, other - arthritic changes, fingers & knees Neurologic/Psychiatric: alert, oriented x 3, responsive Laboratory Tests Test 07/17/19 05:43 White Blood Count 7.5 K/UL (4.8-10.8) Red Blood Count 3.58 M/UL (4.20-5.40) L Hemoglobin 10.5 G/DL (12.0-16.0) L Hematocrit 32.1 % (37.0-47.0) L Mean Corpuscular Volume 90 FL (80-99) Mean Corpuscular Hemoglobin 29.3 PG (27.0-31.0) Mean Corpuscular Hemoglobin Concent 32.7 G/DL (32.0-36.0) Red Cell Distribution Width 12.9 % (11.6-14.8) Platelet Count 180 K/UL (150-450) Mean Platelet Volume 7.4 FL (6.5-10.1) Neutrophils (%) (Auto) 59.8 % (45.0-75.0) Lymphocytes (%) (Auto) 20.7 % (20.0-45.0) Monocytes (%) (Auto) 6.4 % (1.0-10.0) Eosinophils (%) (Auto) 12.3 % (0.0-3.0) H Basophils (%) (Auto) 0.9 % (0.0-2.0) Sodium Level 141 MMOL/L (136-145) Potassium Level 3.8 MMOL/L (3.5-5.1) Chloride Level 106 MMOL/L (98-107) Carbon Dioxide Level 28 MMOL/L (21-32) Anion Gap 7 mmol/L (5-15) Blood Urea Nitrogen 10 mg/dL (7-18) Creatinine 0.6 MG/DL (0.55-1.30) Estimat Glomerular Filtration Rate mL/min (>60) Glucose Level 76 MG/DL (74-106) Calcium Level 9.4 MG/DL (8.5-10.1) Pro-B-Type Natriuretic Peptide 988 pg/mL (0-125) H Current Medications Medications (Trade) Dose Ordered Sig/Ethan Route PRN Reason Start Time Stop Time Status Last Admin Dose Admin Acetaminophen (Tylenol) 650 mg Q6H PRN ORAL Mild Pain/Temp > 100.5 07/15/19 19:15 08/14/19 19:14 07/16/19 15:35 Acetaminophen/ Hydrocodone Bitart ([place] 10/325) 1 tab Q6H PRN ORAL For Pain 4-10 07/15/19 19:15 07/22/19 19:14 07/17/19 04:09 Al Hydroxide/Mg Hydroxide (Mylanta) 30 ml BIDPRN PRN ORAL Abdominal cramps 07/15/19 21:00 08/14/19 20:59 Amlodipine Besylate (Norvasc) 10 mg DAILY ORAL 07/16/19 09:00 08/15/19 08:59 07/17/19 08:46 Atenolol (Tenormin) 25 mg DAILY ORAL 07/16/19 09:00 08/15/19 08:59 07/17/19 08:47 Ceftriaxone Sodium 1 gm/ Dextrose 55 ml @ 110 mls/hr Q24H IVPB 07/15/19 22:00 07/22/19 21:59 07/16/19 21:11 Docusate Sodium (Colace) 100 mg TWICE A DAY ORAL 07/16/19 09:00 08/15/19 08:59 07/17/19 08:47 Doxycycline Monohydrate (Doxycycline Monohydrate) 100 mg EVERY 12 HOURS ORAL 07/15/19 21:00 07/22/19 20:59 07/17/19 08:46 EZETIMIBE (Zetia) 10 mg BEDTIME ORAL 07/15/19 21:00 08/14/19 20:59 07/16/19 21:10 Heparin Sodium (Porcine) (Heparin 5000 units/ml) 5,000 units EVERY 12 HOURS SUBQ 07/15/19 21:00 08/14/19 20:59 07/17/19 08:49 Iopamidol (Isovue-370 150ml) 150 ml NOW PRN INJ Radiology Procedure 07/15/19 16:00 07/17/19 15:59 Iron Sucrose 100 mg/Sodium Chloride 60 ml @ 240 mls/hr QHS IV 07/17/19 21:00 07/21/19 21:14 Magnesium Hydroxide (Mom) 30 ml BEDTIME PRN ORAL Constipation 07/15/19 19:15 08/14/19 19:14 Olanzapine (ZyPREXA) 2.5 mg DAILY ORAL 07/16/19 09:00 08/15/19 08:59 07/17/19 08:46 Ondansetron HCl (Zofran) 4 mg Q6H PRN ORAL Nausea & Vomiting 07/15/19 19:15 08/14/19 19:14 Pravastatin Sodium (Pravachol) 80 mg QHS ORAL 07/15/19 21:00 08/14/19 20:59 07/16/19 21:09 Sertraline HCl (Zoloft) 100 mg DAILY ORAL 07/16/19 09:00 08/15/19 08:59 07/17/19 08:47 Timolol Maleate (Timoptic 0.5% Op Soln) 1 drop BID BOTH EYES 07/16/19 09:00 08/15/19 08:59 07/17/19 08:47 Tizanidine HCl (Zanaflex) 4 mg BEDTIME ORAL 07/15/19 21:00 08/14/19 20:59 07/16/19 21:10 Jonh Joel MD Jul 17, 2019 09:48
--- NOTE | 2019-07-17 10:44 | GI Initial Consult Note ---
History of Present Illness General Date patient seen: Jul 17, 2019 Time patient seen: 10:39 Reason for Hospitalization: Dyspnea/Respdistress Referring physician: CAROL LACEY Reason for Consultation: ANEMIA Present Illness HPI 74-year-old female presents ED for evaluation. Complaining of body aches and weakness for the last 2 days. Also states that she is wheezing. States she has a cough which is productive with yellowish phlegm. States she has chills. Afebrile in triage. Denies chest pain or shortness of breath. Denies sick contacts or recent travel. No other aggravating relieving factors. Denies any other associated symptoms GI consulted for anemia. Patient seen, awake alert oriented x4 no apparent distress. Patient denies any abdominal pain at this time. Denies any nausea vomiting, constipation or diarrhea. Patient presents today with hemoglobin of 10.5, iron saturation of 10. She stated that her last endoscopy and colonoscopy was approximately 3 years ago with unremarkable findings. Home Meds Active Scripts Ondansetron (Zofran) 4 Mg Tablet, 4 MG ORAL Q6H PRN for Nausea & Vomiting, #15 TAB 0 Refills Prov:Roque Crawford MD 07/25/18 Reported Medications Tizanidine Hcl* (ZANAFLEX*) 4 Mg Tablet, 4 MG ORAL THREE TIMES A DAY, #90 TAB 0 Refills 07/15/19 Albuterol Sulfate (VENTOLIN HFA) 18 Gm Hfa.aer.ad, 2 PUFFS INH EVERY 6 HOURS, # 18 GM 0 Refills 07/15/19 Olanzapine* (ZYPREXA*) 2.5 Mg Tablet, 2.5 MG ORAL DAILY, #30 TAB 0 Refills 07/15/19 Rosuvastatin Calcium* (CRESTOR*) 20 Mg Tablet, 20 MG ORAL DAILY, TAB 07/15/19 Calcium Carbonate/Vitamin D3 (OYSTER SHELL+D 250 MG TABLET) 1 Each Tablet, 1 EACH PO, TAB 07/15/19 Ergocalciferol (Vitamin D2) (VITAMIN D2) 2,000 Unit Tablet, 98740 UNIT PO, TAB 07/15/19 Latanoprost/Pf (Latanoprost 0.005% Eye Drop) 7.5 Ml Drops, 1 DROP BOTH EYES DA, ML 12/31/18 Timolol Maleate (Timolol Maleate) 5 Ml Drops, 1 DROP BOTH EYES BID, ML 12/31/18 Sertraline Hcl* (ZOLOFT*) 100 Mg Tablet, 100 MG PO DAILY, TAB 12/31/18 Valsartan (DIOVAN) 320 Mg Tablet, 320 MG ORAL DAILY, TAB 12/31/18 Amlodipine Besylate* (AMLODIPINE BESYLATE*) 10 Mg Tablet, 10 MG ORAL DAILY, TAB 12/31/18 Tizanidine Hcl* (ZANAFLEX*) 4 Mg Tablet, 4 MG ORAL BEDTIME, #90 TAB 0 Refills 12/31/18 Omeprazole (OMEPRAZOLE) 20 Mg Capsule.dr, 20 MG ORAL DAILY, CAP 12/31/18 Atenolol (Tenormin) 25 Mg Tablet, 25 MG ORAL DAILY, TAB 12/31/18 Ezetimibe (ZETIA*) 10 Mg Tablet, 10 MG ORAL BEDTIME, TAB 12/31/18 Hydrocodone/Acetaminophen (Hydrocodon-Acetaminophn 10-325) 1 Each Tablet, 1 TAB ORAL Q6H PRN for For Pain, #30 TAB 0 Refills 12/31/18 Sertraline Hcl* (ZOLOFT*) 100 Mg Tablet, 100 MG PO DAILY, TAB 12/18/16 Atenolol (Tenormin) 25 Mg Tablet, 25 MG ORAL DAILY, TAB 12/18/16 Amlodipine Besylate* (AMLODIPINE BESYLATE*) 10 Mg Tablet, 10 MG PO DAILY 01/30/13 Valsartan (DIOVAN) 320 Mg Tablet, 320 MG PO DAILY, TAB Take one tablet by mouth daily 01/30/13 Pravastatin Sod (PRAVASTATIN SOD) 80 Mg Tablet, 80 MG PO DAILY 01/30/13 Med list reviewed/reconciled: Yes Allergies: Coded Allergies: No Known Allergies (Unverified , 05/21/18) Patient History History Provided By: Patient, Medical Record PMH Narrative Past Medical History: HTN Past Surgical History: none Pertinent Family History: none Social History: Denies: smoking, alcohol use, drug use Last Menstrual Period: menopause Now: No Immunizations: UTD Reviewed Nursing Documentation: PMH: Agreed; PSxH: Agreed Nursing Documentation-PMH Hx Cardiac Problems: Yes - ARTHRITIS Hx Hypertension: Yes Hx Cancer: No Hx Gastrointestinal Problems: No Hx Neurological Problems: No Social History: Denies: smoking, alcohol use, drug use, other Review of Systems All Other Systems: negative except mentioned in HPI Physical Exam Vital Signs Date Time Temp Pulse Resp B/P (MAP) Pulse Ox O2 Delivery O2 Flow Rate FiO2 07/15/19 14:46 98.4 72 20 92/60 (71) 88 Room Air 07/15/19 15:30 21 Sp02 EP Interpretation: reviewed, normal Labs Laboratory Tests Test 07/17/19 05:43 White Blood Count 7.5 K/UL (4.8-10.8) Red Blood Count 3.58 M/UL (4.20-5.40) L Hemoglobin 10.5 G/DL (12.0-16.0) L Hematocrit 32.1 % (37.0-47.0) L Mean Corpuscular Volume 90 FL (80-99) Mean Corpuscular Hemoglobin 29.3 PG (27.0-31.0) Mean Corpuscular Hemoglobin Concent 32.7 G/DL (32.0-36.0) Red Cell Distribution Width 12.9 % (11.6-14.8) Platelet Count 180 K/UL (150-450) Mean Platelet Volume 7.4 FL (6.5-10.1) Neutrophils (%) (Auto) 59.8 % (45.0-75.0) Lymphocytes (%) (Auto) 20.7 % (20.0-45.0) Monocytes (%) (Auto) 6.4 % (1.0-10.0) Eosinophils (%) (Auto) 12.3 % (0.0-3.0) H Basophils (%) (Auto) 0.9 % (0.0-2.0) Sodium Level 141 MMOL/L (136-145) Potassium Level 3.8 MMOL/L (3.5-5.1) Chloride Level 106 MMOL/L (98-107) Carbon Dioxide Level 28 MMOL/L (21-32) Anion Gap 7 mmol/L (5-15) Blood Urea Nitrogen 10 mg/dL (7-18) Creatinine 0.6 MG/DL (0.55-1.30) Estimat Glomerular Filtration Rate mL/min (>60) Glucose Level 76 MG/DL (74-106) Calcium Level 9.4 MG/DL (8.5-10.1) Pro-B-Type Natriuretic Peptide 988 pg/mL (0-125) H General Appearance: well appearing, no apparent distress, alert Head: normocephalic EENT: PERRL/EOMI, normal ENT inspection Neck: supple Respiratory: normal breath sounds, no respiratory distress Cardiovascular: normal rate Gastrointestinal: normal inspection, non tender, soft, normal bowel sounds, non -distended Rectal: deferred Genitourinary: no CVA tenderness Musculoskeletal: normal inspection, back normal Neurologic: normal inspection, alert, oriented x3, responsive Psychiatric: normal inspection, judgement/insight normal, memory normal Skin: normal inspection, normal color, no rash, warm/dry, palpation normal, well hydrated Lymphatic: normal inspection, no adenopathy Other Organ Systems Abdomen is soft, nontender, nondistended. Bowel sounds active in all 4 quadrants. Current Medications Current Medications Medications (Trade) Dose Ordered Sig/Ethan Route PRN Reason Start Time Stop Time Status Last Admin Dose Admin Acetaminophen (Tylenol) 650 mg Q6H PRN ORAL Mild Pain/Temp > 100.5 07/15/19 19:15 08/14/19 19:14 07/16/19 15:35 Acetaminophen/ Hydrocodone Bitart ([place] 10/325) 1 tab Q6H PRN ORAL For Pain 4-10 07/15/19 19:15 07/22/19 19:14 07/17/19 04:09 Al Hydroxide/Mg Hydroxide (Mylanta) 30 ml BIDPRN PRN ORAL Abdominal cramps 07/15/19 21:00 08/14/19 20:59 Amlodipine Besylate (Norvasc) 10 mg DAILY ORAL 07/16/19 09:00 08/15/19 08:59 07/17/19 08:46 Atenolol (Tenormin) 25 mg DAILY ORAL 07/16/19 09:00 08/15/19 08:59 07/17/19 08:47 Ceftriaxone Sodium 1 gm/ Dextrose 55 ml @ 110 mls/hr Q24H IVPB 07/15/19 22:00 07/22/19 21:59 07/16/19 21:11 Docusate Sodium (Colace) 100 mg TWICE A DAY ORAL 07/16/19 09:00 08/15/19 08:59 07/17/19 08:47 Doxycycline Monohydrate (Doxycycline Monohydrate) 100 mg EVERY 12 HOURS ORAL 07/15/19 21:00 07/22/19 20:59 07/17/19 08:46 EZETIMIBE (Zetia) 10 mg BEDTIME ORAL 07/15/19 21:00 08/14/19 20:59 07/16/19 21:10 Heparin Sodium (Porcine) (Heparin 5000 units/ml) 5,000 units EVERY 12 HOURS SUBQ 07/15/19 21:00 08/14/19 20:59 07/17/19 08:49 Iopamidol (Isovue-370 150ml) 150 ml NOW PRN INJ Radiology Procedure 07/15/19 16:00 07/17/19 15:59 Iron Sucrose 100 mg/Sodium Chloride 60 ml @ 240 mls/hr QHS IV 07/17/19 21:00 07/21/19 21:14 Magnesium Hydroxide (Mom) 30 ml BEDTIME PRN ORAL Constipation 07/15/19 19:15 08/14/19 19:14 Olanzapine (ZyPREXA) 2.5 mg DAILY ORAL 07/16/19 09:00 08/15/19 08:59 07/17/19 08:46 Ondansetron HCl (Zofran) 4 mg Q6H PRN ORAL Nausea & Vomiting 07/15/19 19:15 08/14/19 19:14 Pravastatin Sodium (Pravachol) 80 mg QHS ORAL 07/15/19 21:00 08/14/19 20:59 07/16/19 21:09 Sertraline HCl (Zoloft) 100 mg DAILY ORAL 07/16/19 09:00 08/15/19 08:59 07/17/19 08:47 Timolol Maleate (Timoptic 0.5% Op Soln) 1 drop BID BOTH EYES 07/16/19 09:00 08/15/19 08:59 07/17/19 08:47 Tizanidine HCl (Zanaflex) 4 mg BEDTIME ORAL 07/15/19 21:00 08/14/19 20:59 07/16/19 21:10 GI: Plan Problems: (1) Anemia (2) SOB (shortness of breath) (3) Nausea vomiting and diarrhea (4) CHF exacerbation (5) Iron deficiency Plan We will consider GI procedures to evaluate anemia pending work-up anemia work up OB stool r/o GI bleed monitor H&H, prn transfusions bowel regimen zofran prn ppi venofer fu labs Discussed with Dr. Putnam. Thank you for this patient referral, we will follow. The patient was seen and examined at bedside and all new and available data was reviewed in the patients chart. I agree with the above findings, impression and plan. (Patient seen earlier today. Signature stamp does not reflect patient encounter time.). - MD Yvette Mosley AnhRene JIMENEZ Jul 17, 2019 10:44
[2019-07-17 12:00] VITALS: BP 144/80
--- NOTE | 2019-07-17 12:57 | Cardiology Progress Note ---
Assessment/Plan Status: stable Assessment/Plan Assessment/Plan Status: stable Assessment/Plan: Assessment: HTN HLD SOB CHF Plan: Echocardiogram, BNP elevated -LVEF 65%, diastolic dysfunction CXR pleural effusion CTA with aortic atherosclerosis Serial EKG/Troponin - negative Outpatient stress test Mild diuresis as tolerated Maintain blood pressure medications Subjective Cardiovascular: Reports: no symptoms Respiratory: Reports: no symptoms Gastrointestinal/Abdominal: Reports: no symptoms Genitourinary: Reports: no symptoms Subjective Coverage for [place] NO acute events, vitals stable, nursing notes reviewed Objective Last 24 Hour Vital Signs Date Time Temp Pulse Resp B/P (MAP) Pulse Ox O2 Delivery O2 Flow Rate FiO2 07/17/19 12:00 97.7 74 18 144/80 (101) 94 07/17/19 09:00 Room Air 07/17/19 08:47 76 111/64 07/17/19 08:46 76 111/64 07/17/19 08:00 74 07/17/19 08:00 97.7 76 18 111/64 (80) 97 07/17/19 04:00 67 07/17/19 03:47 97.4 59 19 132/74 (93) 96 07/17/19 00:00 54 07/17/19 00:00 96.6 65 18 120/63 (82) 97 07/16/19 21:00 Room Air 07/16/19 20:00 60 07/16/19 20:00 98.3 63 18 116/58 (77) 97 07/16/19 16:00 66 07/16/19 16:00 98.7 67 18 122/70 (87) 99 General Appearance: no apparent distress, alert EENT: PERRL/EOMI, normal ENT inspection, TMs normal, pharynx normal Neck: non-tender, normal alignment, supple, normal inspection, no JVD Rhythm: NSR Cardiovascular: normal peripheral pulses, normal rate, regular rhythm Respiratory/Chest: chest wall non-tender, lungs clear, normal breath sounds, no respiratory distress Abdomen: normal bowel sounds, non tender, soft, no organomegaly, no mass Extremities: normal range of motion, non-tender, normal inspection Neurologic: pediatric dental hygienist II-XII grossly normal, no motor/sensory deficits Intake and Output 07/16/19 07/17/19 19:00 07:00 Intake Total 650 ml Output Total 1300 ml Balance -650 ml Intake Oral 650 ml Output Urine Total 1300 ml # Voids 2 Laboratory Tests Test 07/17/19 05:43 White Blood Count 7.5 K/UL (4.8-10.8) Red Blood Count 3.58 M/UL (4.20-5.40) L Hemoglobin 10.5 G/DL (12.0-16.0) L Hematocrit 32.1 % (37.0-47.0) L Mean Corpuscular Volume 90 FL (80-99) Mean Corpuscular Hemoglobin 29.3 PG (27.0-31.0) Mean Corpuscular Hemoglobin Concent 32.7 G/DL (32.0-36.0) Red Cell Distribution Width 12.9 % (11.6-14.8) Platelet Count 180 K/UL (150-450) Mean Platelet Volume 7.4 FL (6.5-10.1) Neutrophils (%) (Auto) 59.8 % (45.0-75.0) Lymphocytes (%) (Auto) 20.7 % (20.0-45.0) Monocytes (%) (Auto) 6.4 % (1.0-10.0) Eosinophils (%) (Auto) 12.3 % (0.0-3.0) H Basophils (%) (Auto) 0.9 % (0.0-2.0) Sodium Level 141 MMOL/L (136-145) Potassium Level 3.8 MMOL/L (3.5-5.1) Chloride Level 106 MMOL/L (98-107) Carbon Dioxide Level 28 MMOL/L (21-32) Anion Gap 7 mmol/L (5-15) Blood Urea Nitrogen 10 mg/dL (7-18) Creatinine 0.6 MG/DL (0.55-1.30) Estimat Glomerular Filtration Rate mL/min (>60) Glucose Level 76 MG/DL (74-106) Calcium Level 9.4 MG/DL (8.5-10.1) Pro-B-Type Natriuretic Peptide 988 pg/mL (0-125) H Kosta Lawson MD Jul 17, 2019 12:57
[2019-07-17 16:00] VITALS: BP 128/63
--- NOTE | 2019-07-17 16:41 | Pulmonology Progress Note ---
Assessment/Plan Assessment/Plan Pulmonary Consultation HPI Patient is a 74-year-old woman with previous history of Hypertension. Admitted complaining of body aches, weakness and wheezing for the last 2 days. She has a cough which is productive with yellowish phlegm. States she has chills. Afebrile in triage. Denies chest pain or shortness of breath. Denies sick contacts or recent travel. No other aggravating relieving factors. Denies any other associated symptoms Allergies: No Known Allergies Past Medical History: Hypertension, Arthritis All Other Systems: negative except mentioned in HPI Physical Exam Vital Signs Noted General Appearance: no apparent distress, alert, GCS 15, non-toxic Head: normocephalic, atraumatic Eyes: bilateral eye normal inspection, bilateral eye PERRL ENT: hearing grossly normal, normal pharynx, no angioedema, normal voice, no lN Neck: no masses Respiratory: chest non-tender, lungs clear, normal breath sounds, occasional wheezes Cardiovascular : regular rate, rhythm, normal HS1, HS2, no edema Gastrointestinal: normal bowel sounds, non tender, soft, non-distended, no guarding, no rebound Musculoskeletal: back normal, gait/station normal, normal range of motion, non- tender Neurologic: alert, oriented x3, responsive, motor strength/tone normal, no focal signs Skin: no rash, no edema Impression: Possible Pneumonia CHF exacerbation Obstructive airways disease Hypertension Plan IV antibiotics Monitor labs HHN O2 PRN PPX Diuresis PRN per Cardiology Labs Test 07/15/19 15:18 07/15/19 16:44 White Blood Count 10.6 K/UL (4.8-10.8) Red Blood Count 3.36 M/UL (4.20-5.40) Hemoglobin 10.1 G/DL (12.0-16.0) Hematocrit 29.7 % (37.0-47.0) Mean Corpuscular Volume 88 FL (80-99) Mean Corpuscular Hemoglobin 30.1 PG (27.0-31.0) Mean Corpuscular Hemoglobin Concent 34.1 G/DL (32.0-36.0) Red Cell Distribution Width 13.2 % (11.6-14.8) Platelet Count 161 K/UL (150-450) Mean Platelet Volume 6.4 FL (6.5-10.1) Neutrophils (%) (Auto) 71.4 % (45.0-75.0) Lymphocytes (%) (Auto) 17.2 % (20.0-45.0) Monocytes (%) (Auto) 5.3 % (1.0-10.0) Eosinophils (%) (Auto) 5.4 % (0.0-3.0) Basophils (%) (Auto) 0.7 % (0.0-2.0) Sodium Level 136 MMOL/L (136-145) Potassium Level 3.9 MMOL/L (3.5-5.1) Chloride Level 101 MMOL/L (98-107) Carbon Dioxide Level 27 MMOL/L (21-32) Anion Gap 8 mmol/L (5-15) Blood Urea Nitrogen 24 mg/dL (7-18) Creatinine 1.2 MG/DL (0.55-1.30) Estimat Glomerular Filtration Rate mL/min (>60) Glucose Level 133 MG/DL (74-106) Calcium Level 9.3 MG/DL (8.5-10.1) Total Bilirubin 0.7 MG/DL (0.2-1.0) Aspartate Amino Transf (AST/SGOT) 29 U/L (15-37) Alanine Aminotransferase (ALT/SGPT) 33 U/L (12-78) Alkaline Phosphatase 89 U/L (46-116) Troponin I 0.000 ng/mL (0.000-0.056) Pro-B-Type Natriuretic Peptide 1440 pg/mL (0-125) Total Protein 7.2 G/DL (6.4-8.2) Albumin 3.3 G/DL (3.4-5.0) Globulin 3.9 g/dL Albumin/Globulin Ratio 0.8 (1.0-2.7) EKG: Rate: normal Rhythm: NSR ST Segments: no acute changes Chest X-Ray: Possible infiltrate RLZ, no effusion, other - cardiac silhouette widened, possible CHF CTA Chest/abd/pelvis No evidence of aortic dissection or aneurysm. Moderate atherosclerotic vascular disease demonstrated. Subjective ROS Limited/Unobtainable: No Allergies: Coded Allergies: No Known Allergies (Unverified , 05/21/18) Objective Last 24 Hour Vital Signs Date Time Temp Pulse Resp B/P (MAP) Pulse Ox O2 Delivery O2 Flow Rate FiO2 07/17/19 16:00 96.5 76 18 128/63 (84) 93 07/17/19 12:00 77 07/17/19 12:00 97.7 74 18 144/80 (101) 94 07/17/19 09:00 Room Air 07/17/19 08:47 76 111/64 07/17/19 08:46 76 111/64 07/17/19 08:00 74 07/17/19 08:00 97.7 76 18 111/64 (80) 97 07/17/19 04:00 67 07/17/19 03:47 97.4 59 19 132/74 (93) 96 07/17/19 00:00 54 07/17/19 00:00 96.6 65 18 120/63 (82) 97 07/16/19 21:00 Room Air 07/16/19 20:00 60 07/16/19 20:00 98.3 63 18 116/58 (77) 97 Intake and Output 07/16/19 07/17/19 19:00 07:00 Intake Total 650 ml Output Total 1300 ml Balance -650 ml Intake Oral 650 ml Output Urine Total 1300 ml # Voids 2 Laboratory Tests 07/17/19 05:43: White Blood Count 7.5, Red Blood Count 3.58L, Hemoglobin 10.5L, Hematocrit 32.1L , Mean Corpuscular Volume 90, Mean Corpuscular Hemoglobin 29.3, Mean Corpuscular Hemoglobin Concent 32.7, Red Cell Distribution Width 12.9, Platelet Count 180, Mean Platelet Volume 7.4, Neutrophils (%) (Auto) 59.8, Lymphocytes (% ) (Auto) 20.7, Monocytes (%) (Auto) 6.4, Eosinophils (%) (Auto) 12.3H, Basophils (%) (Auto) 0.9, Sodium Level 141, Potassium Level 3.8, Chloride Level 106, Carbon Dioxide Level 28, Anion Gap 7, Blood Urea Nitrogen 10, Creatinine 0.6, Estimat Glomerular Filtration Rate , Glucose Level 76, Calcium Level 9.4, Pro-B-Type Natriuretic Peptide 988H Current Medications Medications (Trade) Dose Ordered Sig/Ethan Route PRN Reason Start Time Stop Time Status Last Admin Dose Admin Acetaminophen (Tylenol) 650 mg Q6H PRN ORAL Mild Pain/Temp > 100.5 07/15/19 19:15 08/14/19 19:14 07/16/19 15:35 Acetaminophen/ Hydrocodone Bitart ([place] 10/325) 1 tab Q6H PRN ORAL For Pain 4-10 07/15/19 19:15 07/22/19 19:14 07/17/19 04:09 Al Hydroxide/Mg Hydroxide (Mylanta) 30 ml BIDPRN PRN ORAL Abdominal cramps 07/15/19 21:00 08/14/19 20:59 Amlodipine Besylate (Norvasc) 10 mg DAILY ORAL 07/16/19 09:00 08/15/19 08:59 07/17/19 08:46 Atenolol (Tenormin) 25 mg DAILY ORAL 07/16/19 09:00 08/15/19 08:59 07/17/19 08:47 Ceftriaxone Sodium 1 gm/ Dextrose 55 ml @ 110 mls/hr Q24H IVPB 07/15/19 22:00 07/22/19 21:59 07/16/19 21:11 Docusate Sodium (Colace) 100 mg TWICE A DAY ORAL 07/16/19 09:00 08/15/19 08:59 07/17/19 08:47 Doxycycline Monohydrate (Doxycycline Monohydrate) 100 mg EVERY 12 HOURS ORAL 07/15/19 21:00 07/22/19 20:59 07/17/19 08:46 EZETIMIBE (Zetia) 10 mg BEDTIME ORAL 07/15/19 21:00 08/14/19 20:59 07/16/19 21:10 Heparin Sodium (Porcine) (Heparin 5000 units/ml) 5,000 units EVERY 12 HOURS SUBQ 07/15/19 21:00 08/14/19 20:59 07/17/19 08:49 Iron Sucrose 100 mg/Sodium Chloride 60 ml @ 240 mls/hr QHS IV 07/17/19 21:00 07/21/19 21:14 Magnesium Hydroxide (Mom) 30 ml BEDTIME PRN ORAL Constipation 07/15/19 19:15 08/14/19 19:14 Olanzapine (ZyPREXA) 2.5 mg DAILY ORAL 07/16/19 09:00 08/15/19 08:59 07/17/19 08:46 Ondansetron HCl (Zofran) 4 mg Q6H PRN ORAL Nausea & Vomiting 07/15/19 19:15 08/14/19 19:14 Pravastatin Sodium (Pravachol) 80 mg QHS ORAL 07/15/19 21:00 08/14/19 20:59 07/16/19 21:09 Sertraline HCl (Zoloft) 100 mg DAILY ORAL 07/16/19 09:00 08/15/19 08:59 07/17/19 08:47 Timolol Maleate (Timoptic 0.5% Op Soln) 1 drop BID BOTH EYES 07/16/19 09:00 08/15/19 08:59 07/17/19 08:47 Tizanidine HCl (Zanaflex) 4 mg BEDTIME ORAL 07/15/19 21:00 08/14/19 20:59 07/16/19 21:10 Kosta Robb MD Jul 17, 2019 16:41
--- NOTE | 2019-07-17 19:20 | NUR ---
HAND-OFF: Report given to CLARENCE Lombardo. Plan of care endorsed.
--- NOTE | 2019-07-17 19:42 | NUR ---
NURSE NOTES: Received pt and report from CLARENCE Serna. Observed pt resting in bed with both eyes open and talking on the phone. Pt is A/Ox4. lunchroom monitor is in placed, IV site intact, asymptomatic, and patent. Bed is in the lowest position and locked. Call light within reach. No signs and symptoms of acute distress noted at this time. Will continue plan of care.
[2019-07-17 20:00] VITALS: BP 123/78
--- NOTE | 2019-07-17 20:37 | General Progress Note ---
Assessment/Plan Status: stable Assessment/Plan: fever cough chf chronic back pain anemia diabetes abx per ID fup culture reutls pulmonay hygine diuresis diastolic dysfuntion echo noted EF 65% start venofer check stool ob GI eval PT ambulate dvt and ulcer rpohylaxis Subjective Allergies: Coded Allergies: No Known Allergies (Unverified , 05/21/18) Subjective some dyspnea persists no cp Objective Last 24 Hour Vital Signs Date Time Temp Pulse Resp B/P (MAP) Pulse Ox O2 Delivery O2 Flow Rate FiO2 07/17/19 20:00 99.5 75 19 123/78 (93) 93 07/17/19 16:00 76 07/17/19 16:00 96.5 76 18 128/63 (84) 93 07/17/19 12:00 77 07/17/19 12:00 97.7 74 18 144/80 (101) 94 07/17/19 09:00 Room Air 07/17/19 08:47 76 111/64 07/17/19 08:46 76 111/64 07/17/19 08:00 74 07/17/19 08:00 97.7 76 18 111/64 (80) 97 07/17/19 04:00 67 07/17/19 03:47 97.4 59 19 132/74 (93) 96 07/17/19 00:00 54 07/17/19 00:00 96.6 65 18 120/63 (82) 97 07/16/19 21:00 Room Air Intake and Output 07/16/19 07/17/19 19:00 07:00 Intake Total 650 ml Output Total 1300 ml Balance -650 ml Intake Oral 650 ml Output Urine Total 1300 ml # Voids 2 Laboratory Tests 07/17/19 05:43: White Blood Count 7.5, Red Blood Count 3.58L, Hemoglobin 10.5L, Hematocrit 32.1L , Mean Corpuscular Volume 90, Mean Corpuscular Hemoglobin 29.3, Mean Corpuscular Hemoglobin Concent 32.7, Red Cell Distribution Width 12.9, Platelet Count 180, Mean Platelet Volume 7.4, Neutrophils (%) (Auto) 59.8, Lymphocytes (% ) (Auto) 20.7, Monocytes (%) (Auto) 6.4, Eosinophils (%) (Auto) 12.3H, Basophils (%) (Auto) 0.9, Sodium Level 141, Potassium Level 3.8, Chloride Level 106, Carbon Dioxide Level 28, Anion Gap 7, Blood Urea Nitrogen 10, Creatinine 0.6, Estimat Glomerular Filtration Rate , Glucose Level 76, Calcium Level 9.4, Pro-B-Type Natriuretic Peptide 988H 07/17/19 16:54: Stool Occult Blood [Pending] Height (Feet): 5 Height (Inches): 0.00 Weight (Pounds): 148 General Appearance: WD/WN, no apparent distress Neck: supple Cardiovascular: normal rate Respiratory/Chest: lungs clear Aman Hardin MD Jul 17, 2019 20:37
[2019-07-17] MEDS ORDERED: Iron Sucrose 100 MG in NS 55 ML IVPB SCH (21:00)
[2019-07-17] MEDS: cefTRIAXone 1 GM in D5W 55 ML IVPB SCH (21:30)
--- NOTE | 2019-07-17 23:00 | Diagnostic Imaging Report ---
APPROVED REPORT CPT Code: 70304 Present Symptoms Comments: BILATERAL LEGS PAIN. BILATERAL: Imaging reveals a patent deep venous system bilaterally. There is no evidence of thrombus within the femoral, popliteal or tibial segments. The greater saphenous veins are also within normal limits. Doppler indicates normal spontaneous flow within these segments.
[2019-07-18] VITALS: BP 129/69
[2019-07-18 04:00] VITALS: BP 123/73
--- NOTE | 2019-07-18 07:00 | NUR ---
NURSE NOTES: receive dpatient report from brooke rn. patient is on bed awake. not in acute distress. arabic speaking. bed is low and lcoked for safety. no arrythmias reported during the night. SR on the monitor. will follow plan of care.
--- NOTE | 2019-07-18 07:29 | NUR ---
HAND-OFF: Report given to CLARENCE Medina.
[2019-07-18 08:00] VITALS: BP 120/76
[2019-07-18 08:35] LABS: BASOPHILS % (AUTO) 0.7 % (0.0-2.0); EOSINOPHILS % (AUTO) 13.6 % (0.0-3.0); HEMATOCRIT 34.7 % (37.0-47.0); HEMOGLOBIN 11.4 G/DL (12.0-16.0); LYMPHOCYTES % (AUTO) 23.8 % (20.0-45.0); MEAN CORPUSCULAR VOLUME 89 FL (80-99); PLATELET COUNT 218 K/UL (150-450); RED BLOOD COUNT 3.91 M/UL (4.20-5.40); RED CELL DISTRIBUTION WIDTH 12.8 % (11.6-14.8); WHITE BLOOD COUNT 7.3 K/UL (4.8-10.8)
[2019-07-18] MEDS: OLANZapine 2.5mg tab ORAL SCH (08:35)
[2019-07-18] MEDS: Doxycycline Monohydrate 100mg ORAL SCH ×2 (08:35→21:31)
[2019-07-18] MEDS: Timolol 0.5% Op Soln 2.5ml BOTH EYES SCH ×2 (08:35→18:06)
[2019-07-18] MEDS: Sertraline 100mg tab ORAL SCH (08:35)
[2019-07-18] MEDS: Heparin 5000 units/ml inj SUBQ SCH ×2 (08:36→21:35)
[2019-07-18] MEDS: Docusate 100mg cap ORAL SCH ×2 (08:36→18:06)
[2019-07-18] MEDS: Atenolol 25mg tab ORAL SCH (08:36)
[2019-07-18] MEDS: HYDROcodone/Acetamin 10/325 tab ORAL PRN ×2 (08:42→21:45)
--- NOTE | 2019-07-18 08:47 | General Progress Note ---
Assessment/Plan Problem List: (1) Anemia ICD Codes: D64.9 - Anemia, unspecified SNOMED: 637841740 (2) CHF exacerbation ICD Codes: I50.9 - Heart failure, unspecified SNOMED: 813685585, 68170267743340 Qualifiers: Qualified Codes: I50.9 - Heart failure, unspecified (3) SOB (shortness of breath) ICD Codes: R06.02 - Shortness of breath SNOMED: 794034878 (4) Nausea vomiting and diarrhea ICD Codes: R11.2 - Nausea with vomiting, unspecified; R19.7 - Diarrhea, unspecified SNOMED: 8698202 (5) Iron deficiency ICD Codes: E61.1 - Iron deficiency SNOMED: 55681334 Status: stable Assessment/Plan: plan EGD and colonoscopy for Saturday iv iron fu labs Subjective ROS Limited/Unobtainable: Yes Allergies: Coded Allergies: No Known Allergies (Unverified , 05/21/18) Objective Last 24 Hour Vital Signs Date Time Temp Pulse Resp B/P (MAP) Pulse Ox O2 Delivery O2 Flow Rate FiO2 07/18/19 08:36 93 120/76 07/18/19 08:35 93 120/76 07/18/19 08:00 99.1 93 18 120/76 (91) 99 07/18/19 04:00 76 07/18/19 04:00 98.6 79 18 123/73 (90) 97 07/18/19 00:00 98.9 77 19 129/69 (89) 96 07/18/19 00:00 64 07/17/19 21:00 Room Air 07/17/19 20:00 100 07/17/19 20:00 99.5 75 19 123/78 (93) 93 07/17/19 16:00 76 07/17/19 16:00 96.5 76 18 128/63 (84) 93 07/17/19 12:00 77 07/17/19 12:00 97.7 74 18 144/80 (101) 94 07/17/19 09:00 Room Air 07/17/19 08:47 76 111/64 Intake and Output 07/17/19 07/18/19 19:00 07:00 # Voids 3 4 # Bowel Movements 1 Laboratory Tests 07/17/19 16:54: Stool Occult Blood [Pending] 07/18/19 07:25: White Blood Count 7.3, Red Blood Count 3.91L, Hemoglobin 11.4L, Hematocrit 34.7L , Mean Corpuscular Volume 89, Mean Corpuscular Hemoglobin 29.3, Mean Corpuscular Hemoglobin Concent 33.0, Red Cell Distribution Width 12.8, Platelet Count 218, Mean Platelet Volume 6.4L, Neutrophils (%) (Auto) 55.0, Lymphocytes ( %) (Auto) 23.8, Monocytes (%) (Auto) 7.0, Eosinophils (%) (Auto) 13.6H, Basophils (%) (Auto) 0.7, Sodium Level [Pending], Potassium Level [Pending], Chloride Level [Pending], Carbon Dioxide Level [Pending], Blood Urea Nitrogen [ Pending], Creatinine [Pending], Estimat Glomerular Filtration Rate [Pending], Glucose Level [Pending], Calcium Level [Pending] Height (Feet): 5 Height (Inches): 0.00 Weight (Pounds): 148 General Appearance: alert EENT: normal ENT inspection Neck: supple Cardiovascular: normal rate Respiratory/Chest: decreased breath sounds Abdomen: normal bowel sounds, non tender, soft Extremities: non-tender Baltazar Putnam MD Jul 18, 2019 08:47
[2019-07-18 08:59] LABS: ANION GAP 10 mmol/L (5-15); BLOOD UREA NITROGEN 9 mg/dL (7-18); CALCIUM 9.8 MG/DL (8.5-10.1); CARBON DIOXIDE 26 MMOL/L (21-32); CHLORIDE 109 MMOL/L (98-107); CREATININE 0.7 MG/DL (0.55-1.30); POTASSIUM 3.6 MMOL/L (3.5-5.1); SODIUM 145 MMOL/L (136-145)
[2019-07-18] MEDS ORDERED: cefTRIAXone 1 GM in D5W 55 ML IVPB SCH ×2 (09:00→22:00)
--- NOTE | 2019-07-18 10:08 | Cardiology Progress Note ---
Assessment/Plan Status: stable Assessment/Plan Assessment/Plan Status: stable Assessment/Plan: Assessment: HTN HLD SOB CHF Plan: Echocardiogram, BNP elevated -LVEF 65%, diastolic dysfunction CXR pleural effusion CTA with aortic atherosclerosis Serial EKG/Troponin - negative Outpatient stress test Mild diuresis as tolerated Maintain blood pressure medications Ok to proceed wtih EGD saturday Subjective Cardiovascular: Reports: no symptoms Respiratory: Reports: no symptoms Gastrointestinal/Abdominal: Reports: no symptoms Genitourinary: Reports: no symptoms Subjective Coverage for [place] NO acute events, vitals stable, nursing notes reviewed EGD saturday Objective Last 24 Hour Vital Signs Date Time Temp Pulse Resp B/P (MAP) Pulse Ox O2 Delivery O2 Flow Rate FiO2 07/18/19 09:00 Room Air 07/18/19 08:36 93 120/76 07/18/19 08:35 93 120/76 07/18/19 08:00 99.1 93 18 120/76 (91) 99 07/18/19 04:00 76 07/18/19 04:00 98.6 79 18 123/73 (90) 97 07/18/19 00:00 98.9 77 19 129/69 (89) 96 07/18/19 00:00 64 07/17/19 21:00 Room Air 07/17/19 20:00 100 07/17/19 20:00 99.5 75 19 123/78 (93) 93 07/17/19 16:00 76 07/17/19 16:00 96.5 76 18 128/63 (84) 93 07/17/19 12:00 77 07/17/19 12:00 97.7 74 18 144/80 (101) 94 General Appearance: no apparent distress, alert EENT: PERRL/EOMI, normal ENT inspection, TMs normal, pharynx normal Neck: non-tender, normal alignment, supple, normal inspection, no JVD Rhythm: NSR Cardiovascular: normal peripheral pulses, normal rate Respiratory/Chest: chest wall non-tender, lungs clear Abdomen: normal bowel sounds, non tender Extremities: normal range of motion, non-tender Intake and Output 07/17/19 07/18/19 19:00 07:00 # Voids 3 4 # Bowel Movements 1 Laboratory Tests Test 07/17/19 16:54 07/18/19 07:25 Stool Occult Blood Positive (NEGATIVE) White Blood Count 7.3 K/UL (4.8-10.8) Red Blood Count 3.91 M/UL (4.20-5.40) L Hemoglobin 11.4 G/DL (12.0-16.0) L Hematocrit 34.7 % (37.0-47.0) L Mean Corpuscular Volume 89 FL (80-99) Mean Corpuscular Hemoglobin 29.3 PG (27.0-31.0) Mean Corpuscular Hemoglobin Concent 33.0 G/DL (32.0-36.0) Red Cell Distribution Width 12.8 % (11.6-14.8) Platelet Count 218 K/UL (150-450) Mean Platelet Volume 6.4 FL (6.5-10.1) L Neutrophils (%) (Auto) 55.0 % (45.0-75.0) Lymphocytes (%) (Auto) 23.8 % (20.0-45.0) Monocytes (%) (Auto) 7.0 % (1.0-10.0) Eosinophils (%) (Auto) 13.6 % (0.0-3.0) H Basophils (%) (Auto) 0.7 % (0.0-2.0) Sodium Level 145 MMOL/L (136-145) Potassium Level 3.6 MMOL/L (3.5-5.1) Chloride Level 109 MMOL/L (98-107) H Carbon Dioxide Level 26 MMOL/L (21-32) Anion Gap 10 mmol/L (5-15) Blood Urea Nitrogen 9 mg/dL (7-18) Creatinine 0.7 MG/DL (0.55-1.30) Estimat Glomerular Filtration Rate mL/min (>60) Glucose Level 85 MG/DL (74-106) Calcium Level 9.8 MG/DL (8.5-10.1) Kosta Lawson MD Jul 18, 2019 10:08
[2019-07-18 12:00] VITALS: BP 109/62
--- NOTE | 2019-07-18 14:30 | NUR ---
TRANSFER TO FLOOR: Patient transferred to Mick RN, per Dr. Hardin. Report given to RN. Belongings and medications given to RN. Family and or S/O informed of transfer.
--- NOTE | 2019-07-18 14:50 | NUR ---
NURSE NOTES: Pt was transferred to 301-2, all belongings accounted for. Pt ox4 calm and cooperative.
[2019-07-18 16:00] VITALS: BP 128/77
--- NOTE | 2019-07-18 19:14 | NUR ---
HAND-OFF: Report given to Thais FORTUNE .
--- NOTE | 2019-07-18 19:30 | NUR ---
NURSE NOTES: RECEIVED PATIENT LYING IN BED, AWAKE, ALERT/ORIENTED X4, ICELANDIC SPEAKING, ABLE TO VERBALIZE SIMPLE NEEDS IN [place], CHRONIC PAIN SECONDARY TO ARTHRITIS 8/10 "ALL OVER"/THROBBING. NO SIGNS AND SYMPTOMS OF ACUTE CARDIO RESPIRATORY DISTRESS/SHORTNESS OF BREATH, DENIES CHEST PAIN. NO COMPLAINTS OF GI DISCOMFORT, NO N/V/D. SIDE RAILS UP X3 FOR SAFETY,BED IN LOWEST POSITION FOR SAFETY. ENCOURAGED PATIENT TO UTILIZE CALL LIGHT FOR ASSISTANCE, VERBALIZED UNDERSTANDING. NAD.
[2019-07-18 20:00] VITALS: BP 138/82
--- NOTE | 2019-07-18 20:59 | General Progress Note ---
Assessment/Plan Status: stable Assessment/Plan: fever cough chf chronic back pain anemia diabetes abx per ID fup culture reutls pulmonay hygine diuresis diastolic dysfuntion echo noted EF 65% on venofer check stool ob GI eval appreciated planning on colonospu saturday PT ambulate dvt and ulcer rpohylaxis Subjective Allergies: Coded Allergies: No Known Allergies (Unverified , 05/21/18) Subjective overall feels better no chest painbreathing improved dw Dr Chambers planning on doing colonpsy due to anemia Objective Last 24 Hour Vital Signs Date Time Temp Pulse Resp B/P (MAP) Pulse Ox O2 Delivery O2 Flow Rate FiO2 07/18/19 20:00 98.2 82 18 138/82 (100) 96 07/18/19 16:08 99.3 07/18/19 16:00 98.7 85 16 128/77 (94) 97 07/18/19 12:00 99.3 73 18 109/62 (78) 97 07/18/19 09:00 Room Air 07/18/19 08:36 93 120/76 07/18/19 08:35 93 120/76 07/18/19 08:00 90 07/18/19 08:00 99.1 93 18 120/76 (91) 99 07/18/19 04:00 76 07/18/19 04:00 98.6 79 18 123/73 (90) 97 07/18/19 00:00 98.9 77 19 129/69 (89) 96 07/18/19 00:00 64 07/17/19 21:00 Room Air Intake and Output 07/17/19 07/18/19 18:59 06:59 # Voids 3 4 # Bowel Movements 1 Laboratory Tests 07/18/19 07:25: White Blood Count 7.3, Red Blood Count 3.91L, Hemoglobin 11.4L, Hematocrit 34.7L , Mean Corpuscular Volume 89, Mean Corpuscular Hemoglobin 29.3, Mean Corpuscular Hemoglobin Concent 33.0, Red Cell Distribution Width 12.8, Platelet Count 218, Mean Platelet Volume 6.4L, Neutrophils (%) (Auto) 55.0, Lymphocytes ( %) (Auto) 23.8, Monocytes (%) (Auto) 7.0, Eosinophils (%) (Auto) 13.6H, Basophils (%) (Auto) 0.7, Sodium Level 145, Potassium Level 3.6, Chloride Level 109H, Carbon Dioxide Level 26, Anion Gap 10, Blood Urea Nitrogen 9, Creatinine 0.7, Estimat Glomerular Filtration Rate , Glucose Level 85, Calcium Level 9.8 Height (Feet): 5 Height (Inches): 0.00 Weight (Pounds): 148 General Appearance: WD/WN, no apparent distress Neck: supple Cardiovascular: normal rate Respiratory/Chest: lungs clear Aman Hardin MD Jul 18, 2019 20:59
[2019-07-18] MEDS ORDERED: Milk of Magnesia 30ml Ud ORAL PRN (21:00)
[2019-07-18] MEDS: Iron Sucrose 100 MG in NS 55 ML IV SCH (21:59)
[2019-07-19] VITALS: BP 134/76
[2019-07-19 04:00] VITALS: BP 137/72
--- NOTE | 2019-07-19 05:54 | General Progress Note ---
Assessment/Plan Problem List: (1) Anemia ICD Codes: D64.9 - Anemia, unspecified SNOMED: 619733943 (2) CHF exacerbation ICD Codes: I50.9 - Heart failure, unspecified SNOMED: 593901665, 61681438739822 Qualifiers: Qualified Codes: I50.9 - Heart failure, unspecified (3) SOB (shortness of breath) ICD Codes: R06.02 - Shortness of breath SNOMED: 517559732 (4) Nausea vomiting and diarrhea ICD Codes: R11.2 - Nausea with vomiting, unspecified; R19.7 - Diarrhea, unspecified SNOMED: 1751857 (5) Iron deficiency ICD Codes: E61.1 - Iron deficiency SNOMED: 44917179 Status: stable Assessment/Plan: plan EGD and colonoscopy for Saturday iv iron fu labs stool ob positive Subjective ROS Limited/Unobtainable: Yes Allergies: Coded Allergies: No Known Allergies (Unverified , 05/21/18) Objective Last 24 Hour Vital Signs Date Time Temp Pulse Resp B/P (MAP) Pulse Ox O2 Delivery O2 Flow Rate FiO2 07/19/19 04:00 97.3 72 18 137/72 (93) 96 07/19/19 00:00 97.9 78 18 134/76 (95) 97 07/18/19 22:33 98.2 07/18/19 22:15 98.2 07/18/19 20:52 Room Air 07/18/19 20:00 98.2 82 18 138/82 (100) 96 07/18/19 16:08 99.3 07/18/19 16:00 98.7 85 16 128/77 (94) 97 07/18/19 12:00 99.3 73 18 109/62 (78) 97 07/18/19 09:00 Room Air 07/18/19 08:36 93 120/76 07/18/19 08:35 93 120/76 07/18/19 08:00 90 07/18/19 08:00 99.1 93 18 120/76 (91) 99 Intake and Output 07/18/19 07/19/19 19:00 07:00 Intake Total 780 ml 115 ml Output Total 200 ml Balance 580 ml 115 ml Intake Oral 780 ml IV Total 115 ml Output Urine Total 200 ml # Voids 1 # Bowel Movements 1 1 Laboratory Tests 07/18/19 07:25: White Blood Count 7.3, Red Blood Count 3.91L, Hemoglobin 11.4L, Hematocrit 34.7L , Mean Corpuscular Volume 89, Mean Corpuscular Hemoglobin 29.3, Mean Corpuscular Hemoglobin Concent 33.0, Red Cell Distribution Width 12.8, Platelet Count 218, Mean Platelet Volume 6.4L, Neutrophils (%) (Auto) 55.0, Lymphocytes ( %) (Auto) 23.8, Monocytes (%) (Auto) 7.0, Eosinophils (%) (Auto) 13.6H, Basophils (%) (Auto) 0.7, Sodium Level 145, Potassium Level 3.6, Chloride Level 109H, Carbon Dioxide Level 26, Anion Gap 10, Blood Urea Nitrogen 9, Creatinine 0.7, Estimat Glomerular Filtration Rate , Glucose Level 85, Calcium Level 9.8 Height (Feet): 5 Height (Inches): 0.00 Weight (Pounds): 148 General Appearance: no apparent distress EENT: normal ENT inspection Neck: supple Cardiovascular: normal rate Respiratory/Chest: decreased breath sounds Abdomen: normal bowel sounds, non tender, soft Extremities: non-tender Baltazar Putnam MD Jul 19, 2019 05:54
[2019-07-19 06:23] LABS: BASOPHILS % (AUTO) 0.9 % (0.0-2.0); HEMATOCRIT 31.8 % (37.0-47.0); HEMOGLOBIN 10.5 G/DL (12.0-16.0); LYMPHOCYTES % (AUTO) 31.7 % (20.0-45.0); MEAN CORPUSCULAR VOLUME 90 FL (80-99); MONOCYTES % (AUTO) 7.2 % (1.0-10.0); NEUTROPHILS % (AUTO) 45.2 % (45.0-75.0); PLATELET COUNT 231 K/UL (150-450); RED BLOOD COUNT 3.54 M/UL (4.20-5.40); RED CELL DISTRIBUTION WIDTH 13.2 % (11.6-14.8); WHITE BLOOD COUNT 6.8 K/UL (4.8-10.8)
--- NOTE | 2019-07-19 06:34 | NUR ---
NURSE NOTES: RESTED WELL, NO SIGNIFICANT CHANGE OF CONDITION NOTED THROUGHOUT THE NIGHT. SAFETY MAINTAINED. NAD.
[2019-07-19 06:39] LABS: ANION GAP 10 mmol/L (5-15); BLOOD UREA NITROGEN 12 mg/dL (7-18); CALCIUM 9.7 MG/DL (8.5-10.1); CARBON DIOXIDE 27 MMOL/L (21-32); CHLORIDE 109 MMOL/L (98-107); CREATININE 0.8 MG/DL (0.55-1.30); POTASSIUM 3.2 MMOL/L (3.5-5.1); SODIUM 146 MMOL/L (136-145)
--- NOTE | 2019-07-19 07:10 | NUR ---
NURSE NOTES: Report received from Thais LIMA, rounds made. Patient sleeping in semi-fowlers position, in bed. No distress on RA. LFA heplock intact. Call light in reach, bed in lowest position, will continue to monitor.
--- NOTE | 2019-07-19 07:20 | NUR ---
HAND-OFF: Report given to CLARENCE EASLEY.
[2019-07-19 08:00] VITALS: BP 124/86
--- NOTE | 2019-07-19 09:54 | Cardiology Progress Note ---
Assessment/Plan Status: stable Assessment/Plan Assessment/Plan Status: stable Assessment/Plan: Assessment: HTN HLD SOB CHF Plan: Echocardiogram, BNP elevated -LVEF 65%, diastolic dysfunction CXR pleural effusion CTA with aortic atherosclerosis Serial EKG/Troponin - negative Outpatient stress test Mild diuresis as tolerated Maintain blood pressure medications Ok to proceed wtih EGD saturday Subjective Cardiovascular: Reports: no symptoms Respiratory: Reports: no symptoms Gastrointestinal/Abdominal: Reports: no symptoms Genitourinary: Reports: no symptoms Subjective Coverage for [place] NO acute events, vitals stable, nursing notes reviewed EGD saturday Objective Last 24 Hour Vital Signs Date Time Temp Pulse Resp B/P (MAP) Pulse Ox O2 Delivery O2 Flow Rate FiO2 07/19/19 08:00 98.1 90 18 124/86 (99) 95 07/19/19 04:00 97.3 72 18 137/72 (93) 96 07/19/19 00:00 97.9 78 18 134/76 (95) 97 07/18/19 22:33 98.2 07/18/19 22:15 98.2 07/18/19 20:52 Room Air 07/18/19 20:00 98.2 82 18 138/82 (100) 96 07/18/19 16:08 99.3 07/18/19 16:00 98.7 85 16 128/77 (94) 97 07/18/19 12:00 99.3 73 18 109/62 (78) 97 General Appearance: no apparent distress, alert EENT: PERRL/EOMI, normal ENT inspection, TMs normal, pharynx normal Neck: non-tender, normal alignment, supple, normal inspection, no JVD Rhythm: NSR Cardiovascular: normal peripheral pulses, normal rate, regular rhythm Respiratory/Chest: chest wall non-tender, lungs clear, normal breath sounds, no respiratory distress Abdomen: normal bowel sounds, non tender, soft, no organomegaly, no mass Extremities: normal range of motion, non-tender, normal inspection, no calf tenderness, no swelling Neurologic: break out man II-XII grossly normal, no motor/sensory deficits Intake and Output 07/18/19 07/19/19 19:00 07:00 Intake Total 780 ml 355 ml Output Total 200 ml Balance 580 ml 355 ml Intake Oral 780 ml 240 ml IV Total 115 ml Output Urine Total 200 ml # Voids 1 2 # Bowel Movements 1 1 Laboratory Tests Test 8/18/19 05:05 White Blood Count 6.8 K/UL (4.8-10.8) Red Blood Count 3.54 M/UL (4.20-5.40) L Hemoglobin 10.5 G/DL (12.0-16.0) L Hematocrit 31.8 % (37.0-47.0) L Mean Corpuscular Volume 90 FL (80-99) Mean Corpuscular Hemoglobin 29.6 PG (27.0-31.0) Mean Corpuscular Hemoglobin Concent 33.0 G/DL (32.0-36.0) Red Cell Distribution Width 13.2 % (11.6-14.8) Platelet Count 231 K/UL (150-450) Mean Platelet Volume 6.8 FL (6.5-10.1) Neutrophils (%) (Auto) 45.2 % (45.0-75.0) Lymphocytes (%) (Auto) 31.7 % (20.0-45.0) Monocytes (%) (Auto) 7.2 % (1.0-10.0) Eosinophils (%) (Auto) 15.0 % (0.0-3.0) H Basophils (%) (Auto) 0.9 % (0.0-2.0) Sodium Level 146 MMOL/L (136-145) H Potassium Level 3.2 MMOL/L (3.5-5.1) L Chloride Level 109 MMOL/L (98-107) H Carbon Dioxide Level 27 MMOL/L (21-32) Anion Gap 10 mmol/L (5-15) Blood Urea Nitrogen 12 mg/dL (7-18) Creatinine 0.8 MG/DL (0.55-1.30) Estimat Glomerular Filtration Rate mL/min (>60) Glucose Level 78 MG/DL (74-106) Calcium Level 9.7 MG/DL (8.5-10.1) Carcinoembryonic Antigen Pending Filsoof,Kosta Chu MD Jul 19, 2019 09:54
[2019-07-19] MEDS: Timolol 0.5% Op Soln 2.5ml BOTH EYES SCH ×2 (10:46→18:49)
[2019-07-19] MEDS: Atenolol 25mg tab ORAL SCH (10:46)
[2019-07-19] MEDS: Sertraline 100mg tab ORAL SCH (10:46)
[2019-07-19] MEDS: OLANZapine 2.5mg tab ORAL SCH (10:46)
[2019-07-19] MEDS: Docusate 100mg cap ORAL SCH ×2 (10:47→18:50)
[2019-07-19] MEDS: Doxycycline Monohydrate 100mg ORAL SCH ×2 (10:47→20:52)
[2019-07-19] MEDS: Heparin 5000 units/ml inj SUBQ SCH ×2 (10:50→20:53)
--- NOTE | 2019-07-19 10:53 | NUR ---
NURSE NOTES: Dr. Putnam and Dr. Hardin notified of K level 3.2. Order received from Dr. Hardin for KCL 40 MEQ POx1. Order in place from Dr. Putnam for IVF D5 1/2 + 20 KCL at 75 ml/hr to start at 1600 for colonoscopy prep. Will follow as ordered, see eMAR.
[2019-07-19 12:00] VITALS: BP 112/84
--- NOTE | 2019-07-19 12:50 | Infectious Diseases Prog Note ---
Assessment/Plan Assessment/Plan IMPRESSION: 1. Bronchitis. 2. Hypertension. 3. Arthritis. 4. Anemia. 5. Diastolic congestive heart failure. 6. Low back pain. 7. Spinal compression fracture. 8. Hyperlipidemia. RECOMMENDATION: 1. discontinue ceftriaxone . 2 Continue doxycycline X 1 day Subjective ROS Limited/Unobtainable: No Constitutional: Reports: no symptoms Respiratory: Reports: no symptoms Cardiovascular: Reports: no symptoms Gastrointestinal/Abdominal: Reports: no symptoms Genitourinary: Reports: no symptoms Allergies: Coded Allergies: No Known Allergies (Unverified , 05/21/18) Objective Vital Signs Last 24 Hour Vital Signs Date Time Temp Pulse Resp B/P (MAP) Pulse Ox O2 Delivery O2 Flow Rate FiO2 07/19/19 10:47 90 124/86 07/19/19 10:46 90 124/86 07/19/19 08:00 98.1 90 18 124/86 (99) 95 07/19/19 04:00 97.3 72 18 137/72 (93) 96 07/19/19 00:00 97.9 78 18 134/76 (95) 97 07/18/19 22:33 98.2 07/18/19 22:15 98.2 07/18/19 20:52 Room Air 07/18/19 20:00 98.2 82 18 138/82 (100) 96 07/18/19 16:08 99.3 07/18/19 16:00 98.7 85 16 128/77 (94) 97 Height (Feet): 5 Height (Inches): 0.00 Weight (Pounds): 162 General Appearance: no acute distress HEENT: mucous membranes moist Respiratory/Chest: lungs clear Cardiovascular: normal rate Abdomen: soft, non tender Extremities: no edema Neurologic/Psychiatric: alert, responsive Laboratory Tests Test 07/19/19 05:05 White Blood Count 6.8 K/UL (4.8-10.8) Red Blood Count 3.54 M/UL (4.20-5.40) L Hemoglobin 10.5 G/DL (12.0-16.0) L Hematocrit 31.8 % (37.0-47.0) L Mean Corpuscular Volume 90 FL (80-99) Mean Corpuscular Hemoglobin 29.6 PG (27.0-31.0) Mean Corpuscular Hemoglobin Concent 33.0 G/DL (32.0-36.0) Red Cell Distribution Width 13.2 % (11.6-14.8) Platelet Count 231 K/UL (150-450) Mean Platelet Volume 6.8 FL (6.5-10.1) Neutrophils (%) (Auto) 45.2 % (45.0-75.0) Lymphocytes (%) (Auto) 31.7 % (20.0-45.0) Monocytes (%) (Auto) 7.2 % (1.0-10.0) Eosinophils (%) (Auto) 15.0 % (0.0-3.0) H Basophils (%) (Auto) 0.9 % (0.0-2.0) Sodium Level 146 MMOL/L (136-145) H Potassium Level 3.2 MMOL/L (3.5-5.1) L Chloride Level 109 MMOL/L (98-107) H Carbon Dioxide Level 27 MMOL/L (21-32) Anion Gap 10 mmol/L (5-15) Blood Urea Nitrogen 12 mg/dL (7-18) Creatinine 0.8 MG/DL (0.55-1.30) Estimat Glomerular Filtration Rate mL/min (>60) Glucose Level 78 MG/DL (74-106) Calcium Level 9.7 MG/DL (8.5-10.1) Carcinoembryonic Antigen Pending Current Medications Medications (Trade) Dose Ordered Sig/Ethan Route PRN Reason Start Time Stop Time Status Last Admin Dose Admin Acetaminophen (Tylenol) 650 mg Q6H PRN ORAL Mild Pain/Temp > 100.5 07/18/19 15:00 08/14/19 14:59 07/18/19 15:38 Acetaminophen/ Hydrocodone Bitart ([place] 10/325) 1 tab Q6H PRN ORAL For Pain 4-10 07/18/19 15:00 07/22/19 14:59 07/18/19 21:45 Al Hydroxide/Mg Hydroxide (Mylanta) 30 ml BIDPRN PRN ORAL Abdominal cramps 07/18/19 15:00 08/14/19 14:59 Amlodipine Besylate (Norvasc) 10 mg DAILY ORAL 07/19/19 09:00 08/15/19 08:59 07/19/19 10:47 Atenolol (Tenormin) 25 mg DAILY ORAL 07/19/19 09:00 08/15/19 08:59 07/19/19 10:46 Ceftriaxone Sodium 1 gm/ Dextrose 55 ml @ 110 mls/hr Q24H IVPB 07/18/19 22:00 07/22/19 21:59 07/18/19 22:00 Dextrose/ Electrolytes 1,000 ml @ 75 mls/hr [id number] IV 07/19/19 16:00 08/18/19 15:59 Docusate Sodium (Colace) 100 mg TWICE A DAY ORAL 07/18/19 18:00 08/15/19 08:59 07/19/19 10:47 Doxycycline Monohydrate (Doxycycline Monohydrate) 100 mg EVERY 12 HOURS ORAL 07/18/19 21:00 07/22/19 20:59 07/19/19 10:47 EZETIMIBE (Zetia) 10 mg BEDTIME ORAL 07/18/19 21:00 08/14/19 20:59 07/18/19 21:32 Heparin Sodium (Porcine) (Heparin 5000 units/ml) 5,000 units EVERY 12 HOURS SUBQ 07/18/19 21:00 08/14/19 20:59 07/19/19 10:50 Iron Sucrose 100 mg/Sodium Chloride 60 ml @ 240 mls/hr QHS IV 07/18/19 21:00 07/21/19 21:14 07/18/19 21:59 Magnesium Hydroxide (Mom) 30 ml BEDTIME PRN ORAL Constipation 07/18/19 21:00 08/14/19 19:14 Olanzapine (ZyPREXA) 2.5 mg DAILY ORAL 07/19/19 09:00 08/15/19 08:59 07/19/19 10:46 Ondansetron HCl (Zofran) 4 mg Q6H PRN ORAL Nausea & Vomiting 07/18/19 15:00 08/14/19 14:59 Polyethylene Glycol/ Electrolytes (Nulytely) 4,000 ml ONCE ONCE ORAL 07/19/19 14:00 07/19/19 14:01 Pravastatin Sodium (Pravachol) 80 mg QHS ORAL 07/18/19 21:00 08/14/19 20:59 07/18/19 21:32 Sertraline HCl (Zoloft) 100 mg DAILY ORAL 07/19/19 09:00 08/15/19 08:59 07/19/19 10:46 Timolol Maleate (Timoptic 0.5% Op Soln) 1 drop BID BOTH EYES 07/18/19 18:00 08/15/19 08:59 07/19/19 10:46 Tizanidine HCl (Zanaflex) 4 mg BEDTIME ORAL 07/18/19 21:00 08/14/19 20:59 07/18/19 21:34 Jonh Joel MD Jul 19, 2019 12:50
[2019-07-19] MEDS ORDERED: Nulytely 4L ORAL ONE (14:00)
[2019-07-19 16:00] VITALS: BP 121/71
[2019-07-19] MEDS: D5 1/2NS w/KCl 20mEq 1,000 ML IV SCH (16:06)
--- NOTE | 2019-07-19 16:56 | NUR ---
NURSE NOTES: Spoke with Rohini in Pharmacy, regarding patient requesting [place] 10 mg at this time and last dose of Tylenol 2 tabs was given at 1423. Okay to give [place] 10 mg one tablet at this time.
[2019-07-19] MEDS: HYDROcodone/Acetamin 10/325 tab ORAL PRN (16:59)
--- NOTE | 2019-07-19 17:00 | NUR ---
NURSE NOTES: Patient started NuLytely Bowel Prep at 1450, completed first liter at 1550, started second liter at 1600, tolerating well, no NV, IVF (D5 1/2 +20 KCL @75 ml/hr) started as ordered, see eMAR. Patient sitting up on BSC, has had 3 soft, brown, moderate amount. Complains of abdominal cramping, medicated with [place] 10 mg one tablet. Will continue to monitor, will endorse to next shift.
--- NOTE | 2019-07-19 19:17 | NUR ---
HAND-OFF: Report given to Thais LIMA. Endorsed that patient will start Nulytely at scheduled time 1999, will drink 2 liters of remaining prep solution for Colonoscopy/EGD for tomorrow.
[2019-07-19 20:00] VITALS: BP 136/80
--- NOTE | 2019-07-19 20:00 | NUR ---
NURSE NOTES: RECEIVED PATIENT LYING IN BED, AWAKE, ALERT/ORIENTED X3, [place] SPEAKING, ABLE TO VERBALIZE SIMPLE NEEDS IN YI, NO SIGNS AND SYMPTOMS OF ACUTE CARDIO RESPIRATORY DISTRESS/SHORTNESS OF BREATH, DENIES CHEST PAIN. COLONOSCOPY/EGD SCHEDULED FOR 07/20, MANOJLY PREP ONGOING, TOLERATING WELL, CONSENTS SIGNED BY PATIENT. POTASSIUM 3.2 RECEIVED PO/IV SUPPLEMENT. IV FLUIDS INFUSING RIGHT FOREARM/GAUGE 22, NO REDNESS/SWELLING NOTED TO SITE. SIDE RAILS UP X2 FOR MOBILITY, BED IN LOWEST POSITION FOR SAFETY. CALL LIGHT WITHIN REACH. HOURLY ROUNDING FOR SAFETY/NEEDS. NAD.
[2019-07-19] MEDS: Iron Sucrose 100 MG in NS 55 ML IV SCH (20:45)
--- NOTE | 2019-07-19 22:20 | General Progress Note ---
Assessment/Plan Status: stable Assessment/Plan: fever cough chf chronic back pain anemia diabetes abx per ID fup culture reutls pulmonay hygine diuresis diastolic dysfuntion echo noted EF 65% on venofer GI eval appreciated planning on colonospsaturday PT ambulate dvt and ulcer rpohylaxis Subjective Allergies: Coded Allergies: No Known Allergies (Unverified , 05/21/18) Subjective overall feels better no chest painbreathing improved dw Dr Chambers planning on doing colonpsy due to anemia tomorrow Objective Last 24 Hour Vital Signs Date Time Temp Pulse Resp B/P (MAP) Pulse Ox O2 Delivery O2 Flow Rate FiO2 07/19/19 21:50 98.2 07/19/19 21:00 Room Air 07/19/19 20:00 98.9 86 20 136/80 (98) 100 07/19/19 16:30 Room Air 07/19/19 16:00 98.2 81 20 121/71 (88) 97 07/19/19 12:00 97.3 83 18 112/84 (93) 95 07/19/19 10:47 90 124/86 07/19/19 10:46 90 124/86 07/19/19 09:00 Room Air 07/19/19 08:00 98.1 90 18 124/86 (99) 95 07/19/19 04:00 97.3 72 18 137/72 (93) 96 07/19/19 00:00 97.9 78 18 134/76 (95) 97 Intake and Output 07/18/19 07/19/19 18:59 06:59 Intake Total 780 ml 355 ml Output Total 200 ml Balance 580 ml 355 ml Intake Oral 780 ml 240 ml IV Total 115 ml Output Urine Total 200 ml # Voids 1 2 # Bowel Movements 1 1 Laboratory Tests 07/19/19 05:05: White Blood Count 6.8, Red Blood Count 3.54L, Hemoglobin 10.5L, Hematocrit 31.8L , Mean Corpuscular Volume 90, Mean Corpuscular Hemoglobin 29.6, Mean Corpuscular Hemoglobin Concent 33.0, Red Cell Distribution Width 13.2, Platelet Count 231, Mean Platelet Volume 6.8, Neutrophils (%) (Auto) 45.2, Lymphocytes (% ) (Auto) 31.7, Monocytes (%) (Auto) 7.2, Eosinophils (%) (Auto) 15.0H, Basophils (%) (Auto) 0.9, Sodium Level 146H, Potassium Level 3.2L, Chloride Level 109H, Carbon Dioxide Level 27, Anion Gap 10, Blood Urea Nitrogen 12, Creatinine 0.8, Estimat Glomerular Filtration Rate , Glucose Level 78, Calcium Level 9.7, Carcinoembryonic Antigen [Pending] Height (Feet): 5 Height (Inches): 0.00 Weight (Pounds): 162 General Appearance: WD/WN, no apparent distress Neck: supple Cardiovascular: normal rate Respiratory/Chest: lungs clear Aman Hardin MD Jul 19, 2019 22:20
[2019-07-20] VITALS (11 sets, daily range): BP systolic 93–144; BP diastolic 53–91
[2019-07-20] MEDS: HYDROcodone/Acetamin 10/325 tab ORAL PRN (03:10)
--- NOTE | 2019-07-20 05:26 | NUR ---
NURSE NOTES: STOOL LIGHT BROWN LIQUID WITH PARTICLES-
--- NOTE | 2019-07-20 06:02 | NUR ---
NURSE NOTES: NPO PENDING EGD/COLONOSCOPY-
--- NOTE | 2019-07-20 06:03 | NUR ---
NURSE NOTES: RESTED WELL, NO SIGNIFICANT CHANGE OF CONDITION NOTED THROUGHOUT THE NIGHT. SAFETY MAINTAINED. NAD.
[2019-07-20 06:33] LABS: EOSINOPHILS % (AUTO) 13.5 % (0.0-3.0); HEMATOCRIT 32.4 % (37.0-47.0); HEMOGLOBIN 10.8 G/DL (12.0-16.0); MEAN CORPUSCULAR VOLUME 89 FL (80-99); MONOCYTES % (AUTO) 6.3 % (1.0-10.0); NEUTROPHILS % (AUTO) 53.2 % (45.0-75.0); PLATELET COUNT 227 K/UL (150-450); RED BLOOD COUNT 3.63 M/UL (4.20-5.40); RED CELL DISTRIBUTION WIDTH 13.2 % (11.6-14.8); WHITE BLOOD COUNT 7.5 K/UL (4.8-10.8)
[2019-07-20 06:52] LABS: ANION GAP 10 mmol/L (5-15); BLOOD UREA NITROGEN 8 mg/dL (7-18); CALCIUM 9.8 MG/DL (8.5-10.1); CARBON DIOXIDE 24 MMOL/L (21-32); CHLORIDE 111 MMOL/L (98-107); CREATININE 0.7 MG/DL (0.55-1.30); POTASSIUM 3.5 MMOL/L (3.5-5.1); SODIUM 145 MMOL/L (136-145)
--- NOTE | 2019-07-20 07:05 | Anethesia Preoperative Eval ---
Anesthesia Pre-op PMH/ROS General Date of Evaluation: Jul 20, 2019 Time of Evaluation: 07:05 Anesthesiologist: calin ASA Score: ASA 4 Mallampati Score Class I : Soft palate, uvula, fauces, pillars visible Class II: Soft palate, uvula, fauces visible Class III: Soft palate, base of uvula visible Class IV: Only hard plate visible Mallampati Classification: Class II Surgeon: isaiah Diagnosis: nausea,vomiting, diarhhea Surgical Procedure: egd/colonoscopy Anesthesia History: none Social History: smoking - nonsmoker Family History: no anesthesia problems Allergies: Coded Allergies: No Known Allergies (Unverified , 05/21/18) Medications: see eMAR Patient NPO?: Yes Past Medical History Cardiovascular: Reports: HTN, other - hypercholesterolemia, chf Pulmonary: Reports: other - sob Gastrointestinal/Genitourinary: Reports: GERD, other - fibroids, abnormal uterine bleeding, pyelonephritis Neurologic/Psychiatric: Reports: depression/anxiety HEENT: Reports: cataract (L), cataract (R), glaucoma Hematology/Immune: Reports: anemia, other - iron deficiency Musculoskeletal/Integumentary: Reports: OA, other - dog-bite wound, osteoporosis, back injury Anesthesia Pre-op Phys. Exam Physician Exam Last Vital Signs Date Time Temp Pulse Resp B/P (MAP) Pulse Ox O2 Delivery O2 Flow Rate FiO2 07/20/19 04:00 97.8 84 18 128/85 (99) 97 07/19/19 21:00 Room Air 07/15/19 17:09 21 Constitutional: NAD Neurologic: CN 2-12 intact Cardiovascular: RRR Respiratory: CTA Gastrointestinal: S/NT/ND Airway Exam Mallampati Score: Class II MO: limited Neck: short TMD: 2fb ROM: limited Teeth: missing Anesthesia Pre-op A/P Labs Hematology Test 07/20/19 04:45 White Blood Count Pending Red Blood Count Pending Hemoglobin Pending Hematocrit Pending Mean Corpuscular Volume Pending Mean Corpuscular Hemoglobin Pending Mean Corpuscular Hemoglobin Concent Pending Red Cell Distribution Width Pending Platelet Count Pending Mean Platelet Volume Pending Neutrophils (%) (Auto) Pending Lymphocytes (%) (Auto) Pending Monocytes (%) (Auto) Pending Eosinophils (%) (Auto) Pending Basophils (%) (Auto) Pending Chemistry Test 8/19/19 04:45 Sodium Level 145 MMOL/L (136-145) Potassium Level 3.5 MMOL/L (3.5-5.1) Chloride Level 111 MMOL/L (98-107) H Carbon Dioxide Level 24 MMOL/L (21-32) Anion Gap 10 mmol/L (5-15) Blood Urea Nitrogen 8 mg/dL (7-18) Creatinine 0.7 MG/DL (0.55-1.30) Estimat Glomerular Filtration Rate mL/min (>60) Glucose Level 90 MG/DL (74-106) Calcium Level 9.8 MG/DL (8.5-10.1) Magnesium Level Pending Risk Assessment & Plan Assessment: asa4 Plan: mac Status Change Before Surgery: No Pre-Antibiotics Drug: Ileana Iverson MD Jul 20, 2019 07:05
--- NOTE | 2019-07-20 07:14 | NUR ---
HAND-OFF: Report given to CLARENCE LIU.
[2019-07-20] MEDS ORDERED: fentaNYL 100 mcg/2 mL IV PRN (07:15)
[2019-07-20] MEDS ORDERED: Atropine Inj 1mg/10ml Syr IV PRN (07:15)
[2019-07-20] MEDS ORDERED: Midazolam 2mg/2ml Inj IVP PRN (07:15)
[2019-07-20] MEDS ORDERED: DiphenhydrAMINE 50mg/ml Inj IVP PRN (07:15)
--- NOTE | 2019-07-20 07:23 | NUR ---
NURSE NOTES: Received report from CLARENCE Plascencia. Pt is resting in bed. She is alert and oriented X4. Bed is in lowest position, side rails up X2, and call light is within reach. WIll continue to monitor.
[2019-07-20] MEDS: D5 1/2NS w/KCl 20mEq 1,000 ML IV SCH (07:26)
[2019-07-20] MEDS: Heparin 5000 units/ml inj SUBQ SCH (08:26)
[2019-07-20] MEDS: Docusate 100mg cap ORAL SCH (08:26)
[2019-07-20] MEDS: Sertraline 100mg tab ORAL SCH (08:29)
[2019-07-20] MEDS: Doxycycline Monohydrate 100mg ORAL SCH (08:29)
[2019-07-20] MEDS: Timolol 0.5% Op Soln 2.5ml BOTH EYES SCH (08:29)
[2019-07-20] MEDS: OLANZapine 2.5mg tab ORAL SCH (08:29)
--- NOTE | 2019-07-20 08:35 | NUR ---
NURSE NOTES: Pt wants to take only 3 of her medications prior to her procedure. Per pt, "I can take the other meds later".
--- NOTE | 2019-07-20 08:46 | NUR ---
NURSE NOTES: Pt left floor for procedure
[2019-07-20] MEDS ORDERED: NS 500ML IVPB ONE (08:55)
[2019-07-20] MEDS ORDERED: Lidocaine 1% MPF 10mg/ml 5ml ONE (09:00)
[2019-07-20] MEDS ORDERED: Propofol 200mg/20ml IV ONE (09:00)
--- NOTE | 2019-07-20 09:03 | Pre-Procedure Note/Attestation ---
Pre-Procedure Note/Attestation Complete Prior to Procedure Planned Procedure: not applicable Procedure Narrative: esophagogastroduodenoscopy and colonoscopy Indications for Procedure Pre-Operative Diagnosis: anemia Attestation I attest that I discussed the nature of the procedure; its benefits; risks and complications; and alternatives (and the risks and benefits of such alternatives ), prior to the procedure, with the patient (or the patient's legal apprenticeship representative). I attest that, if there was a reasonable possibility of needing a blood transfusion, the patient (or the patient's legal apprenticeship representative) was given the [facility] standardized written summary, pursuant to the Ariel Selena Blood Safety Act ([place] Health and Safety Code # 1645, as amended). I attest that I re-evaluated the patient just prior to the surgery and that there has been no change in the patient's H&P, except as documented below: Baltazar Putnam MD Jul 20, 2019 09:03
--- NOTE | 2019-07-20 09:30 | Endoscopy Procedure Note ---
Endoscopy Procedure Note General Indication for Procedure: anemia Procedures Performed: EGD, colonoscopy Operative Findings/Diagnosis: gastritis, one colon polyp Specimen: yes Pt Tolerated Procedure Well: Yes Estimated Blood Loss: none Anesthesia Anesthesiologist: keara Anesthesia: MAC Inserted Devices Implant(s) used?: No Quality Quality of Bowel Preparation: Good Did scope reach the cecum?: Yes Was there any complications?: No GI Core Measures 50 yrs or older w/o bx or poly: Not Applicable 10yrs. F/U recommended: Not Applicable Baltazar Putnam MD Jul 20, 2019 09:30
--- NOTE | 2019-07-20 09:41 | NUR ---
NURSE NOTES: Received call from Dr. Hardin. Per sylvie GORDON to ma patient home. Orders noted and carried out.
[2019-07-20] MEDS: Atenolol 25mg tab ORAL SCH (09:47)
--- NOTE | 2019-07-20 09:47 | Immediate Post-Op Evaluation ---
Immediate Post-Op Evalulation Immediate Post-Op Evalulation Procedure: egd/colonoscopy/bx Date of Evaluation: Jul 20, 2019 Time of Evaluation: 09:44 IV Fluids: 125ml 0.9ns Blood Products: none Estimated Blood Loss: negligible Blood Pressure Systolic: 124 Blood Pressure Diastolic: 89 Pulse Rate: 93 Respiratory Rate: 18 O2 Sat by Pulse Oximetry: 97 Temperature (Fahrenheit): 98.1 Pain Score (1-10): 0 Nausea: No Vomiting: No Complications none Patient Status: awake, reacts, patent Hydration Status: adequate Drug: Ileana Iverson MD Jul 20, 2019 09:47
--- NOTE | 2019-07-20 09:48 | 48 Hour Post Anesthesia Eval ---
Post Anesthesia Evaluation Procedure: egd/colonoscopy/bx Date of Evaluation: Jul 20, 2019 Time of Evaluation: 09:46 Blood Pressure Systolic: 141 0: 91 Pulse Rate: 85 Respiratory Rate: 18 Temperature (Fahrenheit): 98.1 O2 Sat by Pulse Oximetry: 97 Airway: patent Nausea: No Vomiting: No Pain Intensity: 0 Hydration Status: adequate Cardiopulmonary Status: stable Mental Status/LOC: patient returned to baseline Post-Anesthesia Complications: none Follow-up care needed: N/A Ileana Crum MD Jul 20, 2019 09:47
[2019-07-20] MEDS ORDERED: Tubing IV Secondary IV ONE ×2 (10:01)
--- NOTE | 2019-07-20 10:49 | NUR ---
NURSE NOTES: Called patients daughter, Lesia. Per daughter, she will be able to pick her up at 1pm. She wll call us when she is close.
--- NOTE | 2019-07-20 11:27 | Infectious Diseases Prog Note ---
Assessment/Plan Assessment/Plan antibiotics : doxycycline A 1. pneumonia 2. bronchitis 3. hypertension 4. CHF P 1. continue doxycycline 1 more day 2. will follow up clinically Subjective ROS Limited/Unobtainable: Yes Allergies: Coded Allergies: No Known Allergies (Unverified , 05/21/18) Objective Vital Signs Last 24 Hour Vital Signs Date Time Temp Pulse Resp B/P (MAP) Pulse Ox O2 Delivery O2 Flow Rate FiO2 07/20/19 10:59 98.3 97 20 144/89 (107) 97 07/20/19 10:06 97.6 83 19 138/86 98 Room Air 07/20/19 09:55 86 18 130/90 97 Room Air 07/20/19 09:50 87 17 143/88 97 Room Air 07/20/19 09:40 85 15 141/91 96 Room Air 07/20/19 09:32 98.1 93 18 124/89 97 Room Air 07/20/19 09:00 Room Air 07/20/19 08:00 98.5 91 20 133/81 (98) 94 07/20/19 04:00 97.8 84 18 128/85 (99) 97 07/20/19 03:40 97.8 07/20/19 00:14 72 124/62 (82) 07/20/19 00:00 97.8 73 18 93/53 (66) 98 07/19/19 21:50 98.2 07/19/19 21:00 Room Air 07/19/19 20:00 98.9 86 20 136/80 (98) 100 07/19/19 16:30 Room Air 07/19/19 16:00 98.2 81 20 121/71 (88) 97 07/19/19 12:00 97.3 83 18 112/84 (93) 95 Height (Feet): 5 Height (Inches): 0.00 Weight (Pounds): 165 Respiratory/Chest: lungs clear Cardiovascular: normal rate, regular rhythm, no gallop/murmur Abdomen: soft, non tender Extremities: no edema Laboratory Tests Test 07/20/19 04:45 White Blood Count 7.5 K/UL (4.8-10.8) Red Blood Count 3.63 M/UL (4.20-5.40) L Hemoglobin 10.8 G/DL (12.0-16.0) L Hematocrit 32.4 % (37.0-47.0) L Mean Corpuscular Volume 89 FL (80-99) Mean Corpuscular Hemoglobin 29.7 PG (27.0-31.0) Mean Corpuscular Hemoglobin Concent 33.3 G/DL (32.0-36.0) Red Cell Distribution Width 13.2 % (11.6-14.8) Platelet Count 227 K/UL (150-450) Mean Platelet Volume 6.1 FL (6.5-10.1) L Neutrophils (%) (Auto) 53.2 % (45.0-75.0) Lymphocytes (%) (Auto) 26.0 % (20.0-45.0) Monocytes (%) (Auto) 6.3 % (1.0-10.0) Eosinophils (%) (Auto) 13.5 % (0.0-3.0) H Basophils (%) (Auto) 1.0 % (0.0-2.0) Sodium Level 145 MMOL/L (136-145) Potassium Level 3.5 MMOL/L (3.5-5.1) Chloride Level 111 MMOL/L (98-107) H Carbon Dioxide Level 24 MMOL/L (21-32) Anion Gap 10 mmol/L (5-15) Blood Urea Nitrogen 8 mg/dL (7-18) Creatinine 0.7 MG/DL (0.55-1.30) Estimat Glomerular Filtration Rate mL/min (>60) Glucose Level 90 MG/DL (74-106) Calcium Level 9.8 MG/DL (8.5-10.1) Magnesium Level 1.4 MG/DL (1.8-2.4) L Current Medications Medications (Trade) Dose Ordered Sig/Ethan Route PRN Reason Start Time Stop Time Status Last Admin Dose Admin Acetaminophen (Tylenol) 650 mg Q4H PRN ORAL Mild Pain (Pain Scale 1-3) 07/20/19 07:15 07/20/19 16:00 Acetaminophen (Tylenol) 650 mg Q6H PRN ORAL Mild Pain/Temp > 100.5 07/18/19 15:00 08/14/19 14:59 07/19/19 14:25 Acetaminophen/ Hydrocodone Bitart (Clayton 10/325) 1 tab Q6H PRN ORAL For Pain 4-10 07/18/19 15:00 07/22/19 14:59 07/20/19 03:10 Al Hydroxide/Mg Hydroxide (Mylanta) 30 ml BIDPRN PRN ORAL Abdominal cramps 07/18/19 15:00 08/14/19 14:59 Amlodipine Besylate (Norvasc) 10 mg DAILY ORAL 07/19/19 09:00 08/15/19 08:59 07/19/19 10:47 Atenolol (Tenormin) 25 mg DAILY ORAL 07/19/19 09:00 08/15/19 08:59 07/19/19 10:46 Atropine Sulfate (Atropine) 0.5 mg Q5M PRN IV bpm less than 45 07/20/19 07:15 07/20/19 16:00 Dextrose/ Electrolytes 1,000 ml @ 75 mls/hr [id number] IV 07/19/19 16:00 08/18/19 15:59 07/20/19 07:26 Diphenhydramine HCl (Benadryl) 25 mg Q15M PRN IVP Itching 07/20/19 07:15 07/20/19 16:00 Docusate Sodium (Colace) 100 mg TWICE A DAY ORAL 07/18/19 18:00 08/15/19 08:59 07/19/19 18:50 Doxycycline Monohydrate (Doxycycline Monohydrate) 100 mg EVERY 12 HOURS ORAL 07/18/19 21:00 07/22/19 20:59 07/20/19 08:29 EZETIMIBE (Zetia) 10 mg BEDTIME ORAL 07/18/19 21:00 08/14/19 20:59 07/19/19 20:52 Fentanyl Citrate (Sublimaze 100 mcg/2 mL) 25 mcg Q10M PRN IV Moderate Pain (Pain Scale 4-6) 07/20/19 07:15 07/20/19 16:00 Heparin Sodium (Porcine) (Heparin 5000 units/ml) 5,000 units EVERY 12 HOURS SUBQ 07/18/19 21:00 08/14/19 20:59 07/19/19 20:53 Hydralazine HCl (Apresoline) 5 mg Q30M PRN IV SBP>160 OR___/DBP>90 OR___ 07/20/19 07:15 07/20/19 16:00 Iron Sucrose 100 mg/Sodium Chloride 60 ml @ 240 mls/hr QHS IV 07/18/19 21:00 07/21/19 21:14 07/19/19 20:45 Magnesium Hydroxide (Mom) 30 ml BEDTIME PRN ORAL Constipation 07/18/19 21:00 08/14/19 19:14 Midazolam HCl (Versed 2mg/2ml vial) 1 mg Q15M PRN IVP For Anxiety 07/20/19 07:15 07/20/19 16:00 Olanzapine (ZyPREXA) 2.5 mg DAILY ORAL 07/19/19 09:00 08/15/19 08:59 07/20/19 08:29 Ondansetron HCl (Zofran) 4 mg Q1H PRN IVP Nausea & Vomiting 07/20/19 07:15 07/20/19 16:00 Ondansetron HCl (Zofran) 4 mg Q6H PRN ORAL Nausea & Vomiting 07/18/19 15:00 08/14/19 14:59 Pravastatin Sodium (Pravachol) 80 mg QHS ORAL 07/18/19 21:00 08/14/19 20:59 07/19/19 20:52 Sertraline HCl (Zoloft) 100 mg DAILY ORAL 07/19/19 09:00 08/15/19 08:59 07/20/19 08:29 Timolol Maleate (Timoptic 0.5% Op Soln) 1 drop BID BOTH EYES 07/18/19 18:00 08/15/19 08:59 07/20/19 08:29 Tizanidine HCl (Zanaflex) 4 mg BEDTIME ORAL 07/18/19 21:00 08/14/19 20:59 07/19/19 20:51 Martha Ferreira MD Jul 20, 2019 11:27
--- NOTE | 2019-07-20 12:02 | NUR ---
NURSE NOTES: Medication that pt brought from home was picked up at pharmacy and returned to patient.
--- NOTE | 2019-07-20 13:08 | NUR ---
NURSE NOTES: Patient was discharged per MD orders. IV removed. No redness or swelling noted. Belongings accounted for Signed belongings list is in chart. Medication picked up from pharmacy and it was given to patient. Pt stable at time of DC.
--- NOTE | 2019-07-20 14:18 | NUR ---
SPEECH PATHOLOGY: IMPRESSION: EFFICACY OF OROPHARYNGEAL PHASE OF SWALLOW INTACT [id number]: PATIENT CAUTIONED NOT TO EAT WHEN/IF SOB. SHE CONCURRED D/C PENDING TO HOME. NO FURTHER SKILLED ST SERVICES APPEAR TO BE NEEDED AT THIS TIME.
--- NOTE | 2019-07-20 15:15 | Procedure Note ---
DATE OF PROCEDURE: 07/20/2019 SURGEON: Baltazar Putnam M.D. PROCEDURE: Upper endoscopy with biopsy and colonoscopy. ANESTHESIA: Per Dr. Ellington. INSTRUMENT: Olympus adult flexible upper endoscope and colonoscope. INDICATION: Anemia, stool OB positive. REASON FOR PROCEDURE: The procedure, risks, benefits, and possible consequences, including hemorrhage, aspiration, perforation and infection, and alternative treatments, were explained to the patient/legal guardian by Dr. Baltazar Putnam and the patient/legal guardian understood and accepted these risks. PROCEDURE IN DETAIL: After informed consent was obtained and the patient was adequately sedated, Olympus upper endoscope was advanced from mouth into the second portion of the duodenum and retroflexion was performed in the stomach. The patient had evidence of diffuse gastritis. Random biopsy from antrum was obtained to rule out H. pylori infection. Otherwise, the rest of upper endoscopic examination was within normal limits. At this time, the upper endoscope was retrieved and the patient was turned over for colonoscopy. First, rectal exam was performed, which was normal. Then, the scope was advanced from rectum into the cecum documented by appendiceal orifice, ileocecal valve, and right upper quadrant palpation. Quality of prep was very good. The patient had one sessile polyp in the sigmoid colon roughly measured about 6 mm, removed with cold snare polypectomy technique. The rest of the examination grossly looked within normal limit. Retroflexion of rectum was performed, which showed evidence of small nonbleeding internal hemorrhoids. SUMMARY OF FINDINGS: 1. Gastritis, status post biopsy. 2. One colonic polyp removed, see above for details. 3. Internal hemorrhoids. RECOMMENDATIONS: Follow up pathology and treat accordingly. Given stool OB positive, iron deficiency anemia. We recommend outpatient capsule endoscopy for evaluation of the small intestine source for bleeding. We are going to advance her diet. I want to thank Dr. Aman Hardin, for this kind referral. Baltazar Putnam M.D. DR: WESLEY JOB#: [id number] CC: Aman Hardin M.D.; Fax#: [phone]
--- NOTE | 2019-07-20 19:17 | Cardiology Report ---
APPROVED REPORT EXAM: Two-dimensional and M-mode echocardiogram with Doppler and color Doppler. INDICATION Chest Pain M-Mode DIMENSIONS IVSd1.2 (0.7-1.1cm)Left Atrium (MM)4.2 (1.6-4.0cm) LVDd4.7 (3.5-5.6cm)Aortic Root2.7 (2.0-3.7cm) PWd0.9 (0.7-1.1cm)Aortic Cusp Exc.1.9 (1.5-2.0cm) IVSs1.5 cm LVDs3.0 (2.5-4.0cm) PWs1.2 cm Normal left ventricular chamber size, systolic function and wall motion. Left ventricular ejection fraction estimated to be 60-65 %. No left ventricular hypertrophy. No evidence of pericardial effusion. All other cardiac chamber sizes are within normal limits. Focal aortic valve sclerosis with adequate cusp excursion. Thickened mitral valve leaflets with normal excursion. Mitral annulus and aortic root calcification. Pulmonic valve not obtained. Normal tricuspid valve structure. IVC measured at 2.1 cm with slight physiologic collapse, suggestive of increased RA pressure. A color flow and spectral Doppler study was performed and revealed: No aortic regurgitation. reduced left ventricular relaxation c/w impaired relaxation diastolic dysfunction. Trace mitral regurgitation. Mild tricuspid regurgitation. Tricuspid systolic velocities suggests peak right ventricular systolic pressure of 45 mmHg, consistent with moderate pulmonary hypertension.
--- NOTE | 2019-07-20 19:58 | Cardiology Report ---
APPROVED REPORT EKG Measurement Heart [id number] OH 160P-2 [id number] Normal sinus rhythm Normal ECG
--- NOTE | 2019-07-21 09:39 | Discharge Summary ---
Discharge Summary Discharge Summary _ DATE OF ADMISSION: 07/15/2019 DATE OF DISCHARGE: 07/20/2019 DISCHARGED BY:Dr. Hardin REASON FOR ADMISSION: 74 years old female with past medical history of hypertension, hyperlipidemia, chronic back pain, arthritis, compression fracture of the spine, osteoporosis, presented to emergency department with complaints of fever, chills ,cough, dyspnea, and wheezing. She denied chest pain. She denied sore throat or headache. No abdominal pain , no urinary complaints . She reported body aches. Upon evaluation vital signs were stable. Laboratory work-up revealed no leukocytosis, hemoglobin 10.1, hematocrit 29.7. Stable electrolytes. BUN 27, creatinine 1.2. Stable LFT. Troponin negative. pro BNP 1440. EKG revealed normal sinus rhythm , no acute ischemic changes Albumin 3.3. Chest x-ray revealed right basilar pathology :pleural effusion or pneumonia. Patient received 1 dose of Lasix in the emergency department. Patient was admitted to telemetry flood for further management. CONSULTANTS: production line Dr. Lawson pulmonary Dr. Robb ID specialist Dr. Jaimes GI specialist Dr. Putnam [facility]SE: Patient admitted to telemetry floor. Patient started on empiric antibiotics for possible pneumonia. Echocardiogram revealed preserved ejection fraction of 60 to 65% with no evidence of wall motion abnormality. No evidence of left ventricular hypertrophy. Right ventricular systolic pressure of 45, consistent with moderate pulmonary hypertension. Reduced left ventricular relaxation was consistent with diastolic dysfunction Venous duplex bilateral lower extremity revealed no evidence of acute DVT. CTA of the chest demonstrated no evidence of aortic dissection or aneurysm. Meters Superintendent followed. Serial troponin were negative. EKG revealed no acute ischemic changes. Patient was ruled out for acute myocardial infarction. Due to diastolic dysfunction, patient was on mild diuresis with close monitoring of volumes and cardiorenal parameters. Meters Superintendent recommended outpatient stress test. Blood pressure was managed with calcium channel bryon and beta-bryon , remained stable. Zetia and statin continued. DVT prophylaxis provided. Meters Superintendent cleared patient for endoscopy and colonoscopy. Top Flavor Attendant followed. Supplemental oxygen titrated to keep pulse oximetry above 90%. Handheld nebulizing therapy with bronchodilator provided. Prior to discharge pulse oximetry stable on room air. Infectious disease specialist followed . Sputum culture revealed Angelica. Antibiotic provided as per ID specialist recommendation. Patient completed antibiotic course while in the hospital. GI specialist followed. Patient with evidence of anemia. Stool for occult blood was positive. Hemoglobin and hematocrit were closely monitored with goal to keep hemoglobin above 7. Prior to discharge hemoglobin 10.8, hematocrit 32.4. Anemia work-up revealed evidence of anemia of iron deficiency with ferritin 40. Patient was on IV Venofer while in the hospital. After cardiology clearance, patient undergone upper endoscopy with biopsy and colonoscopy on 07/20, which revealed gastritis, status post biopsy , one colonic polyp was removed, internal hemorrhoids. GI specialist recommended to follow-up with pathology and treat accordingly. GI specialist recommended outpatient capsule endoscopy for evaluation of the small intestines source of bleeding. Diet was advanced as tolerated. Bowel regimen instituted. Antiemetic provided as needed. Patient was able to tolerate diet. GI prophylaxis with PPI provided. Patient clinically stabilized and was ready for discharge home. FINAL DIAGNOSES: CHF with diastolic dysfunction Probably pneumonia Obstructive airway disease Bronchitis Iron deficiency anemia Status post EGD and colonoscopy Gastritis, status post biopsy Status post 1 colonic polyp removal Internal hemorrhoids Hypertension Hyperlipidemia Spinal compression fracture DISCHARGE MEDICATIONS: See Medication Reconciliation list. DISCHARGE INSTRUCTIONS: Patient was discharged home . Follow up with primary care provider in one week. Follow-up with GI specialist as outpatient for capsule endoscopy I have been assigned to dictate discharge summary for this account. I was not involved in the patient's management. Tammy Olivares NP Jul 21, 2019 09:39
== END 2019-07-20 12:55 | disposition home or self-care (01) | DRG 291 ==
LOC: EMR 15:24 → 2E 16:25 → EDBEDREQ 17:05 → 3E 07-18 14:20
PROC: 0DB78ZX Excision of Stomach, Pylorus, Via Natural or Artificial Opening Endoscopic, Diagnostic (ICD-10-PCS; principal; 2019-07-20 09:04)
PROC: 0DBN8ZZ Excision of Sigmoid Colon, Via Natural or Artificial Opening Endoscopic (ICD-10-PCS; principal; 2019-07-20 09:04)
DX: I11.0 Hypertensive heart disease with heart failure (principal); J18.9 Pneumonia, unspecified organism; S32.008A Other fracture of unspecified lumbar vertebra, initial encounter for closed fracture; D64.9 Anemia, unspecified; I50.33 Acute on chronic diastolic (congestive) heart failure; J44.9 Chronic obstructive pulmonary disease, unspecified; D50.9 Iron deficiency anemia, unspecified; K29.70 Gastritis, unspecified, without bleeding; K64.8 Other hemorrhoids; E78.5 Hyperlipidemia, unspecified; Z88.1 Allergy status to other antibiotic agents; D12.5 Benign neoplasm of sigmoid colon; J40 Bronchitis, not specified as acute or chronic; R11.2 Nausea with vomiting, unspecified; R19.7 Diarrhea, unspecified; M81.0 Age-related osteoporosis without current pathological fracture; X58.XXXA Exposure to other specified factors, initial encounter; I27.20 Pulmonary hypertension, unspecified
CPT/HCPCS: 36415; 71045; 71275; 74174; 80048; 80053; 80061; 81003; 82270; 82378; 82607; 82728; 82746; 83036; 83540; 83550; 83735; 83880; 84443; 84484; 85025; 87070; 87205; 93005; 93306; 93970; 94003; 94150; 94640; 94664; 96360; 99285; J8499